=== PATIENT | female | born 1945 | race African-American/Black ===

== ENCOUNTER → 2016-09-14 | Outpatient (CLI) | payer OTHER ==
[2016-02-20 22:30] VITALS: BP 139/72
[~2016-09-14] MED LIST: ALBU1.25 NEB; AMLO1TAB95 PO; ASPI-482 PO; ATOR20TA58 PO; BUDE10.2 IH; CARV12.5 PO
--- NOTE | 2016-09-17 17:26 | CARD ---
APPROVED REPORT EXAM: Two-dimensional and M-mode echocardiogram with Doppler and color Doppler. Other Information Quality : Average Rhythm : NSR INDICATION Cardiomyopathy Mitral valve replacement, tricuspid valve replacement 2D DIMENSIONS RVDd2.7 (2.9-3.5cm)Left Atrium(2D)3.6 (1.6-4.0cm) IVSd0.8 (0.7-1.1cm)Aortic Root(2D)2.3 (2.0-3.7cm) LVDd4.2 (3.9-5.9cm)LVOT Diameter2.0 (1.8-2.4cm) PWd0.8 (0.7-1.1cm)LVDs2.3 (2.5-4.0cm) SV61.5 mlLVEF(%)50.2 (>50%) Aortic Valve AoV Peak Audi.109.6cm/sAoV VTI24.0cm AO Peak GR.4.8mmHgLVOT Peak Audi.83.7cm/s LVOT VTI 18.19cmAO Mean GR.3mmHg RICARDO (VMAX)2.97jj5TMI (VTI)2.33cm2 Mitral Valve MV E Ghaqugxn242.2cm/sMV DECEL MEEG306cl MV A Axrphstg045.8cm/sMV E Mean Gr.3mmHg MV MEG65prR/A Ratio0.8 MV A Sulpwpwn043arPMK (PHT)3.10cm2 TDI E/Lateral E'11.1E/Medial E'12.0 Pulmonary Valve PV Peak Rtnsrosr56.0cm/sPV Peak Grad.2mmHg RVOT VTI12.4cm Tricuspid Valve TR P. Glgucxgj010sc/sRAP MFWEFVHO4npCu TR Peak Gr.04djHvFOGA06gaAf Pulmonary Vein S1 Dwqkvsyg59.6cm/sD2 Enbuaqpu36.4cm/s LEFT VENTRICLE The left ventricle is normal size. There is normal left ventricular wall thickness. Left ventricle sy stolic function is low normal. The Ejection Fraction is 50%. Apical motion consistent with pacemaker activation. Tissue Doppler imaging reveals mild left ventricular diastolic dysfunction. Transmitral D oppler flow pattern is Grade I-abnormal relaxation pattern. There is no ventricular septal defect vis ualized. RIGHT VENTRICLE The right ventricle is normal size. The right ventricular systolic function is normal. There is a pac emaker lead seen in the RV/RA. ATRIA The left atrium size is normal. The right atrium size is normal. The interatrial septum is intact wit h no evidence for an atrial septal defect or patent foramen ovale as noted on 2-D or Doppler imaging. AORTIC VALVE The aortic valve is mildly sclerotic. The aortic valve is trileaflet. Doppler and Color Flow revealed trace aortic regurgitation. There is no significant aortic valvular stenosis. MITRAL VALVE s/p mitral valve ring annuloplasty Calculated mitral valve area is 3.1 cm2 with a mean pressure gradi ent of 3 mmHg across the valve. Doppler and Color Flow revealed trace mitral regurgitation. TRICUSPID VALVE s/p tricuspid valve ring annuloplasty Doppler and Color Flow revealed trace tricuspid regurgitation. The PA pressure was estimated at 23 mmHg. Mean gradient of 3.1 mmHg with a peak of 5.9 mmHg across th e valve. PHT 56 msec. PULMONIC VALVE The pulmonic valve is not well visualized. Doppler and Color Flow revealed no pulmonic valvular regur gitation. There is no pulmonic valvular stenosis. GREAT VESSELS The aortic root is normal in size. Normal pulmonary venous flow (Doppler). The IVC is normal in size and collapses >50% with inspiration. PERICARDIAL EFFUSION There is no evidence of significant pericardial effusion. Critical Notification Critical Value: No <Conclusion> Left ventricle systolic function is low normal. The Ejection Fraction is 50%. Transmitral Doppler flow pattern is Grade I-abnormal relaxation pattern. Trace aortic regurgitation. s/p mitral valve ring annuloplasty without any stenosis. Trace mitral regurgitation. Probable tricuspid valve ring annuloplasty without any stenosis. Trace tricuspid regurgitation. The PA pressure was estimated at 23 mmHg. There is no evidence of significant pericardial effusion.
== END | disposition home or self-care (01) ==
LOC: ECHO 08:44
PROVIDERS: ATTEND Internal Medicine Cardiovascular Disease
DX: I08.3 Combined rheumatic disorders of mitral, aortic and tricuspid valves (principal)
CPT/HCPCS: 93306

== ENCOUNTER 2017-02-25 21:24 | Emergency (ER) | payer OTHER ==
[2017-02-25] MEDS ORDERED: IPRATRPIUM/ALBUTEROL 0.5/2.5MG 3 ML NEBU. (21:40)
[2017-02-25] MEDS: IPRATRPIUM/ALBUTEROL 0.5/2.5MG 3 ML NEBU. NEB (21:43)
[2017-02-25 21:52] LABS: HEMATOCRIT 41.7 % (36.0-47.0); HEMOGLOBIN 13.6 g/dL (12.0-15.5); MEAN CORPUSCULAR HEMOGLOBIN 30 pg (25-35); MEAN CORPUSCULAR HGB CONC 33 g/dL (31-37); MEAN CORPUSCULAR VOLUME 91 fL (79-100); PLATELET COUNT 199 x10^3/uL (140-400); RED BLOOD COUNT 4.59 x10^6/uL (3.50-5.40); RED CELL DISTRIBUTION WIDTH 14.7 % (11.5-14.5); WHITE BLOOD COUNT 5.2 x10^3/uL (4.0-11.0)
[2017-02-25] MEDS ORDERED: IPRATRPIUM/ALBUTEROL 0.5/2.5MG 3 ML NEBU. NEB (22:15)
[2017-02-25] MEDS: methylPREDNISolone SOD SUCC PF 125 MG/2 ML VIAL. IV (22:52)
[2017-02-25 23:06] LABS: TROPONINI < 0.017 ng/mL (0.000-0.055)
[2017-02-25 23:49] LABS: ANION GAP 13 (6-14); BLOOD UREA NITROGEN 28 mg/dL (7-20); BUN/CREATININE RATIO 23 (6-20); CARBON DIOXIDE 25 mmol/L (21-32); CHLORIDE 105 mmol/L (98-107); CREATININE 1.2 mg/dL (0.6-1.0); GFR 53.4; GLUCOSE 180 mg/dL (70-99); POTASSIUM 4.3 mmol/L (3.5-5.1); SODIUM 143 mmol/L (136-145)
[2017-02-25 23:54] LABS: ALBUMIN 3.9 g/dL (3.4-5.0); ALK PHOS 90 U/L (46-116); ALT (SGPT) 25 U/L (14-59); AST (SGOT) 23 U/L (15-37); TOTAL BILIRUBIN 0.3 mg/dL (0.2-1.0); TOTAL PROTEIN 7.8 g/dL (6.4-8.2)
== END 2017-02-26 00:25 | disposition left against medical advice (07) ==
LOC: ER 02-26 00:25
DX: J45.901 Unspecified asthma with (acute) exacerbation (principal); J20.9 Acute bronchitis, unspecified; I11.9 Hypertensive heart disease without heart failure; E11.9 Type 2 diabetes mellitus without complications; E78.00 Pure hypercholesterolemia, unspecified; Z95.1 Presence of aortocoronary bypass graft; Z95.0 Presence of cardiac pacemaker; Z95.2 Presence of prosthetic heart valve; Z79.899 Other long term (current) drug therapy
CPT/HCPCS: 36415; 71010; 80053; 84484; 85027; 93005; 94640; 96374; 99285-25; J2930; J7620

== ENCOUNTER → 2017-10-10 | Outpatient (CLI) | payer MEDICARE, OTHER | END | disposition home or self-care (01) | LOC: ECHO 11:05 | DX: I25.5 Ischemic cardiomyopathy (principal); I13.0 Hypertensive heart and chronic kidney disease with heart failure and stage 1 through stage 4 chronic kidney disease, or unspecified chronic kidney disease; E11.22 Type 2 diabetes mellitus with diabetic chronic kidney disease; N18.3 Chronic kidney disease, stage 3 (moderate); I50.9 Heart failure, unspecified; E78.5 Hyperlipidemia, unspecified; J44.9 Chronic obstructive pulmonary disease, unspecified | CPT/HCPCS: 93306 ==

== ENCOUNTER → 2018-10-09 | Outpatient (CLI) | payer OTHER, MEDICARE ==
[2017-03-09 15:02] VITALS: BP 123/60
[~2018-10-09] MED LIST changes: +AMOX1TAB58 PO; +AZIT250T6 PO; +GUAI118L20 PO; +METF500T16 PO; +PRED20TA PO
--- NOTE | 2018-10-09 15:28 | CARD ---
MR#: [id number] Date of Study: 10/09/2018 Ordering Physician: KELLY HENNING, Referring Physician: KELLY HENNING Tech: Adrienne Jacobs RDCS APPROVED REPORT EXAM: Two-dimensional and M-mode echocardiogram with Doppler and color Doppler. Other Information Quality : Fair INDICATION Cardiac Disease: CAD Mitral and Tricuspid Repairs Surgery/Intervention Pacemaker: Date: 2008 CABG: Date: 2008 2D DIMENSIONS RVDd2.2 (2.9-3.5cm)Left Atrium(2D)3.2 (1.6-4.0cm) IVSd0.8 (0.7-1.1cm)Aortic Root(2D)2.5 (2.0-3.7cm) LVDd4.3 (3.9-5.9cm)LVOT Diameter1.9 (1.8-2.4cm) PWd0.9 (0.7-1.1cm)LVDs3.1 (2.5-4.0cm) FS (%) 28.6 %SV45.5 ml LVEF(%)55.4 (>50%) Aortic Valve AoV Peak Audi.111.0cm/sAoV VTI22.9cm AO Peak GR.4.9mmHgLVOT Peak Audi.89.0cm/s AO Mean GR.3mmHgAVA (VMAX)2.29cm2 RICARDO (VTI)2.40cm2 Mitral Valve MV E Xiykxkjc917.6cm/sMV E Peak Gr.10mmHg MV DECEL OEXE152lqLK A Cdpbqouq164.7cm/s MV E Mean Gr.5mmHgE/A Ratio1.0 Tricuspid Valve TR P. Nfiwrair001dt/sRAP IBKAWNYB3hcDs TR Peak Gr.81qmFxAFJE89seUg Pulmonary Vein S1 Mqleskxf08.7cm/sD2 Povcfrau22.1cm/s LEFT VENTRICLE The left ventricle is normal size. There is normal left ventricular wall thickness. Left ventricle sy stolic function is mildly impaired. The Ejection Fraction is 45-50%. There is mild global hypokinesis of the left ventricle. Septal motion suggestive of conduction defect. Transmitral Doppler flow patte rn is Grade I-abnormal relaxation pattern. RIGHT VENTRICLE The right ventricle is mildly dilated. RV Systolic function is mildly reduced. There is a pacemaker l ead in the right ventricle. ATRIA The left atrium size is normal. The right atrium is mildly dilated. A pacemaker is seen in the right atrium consistent with history. The interatrial septum is intact with no evidence for an atrial septa l defect or patent foramen ovale as noted on 2-D or Doppler imaging. AORTIC VALVE The aortic valve is calcified but opens well. Doppler and Color Flow revealed trace aortic regurgitat ion. There is no significant aortic valvular stenosis. MITRAL VALVE There is a mitral valve repair. There is no evidence of mitral valve prolapse. Calculated mitral valv e area is 1.6 cm2 with maximum pressure gradient of 10 mmHg and mean pressure gradient of 5 mmHg. Dop pler and Color-flow revealed trace to mild mitral regurgitation. TRICUSPID VALVE There is a tricuspid valve repair. Doppler and Color Flow revealed trace tricuspid regurgitation. The re is mild pulmonary hypertension. The PA pressure was estimated at 32 mmHg. There is no tricuspid va lve stenosis. PULMONIC VALVE The pulmonic valve is not well visualized. Doppler and Color Flow revealed no pulmonic valvular regur gitation. There is no pulmonic valvular stenosis. GREAT VESSELS The aortic root is normal in size. The ascending aorta is not well seen. The IVC is normal in size an d collapses >50% with inspiration. PERICARDIAL EFFUSION There is no evidence of significant pericardial effusion. Critical Notification Critical Value: No <Conclusion> Left ventricle systolic function is mildly impaired. The Ejection Fraction is 45-50%. There is mild global hypokinesis of the left ventricle. Septal motion suggestive of conduction defect . There is a pacemaker lead in the right ventricle. RV Systolic function is mildly reduced. Calculated mitral valve area is 1.6 cm2 with maximum pressure gradient of 10 mmHg and mean pressure g radient of 5 mmHg. Signed by : Rodolfo Kaur, Electronically Approved : 10/09/2018 15:28:07
== END | disposition home or self-care (01) ==
LOC: ECHO 12:47
PROVIDERS: ATTEND Internal Medicine Cardiovascular Disease
DX: I08.0 Rheumatic disorders of both mitral and aortic valves (principal); I25.10 Atherosclerotic heart disease of native coronary artery without angina pectoris; I27.20 Pulmonary hypertension, unspecified; Z95.0 Presence of cardiac pacemaker
CPT/HCPCS: 93306

== ENCOUNTER → 2018-10-29 | Outpatient (CLI) | payer OTHER ==
[2017-03-09 15:02] VITALS: BP 123/60
--- NOTE | 2018-10-29 08:43 | RAD ---
MR#: [id number] Date of Study: 10/29/2018 Ordering Physician: KELLY HENNING, Referring Physician: KELLY HENNING, Tech: Theo Velasquez MBA, RDMS, RVT, RDCS, RTR APPROVED REPORT Patient Location: OUT-PATIENT Indications Uncontrolled HTN Renal Artery Doppler Right Renal Artery Left Renal Arter y Proximal 122.0/26.0 cm/secProximal 81.0/16.0 cm/sec Mid 121.0/20.0 cm/secMid 80.0/19.0 cm/sec Distal 70.0/23.0 cm/secDistal 73.0/22.0 cm/sec Renal/Aorta Ratio 0.93Renal/Aorta Ratio 0.61 Prox. Resistive Index 0.79Prox. Resistive Index 0.80 Mid Resistive Index 0.83Mid Resistive Index 0.77 Distal Resistive Index 0.68Distal Resistive Index 0.70 Rt. Segmental A. 27.0/11.0 cm/secLt. Segmental A. 24.0/7.0 cm/sec Renal Measurements RightLeft Kidney Skkwhp12 cm cmKidney Length9.5 cm cm Right Additional FindingsLeft Additional Findings Aortic Duplex A/PTransverseLongitudinal Proximal Aorta 1.8cm Mid Aorta 1.5cm Distal Aorta 1.4cm Aortic Doppler VelocityWaveform Proximal Aorta 131.0 cm/sec Findings Arteaga scale images are grossly wnl. Left renal cyst noted in the inferior pole measuring around 2.7 cm. Peak systolic velocities are grossly wnl. No significant renal artery stenosis. Normal RAR and RI Critical Notification Critical Value: No <Conclusion> No significant renal artery stenosis. Signed by : Rodolfo Kaur, Electronically Approved : 10/29/2018 08:42:26
== END | disposition home or self-care (01) ==
LOC: US 07:16
PROVIDERS: ATTEND Internal Medicine Cardiovascular Disease
DX: I10 Essential (primary) hypertension (principal); N28.1 Cyst of kidney, acquired
CPT/HCPCS: 93975

== ENCOUNTER 2019-02-09 17:01 | Emergency (ER) | payer OTHER ==
[~2019-02-09] VITALS: Ht 160 cm; Wt 63.5 kg
[2019-02-09 17:45] VITALS: BP 140/67
--- NOTE | 2019-02-09 17:54 | PHYS DOC ---
Past Medical History Past Medical History: Asthma, Diabetes-Type II, High Cholesterol, Heart Disease, Hypertension, Renal Disease (JUAN RODRIGUEZ MD) Past Surgical History: Coronary Bypass Surgery, Pacemaker, Other Additional Past Surgical Histo: VALVE REPLACEMENT (JUAN RODRIGUEZ MD) Alcohol Use: None Drug Use: None (JUAN RODRIGUEZ MD) Adult General Chief Complaint Chief Complaint: SHORTNESS OF BREATH HPI HPI Patient is a 73 year old female with history of hypertension, dyslipidemia, coronary artery disease and status post CABG, diabetes mellitus and asthma who presents with complaint of shortness of breath. Patient states she had shingles in left side of lower chest and flank for 5 weeks that still is painful without new change today. Patient complaining of shortness of breath since 1400 today as a constant shortness of breath with dry cough without chest pain, fever and chills, sore throat, earache, sick contact. Patient states she took 2 home nebulizers without improvement of her condition. (JUAN RODRIGUEZ MD) Review of Systems Review of Systems Constitutional: Denies fever or chills [] Eyes: Denies change in visual acuity, redness, or eye pain [] HENT: Denies nasal congestion or sore throat [] Respiratory: Reports cough and shortness of breath Cardiovascular: No additional information not addressed in HPI [] GI: Denies abdominal pain, nausea, vomiting, bloody stools or diarrhea [] : Denies dysuria or hematuria [] Musculoskeletal: Denies back pain or joint pain [] Integument: Denies skin lesions [] Neurologic: Denies headache, focal weakness or sensory changes [] Endocrine: Denies polyuria or polydipsia [] All other systems were reviewed and found to be within normal limits, except as documented in this note. (JUAN RODRIGUEZ MD) Current Medications Current Medications Current Medications Medications (Trade) Dose Ordered Sig/Jeremy Start Time Stop Time Status Last Admin Dose Admin Albuterol/ Ipratropium (Duoneb) 3 ml 1X ONCE 02/09/19 17:45 02/09/19 17:47 DC 02/09/19 18:03 3 ML Methylprednisolone Sodium Succinate (SOLU-Medrol 125MG VIAL) 125 mg 1X ONCE 02/09/19 17:45 02/09/19 17:47 DC 02/09/19 18:12 125 MG (AMILCAR HANDY DO) Allergies Allergies Allergies Coded Allergies Type Severity Reaction Last Updated Verified No Known Drug Allergies 10/15/14 No (AMILCAR HANDY DO) Physical Exam Physical Exam Constitutional: Well developed, well nourished, mild distress, non-toxic appearance. [] HENT: Normocephalic, atraumatic, bilateral external ears normal, oropharynx moist, no oral exudates, nose normal. [] Eyes: PERRLA, EOMI, conjunctiva normal, no discharge. [] Neck: Normal range of motion, no tenderness, supple, no stridor. [] Cardiovascular:Heart rate regular rhythm, no murmur [] Lungs & Thorax: Mild respiratory distress with wheezing and intercostal retraction Abdomen: Bowel sounds normal, soft, no tenderness, no masses, no pulsatile masses. [] Skin: Warm, dry, no erythema, left lower chest and flank area with scar of shingles Back: No tenderness, no CVA tenderness. [] Extremities: No tenderness, no cyanosis, no clubbing, ROM intact, no edema. [] Neurologic: Alert and oriented X 3, normal motor function, normal sensory function, no focal deficits noted. [] Psychologic: Affect normal, judgement normal, mood normal. [] (JUAN RODRIGUEZ MD) Current Patient Data Vital Signs Vital Signs Date Time Temp Pulse Resp B/P (MAP) Pulse Ox O2 Delivery O2 Flow Rate FiO2 02/09/19 17:55 98 Room Air 02/09/19 17:45 98.1 82 18 140/67 (91) 98.1 (AMILCAR HANDY DO) Lab Values Laboratory Tests Test 02/09/19 18:00 02/09/19 18:50 White Blood Count 7.4 x10^3/uL (4.0-11.0) Red Blood Count 4.19 x10^6/uL (3.50-5.40) Hemoglobin 12.5 g/dL (12.0-15.5) Hematocrit 37.8 % (36.0-47.0) Mean Corpuscular Volume 90 fL (79-100) Mean Corpuscular Hemoglobin 30 pg (25-35) Mean Corpuscular Hemoglobin Concent 33 g/dL (31-37) Red Cell Distribution Width 16.0 % (11.5-14.5) H Platelet Count 159 x10^3/uL (140-400) Neutrophils (%) (Auto) 57 % (31-73) Lymphocytes (%) (Auto) 11 % (24-48) L Monocytes (%) (Auto) 12 % (0-9) H Eosinophils (%) (Auto) 19 % (0-3) H Basophils (%) (Auto) 1 % (0-3) Neutrophils # (Auto) 4.2 x10^3/uL (1.8-7.7) Lymphocytes # (Auto) 0.8 x10^3/uL (1.0-4.8) L Monocytes # (Auto) 0.9 x10^3/uL (0.0-1.1) Eosinophils # (Auto) 1.4 x10^3/uL (0.0-0.7) H Basophils # (Auto) 0.1 x10^3/uL (0.0-0.2) Segmented Neutrophils % 64 % (35-66) Lymphocytes % 6 % (24-48) L Atypical Lymphocytes % (Manual) 1 % (0-0) H Monocytes % 6 % (0-10) Eosinophils % 23 % (0-5) H Platelet Estimate Adequate (ADEQUATE) Sodium Level 139 mmol/L (136-145) Potassium Level 4.2 mmol/L (3.5-5.1) Chloride Level 102 mmol/L (98-107) Carbon Dioxide Level 30 mmol/L (21-32) Anion Gap 7 (6-14) Blood Urea Nitrogen 22 mg/dL (7-20) H Creatinine 1.1 mg/dL (0.6-1.0) H Estimated GFR (Cockcroft-Gault) 58.7 BUN/Creatinine Ratio 20 (6-20) Glucose Level 163 mg/dL (70-99) H Calcium Level 9.7 mg/dL (8.5-10.1) Total Bilirubin 0.4 mg/dL (0.2-1.0) Aspartate Amino Transferase (AST) 20 U/L (15-37) Alanine Aminotransferase (ALT) 19 U/L (14-59) Alkaline Phosphatase 84 U/L (46-116) Creatine Kinase 66 U/L (26-192) Troponin I Quantitative < 0.017 ng/mL (0.000-0.055) DV-Ttw-U-Type Natriuretic Peptide 477 pg/mL (0-124) H Total Protein 7.8 g/dL (6.4-8.2) Albumin 3.8 g/dL (3.4-5.0) Albumin/Globulin Ratio 1.0 (1.0-1.7) Laboratory Tests 02/09/19 18:00 Laboratory Tests 02/09/19 18:50 (AMILCAR HANDY DO) EKG EKG [] (JUAN RODRIGUEZ MD) Radiology/Procedures Radiology/Procedures [] (JUAN RODRIGUEZ MD) Course & Med Decision Making Course & Med Decision Making Pertinent Labs and Imaging studies are pending. Evaluation of patient in ER showed 73-year-old female patient multiple medical problems presented to ER with complaining of shortness of breath since this afternoon. Labs and chest x-ray and EKG is pending. Sign out given to at 1800 for further evaluation and final disposition. Discussed current findings and plan with patient and family, who acknowledge understanding and agreement. (JUAN RODRIGUEZ MD) Course & Med Decision Making Shortness of breath/symptoms improved with breathing treatment and steroids. EKG, chest x-ray and lab work unrevealing. Symptoms most consistent with asthma exacerbation. We'll treat supportively with pulmonology follow-up. Return precautions reviewed. Patient verbalizes understanding and agreement discharge instructions prior to departure. (AMILCAR HANDY DO) Dragon Disclaimer Dragon Disclaimer This electronic medical record was generated, in whole or in part, using a voice recognition dictation system. (JUAN RODRIGUEZ MD) Departure Departure Impression: Primary Impression: Asthma exacerbation Additional Impression: Shortness of breath Disposition: 01 HOME, SELF-CARE Condition: GOOD Referrals: SHAHAB GARCIA MD (PCP) Patient Instructions: Asthma, Adult, Ayis-zv-Jxgy, Shortness of Breath, Uvia-pu-Uljn Additional Instructions: Please take steroids and antibiotics as directed and continue home nebulized breathing treatments every 4 hours as needed. Follow up with your chief catalyst operator as scheduled. Return to the ED if new or worsening symptoms. Scripts Azithromycin (ZITHROMAX) 250 Mg Tablet 1 PKG PO UD, #6 TAB Prov: AMILCAR HANDY DO 02/09/19 Prednisone (PREDNISONE) 50 Mg Tablet 1 TAB PO DAILY, #5 TAB Prov: AMILCAR HANDY DO 02/09/19 Problem Qualifiers JUAN RODRIGUEZ MD Feb 09, 2019 17:54 AMILCAR HANDY DO Feb 09, 2019 19:39
[2019-02-09] MEDS: IPRATRPIUM/ALBUTEROL 0.5/2.5MG 3 ML NEBU. NEB ONE (18:03)
[2019-02-09 18:11] LABS: BASO # 0.1 x10^3/uL (0.0-0.2); BASO % 1 % (0-3); EOS # 1.4 x10^3/uL (0.0-0.7); EOS % 19 % (0-3); HEMATOCRIT 37.8 % (36.0-47.0); HEMOGLOBIN 12.5 g/dL (12.0-15.5); LYMPH # 0.8 x10^3/uL (1.0-4.8); LYMPH % 11 % (24-48); MEAN CORPUSCULAR HEMOGLOBIN 30 pg (25-35); MEAN CORPUSCULAR HGB CONC 33 g/dL (31-37); MEAN CORPUSCULAR VOLUME 90 fL (79-100); MONO # 0.9 x10^3/uL (0.0-1.1); MONO % 12 % (0-9); NEUT # 4.2 x10^3/uL (1.8-7.7); NEUT % 57 % (31-73); PLATELET COUNT 159 x10^3/uL (140-400); RED BLOOD COUNT 4.19 x10^6/uL (3.50-5.40); WHITE BLOOD COUNT 7.4 x10^3/uL (4.0-11.0)
[2019-02-09] MEDS: methylPREDNISolone SOD SUCC PF 125 MG/2 ML VIAL. IV ONE (18:12)
[2019-02-09 19:06] LABS: % ATYL 1 % (0-0); % EOS 23 % (0-5); % LYMPHS 6 % (24-48); % MONOS 6 % (0-10); % SEGS 64 % (35-66)
--- NOTE | 2019-02-09 19:06 | RAD ---
AP portable chest 02/09/2019. Reason for exam: Shortness of breath. Comparison is made with a study of 03/08/2017. A pacemaker device remains in place along with a prosthetic valve. The left lower lobe is reinflated. No new infiltrate or effusion is seen. The heart may be mildly enlarged, but appears unchanged. IMPRESSION: Clearing of the left base since the prior radiograph. No acute findings. Electronically signed by: Oscar Acosta Jr., MD (02/09/2019 7:03 PM) [facility]
[2019-02-09 19:07] LABS: PLT ESTIMATE ADEQUATE (ADEQUATE)
[2019-02-09 19:10] LABS: CALCIUM 9.7 mg/dL (8.5-10.1); CREATININE 1.1 mg/dL (0.6-1.0); GFR 58.7; POTASSIUM 4.2 mmol/L (3.5-5.1)
[2019-02-09 19:17] LABS: ALBUMIN 3.8 g/dL (3.4-5.0); TOTAL BILIRUBIN 0.4 mg/dL (0.2-1.0); TOTAL PROTEIN 7.8 g/dL (6.4-8.2)
[2019-02-09] MEDS ORDERED: PRED50TA PO (19:39)
[2019-02-09] MEDS ORDERED: AZIT250T PO (19:39)
--- NOTE | 2019-02-10 06:54 | EKG ---
[facility] [address] [place] [address] Test Date: 2019-02-09 Test Time: 18:08:58 Pat Name: MAJO CONNOLLY Department: Room: Gender: F Gas Fitter: : 1945 Requested By: JUAN RODRIGUEZ Order Number: [id number] Reading MD: Rodolfo Kaur MD Measurements Intervals [place] Rate: 82 P: 90 [place]: 162 QRS: -58 QRSD: 118 T: 56 QT: 394 QTc: 463 Interpretive Statements PROBABLE SINUS RHYTHM RBBB NON-SPECIFIC ST/T CHANGES LAFB Electronically Signed On 02-12-2019 11:08:56 APPEALS AND GENERALIST CLERK by Rodolfo Kaur MD
== END 2019-02-09 20:05 | disposition home or self-care (01) ==
LOC: ER 17:01
DX: J45.901 Unspecified asthma with (acute) exacerbation (principal); I10 Essential (primary) hypertension; I25.810 Atherosclerosis of coronary artery bypass graft(s) without angina pectoris; J45.909 Unspecified asthma, uncomplicated; E11.9 Type 2 diabetes mellitus without complications; E78.00 Pure hypercholesterolemia, unspecified; I11.9 Hypertensive heart disease without heart failure; Z95.0 Presence of cardiac pacemaker
CPT/HCPCS: 36415; 71045; 80053; 82550; 83880; 84484; 85007; 85025; 93005; 94640; 96374; 99285; J2930; J7620

== ENCOUNTER → 2019-04-21 | Outpatient (CLI) | payer OTHER ==
[~2019-04-21] MED LIST changes: +AZIT250T PO; +PRED50TA PO; +REGADENOSON 0.4 MG/5 ML DISP.SYRIN. IV ONE
--- NOTE | 2019-04-21 14:09 | RAD ---
MR#: [id number] Date of Study: 04/21/2019 Ordering Physician: KELLY HENNING, Referring Physician: PATITO RAMIREZ Tech: RT Cydney (R) (N) APPROVED REPORT Test Type: Pharmacological Stress Nurse/Tech: Courtney HOPE Test Indications: CAD Cardiac History: 2009=2 valves & CABG x3, HTN, AICD, See EMR. Medications: See EMR. Medical History: Asthma, DM, See EMR. Resting ECG: Paced Resting Heart Rate: 81 bpm Resting Blood Pressure: 128/69mmHg Pretest Chest Pain: None Nurse/Tech Notes Lungs CTA, Heart tones regular. Consent: The procedure was explained to the patient in lay terms. Informed consent was witnessed. Eusebio eout was entered into [employer]. History and Stress Test performed by RT Ashley (R) (N) Pharm. Details Pharmacologic stress testing was performed using 0.4mg per 5ml of regadenoson given intravenously ove r 7-10 seconds. Stress Symptoms Dyspnea POST EXERCISE Reason for Termination: Infusion complete Max HR: 115 bpm Max Blood Pressure: 105/47mmHg Blood Pressure response to exercise: Normal blood pressure response during stress. Heart Rate response to exercise: WNL Chest Pain: No. Arrhythmia: Yes. Frequent PVCs. ST Change: No. INTERPRETATION Stress EKG Conclusion: The resting EKG shows an atrial paced rhythm. The stress EKG shows no significant changes from baseline. No EKG evidence of stressed induced ischemia. Imaging Protocol IMAGE PROTOCOL: Rest Tc-99m/stress Tc-99m 1 day Rest: Stress: Viability: Radiopharm.Tc99m VuiurvfbiCw80i Sestamibi Nsed17aLs 30mCi Duration 15min. 15min. Img Date 04/21/2019 04/21/2019 Inj-Img Lodh96kbv. 60min. Rest Admin Site:IV - Left AntecubitalAdministrator:RT Cydney (R)(N) Stress Admin Site: IV - Left AntecubitalAdministrator: RT Abeba Ramirez)(N) STRESS DATA End Diast. Vol.57.0mlAv. Heart Rate81.0bpm End Syst. Vol.16.0mlCO Index BSA0.0L/min Myocardial Mass97.0gEject. Weuhwgbf82.0% Stress Rates Pk. Fill Rate2.86EDV/secLVtime Pk. Fill 161.48msec Pk. Empty Rate4.81ESV/secLVtime Pk. Gtwcz400.72msec 1/3 Pk. Fill1.35EDV/sec Stress Scores Regional WT0.00Summed WT5.00 Regional WM0.00Summed WM10.00 LV Perfusion The stress images show no significant defects. The rest images show no significant defects. Nuclear imaging shows no reversible ischemia or infarct. Wall Motion Left ventricular systolic function is normal with an ejection fraction of greater than 70%. LV Perf. Quant 17 Seg. SSS0.00 17 Seg. SRS0.00 17 Seg. SDS0.00 Stress Defect Extent (% LAD)0.00Rest Defect Extent (% LAD)0.00Rev. Defect Extent (% LAD)0.00 Stress Defect Extent (% LCX) 0.00Rest Defect Extent (% LCX)0.00Rev. Defect Extent (% LCX)0.00 Stress Defect Extent (% RCA)0.00Rest Defect Extent (% RCA)0.00Rev. Defect Extent (% RCA)0.00 Stress Defect Extent (% TITUS)0.00Rest Defect Extent (% TITSU)0.00Rev. Defect Extent (% TITUS)0.00 Conclusion 1. Paced rhythm. 2. Nuclear imaging shows no reversible ischemia or infarct. 3. Normal left ventricular systolic function with an ejection fraction of greater than 70%. 4. Low risk Lexiscan nuclear stress test. Signed by : Oscar Rivas MD Electronically Approved : 04/21/2019 14:09:31
== END | disposition home or self-care (01) ==
LOC: NM 08:43
PROVIDERS: ATTEND Internal Medicine Cardiovascular Disease
DX: I25.810 Atherosclerosis of coronary artery bypass graft(s) without angina pectoris (principal); I10 Essential (primary) hypertension; J45.909 Unspecified asthma, uncomplicated; E11.9 Type 2 diabetes mellitus without complications; Z95.1 Presence of aortocoronary bypass graft; Z95.810 Presence of automatic (implantable) cardiac defibrillator
CPT/HCPCS: 78452; 93017; A9500; J2785

== ENCOUNTER → 2019-06-25 | Outpatient (CLI) | payer OTHER ==
[~2019-06-25] MED LIST changes: -REGADENOSON 0.4 MG/5 ML DISP.SYRIN. IV ONE
--- NOTE | 2019-06-25 11:35 | RAD ---
Examination: Ultrasound pelvis HISTORY: History of pelvic pain, discomfort COMPARISON: None available FINDINGS: The uterus measures 5.1 x 3.6 x 2.3 cm. The endometrium could not be identified. The right and left ovaries could not be identified due to overlying bowel gas. IMPRESSION: Limited exam. Electronically signed by: Yehuda Carrasquillo MD (06/25/2019 11:32 AM) [id number]
--- NOTE | 2019-06-25 11:43 | RAD ---
Examination: Ultrasound abdomen complete HISTORY: History of abdominal pain, discomfort COMPARISON: None available FINDINGS: The liver length measures 16.7 cm. The common bile duct measures 1.7 mm in diameter. There is a small echogenicity identified in the gallbladder measuring 4 mm could be a polyp or sludge. The visualized pancreas grossly appears unremarkable. The right kidney measures 8.9 x 4.6 x 2.6 cm. The left kidney measures 9.1 x 3.6 x 4.0 cm. There is a cystic structure identified in the left kidney measuring 2.1 cm likely a cyst. The spleen measures 9.4 cm. The visualized aorta, IVC are within normal limits of dimension. IMPRESSION: 1. Small echogenicity identified in the gallbladder measuring 4 mm could be a polyp or sludge. 2. A 2.1 cm cyst identified in the left kidney. Electronically signed by: Yehuda Carrasquillo MD (06/25/2019 11:40 AM) [id number]
== END | disposition home or self-care (01) ==
LOC: US 09:43
PROVIDERS: ATTEND Nurse Practitioner
DX: N28.1 Cyst of kidney, acquired (principal); K82.8 Other specified diseases of gallbladder
CPT/HCPCS: 76700; 76856

== ENCOUNTER → 2019-07-24 | Outpatient (CLI) | payer MEDICARE, OTHER ==
[~2019-07-24] VITALS: Ht 157.5 cm; Wt 62.1 kg
[~2019-07-24] MED LIST changes: +SINCALIDE 1.24 MCG in IV NORMAL SALINE 50ML 30 ML IV ONE
--- NOTE | 2019-07-24 10:12 | RAD ---
Examination: Hepatobiliary Scan: History: gallbladder polyp. Technique: 5.5 mCi technetium 99m Choletec was administered intravenously and spot views were obtained on the gamma camera for a Nuclear Medicine hepatobiliary scan. 1.2 mcg of CCK drip was administered over 30 minutes and the region of interest was drawn around the gallbladder and gallbladder ejection fraction was calculated. Findings: There is rapid uptake of activity from the blood pool and concentration in the liver. Activity seen in the gallbladder and small bowel. There is a rapid response of the gallbladder to CCK and the gallbladder ejection fraction is 99% which is normal. Impression: Normal hepatobiliary scan. Normal gallbladder function. Electronically signed by: Yehuda Carrasquillo MD (07/24/2019 10:09 AM) [id number]
== END | disposition home or self-care (01) ==
LOC: NM 11:34
PROVIDERS: ATTEND Surgery
DX: K82.4 Cholesterolosis of gallbladder (principal)
CPT/HCPCS: 78227; A9537; J2805

== ENCOUNTER → 2019-10-28 | Outpatient (CLI) | payer OTHER ==
[~2019-10-28] MED LIST changes: -SINCALIDE 1.24 MCG in IV NORMAL SALINE 50ML 30 ML IV ONE
--- NOTE | 2019-10-28 16:29 | CARD ---
MR#: [id number] Date of Study: 10/28/2019 Ordering Physician: KELLY HENNING, Referring Physician: KELLY HENNING Tech: Adrienne Jacobs RDCS APPROVED REPORT EXAM: Two-dimensional and M-mode echocardiogram with Doppler and color Doppler. Other Information Quality : Good INDICATION Cardiac Disease: CAD Surgery/Intervention ICD/Pacemaker: Date: 2008 CABG: Date: 2008 2D DIMENSIONS RVDd2.8 (2.9-3.5cm)Left Atrium(2D)2.6 (1.6-4.0cm) IVSd0.8 (0.7-1.1cm)Aortic Root(2D)2.5 (2.0-3.7cm) LVDd4.0 (3.9-5.9cm)LVOT Diameter2.0 (1.8-2.4cm) PWd0.9 (0.7-1.1cm)LVDs2.6 (2.5-4.0cm) FS (%) 34.5 %SV43.8 ml LVEF(%)64.2 (>50%) Aortic Valve AoV Peak Audi.135.7cm/sAoV VTI26.9cm AO Peak GR.7.4mmHgLVOT Peak Audi.74.6cm/s LVOT VTI 16.19cmAO Mean GR.4mmHg RICARDO (VMAX)1.83qm1EXO (VTI)1.86cm2 Mitral Valve MV E Vjbcxmbp481.7cm/sMV DECEL [id number] MV A Chdhnidq889.1cm/sMV QNM36dq E/A Ratio1.1MVA (PHT)3.71cm2 TDI E/Lateral E'21.0E/Medial E'30.9 Tricuspid Valve TR P. Wukpfzke849sr/sRAP UKRJYRBR6rxQp TR Peak Gr.39cwLcWHMS75elHh Pulmonary Vein S1 Uxgyzibb79.7cm/sD2 Zsoomnud19.2cm/s LEFT VENTRICLE The left ventricle is normal size. There is normal left ventricular wall thickness. The left ventricu lar systolic function is normal. The Ejection Fraction is 55%. Septal motion consistent with conducti on abnormality. Transmitral Doppler flow pattern is Grade I-abnormal relaxation pattern. RIGHT VENTRICLE The right ventricle is normal size. The right ventricular systolic function is normal. There is a pac emaker lead in the right ventricle. ATRIA The left atrium size is normal. The right atrium size is normal. A pacemaker is seen in the right atr ium consistent with history. The interatrial septum is intact with no evidence for an atrial septal d efect or patent foramen ovale as noted on 2-D or Doppler imaging. AORTIC VALVE The aortic valve is calcified but opens well. Doppler and Color Flow revealed no significant aortic r egurgitation. There is no significant aortic valvular stenosis. MITRAL VALVE The mitral valve has been repaired. There is no evidence of mitral valve prolapse. Calculated mitral valve area is 3.4 cm2 with a mean pressure gradient of 6 mmHg. Doppler and Color-flow revealed trace mitral regurgitation. TRICUSPID VALVE There is a tricuspid valve repair. Doppler and Color Flow revealed trace tricuspid regurgitation. The PA pressure was estimated at 31 mmHg. There is no tricuspid valve stenosis. PULMONIC VALVE The pulmonic valve is not well visualized. Doppler and Color Flow revealed no pulmonic valvular regur gitation. There is no pulmonic valvular stenosis. GREAT VESSELS The aortic root is normal in size. The ascending aorta is normal in size. The IVC is normal in size a nd collapses >50% with inspiration. PERICARDIAL EFFUSION There is no evidence of significant pericardial effusion. Critical Notification Critical Value: No <Conclusion> The left ventricular systolic function is normal. The Ejection Fraction is 55%. There is a pacer/ICD lead in the right atrium and ventricle. s/p tricuspid and mitral annuloplasty. Trace mitral regurgitation. Trace tricuspid regurgitation. The PA pressure was estimated at 31 mmHg. There is no evidence of significant pericardial effusion. Signed by : Kelly Henning, Electronically Approved : 10/28/2019 16:28:29
== END | disposition home or self-care (01) ==
LOC: ECHO 12:54
PROVIDERS: ATTEND Internal Medicine Cardiovascular Disease
DX: I35.8 Other nonrheumatic aortic valve disorders (principal); I25.10 Atherosclerotic heart disease of native coronary artery without angina pectoris
CPT/HCPCS: 93306

== ENCOUNTER 2019-11-07 19:19 | Emergency (ER) | payer OTHER ==
[~2019-11-07] VITALS: Ht 157.5 cm; Wt 60.0 kg
--- NOTE | 2019-11-07 19:53 | PHYS DOC ---
Past Medical History Past Medical History: Asthma, Diabetes-Type II, GERD, High Cholesterol, Heart Disease, Hypertension, Renal Disease Past Surgical History: Coronary Bypass Surgery, Pacemaker, Other Additional Past Surgical Histo: VALVE REPAIR x's 2, AICD Smoking Status: Former Smoker Alcohol Use: None Drug Use: None General Adult EDM: Chief Complaint: SHORTNESS OF BREATH HPI: HPI: Patient is a 74 year [id number]-nbb female past medical history of hypertension hyperlipidemia diabetes and kidney disease not on dialysis presents with a chief complaint of shortness of breath and bilateral lower extremity weakness. Patient states symptoms been ongoing for the last 2 days comes and goes and last for seconds. Patient states shortness of breath is worse with exertion. Patient denies any associated runny nose stuffy nose cough fever or chills. Patient denies any chest pain. She denies any abdominal pain. Patients lungs are clear on examination. Patient has no focal deficit. Patient arrived by private vehicle. She ambulated into the ER. Patient states he has been treated by her PCP since for UTI. Rx antibiotics on 10/17. Patient states she had a strong smelling urine. Patient states she had a follow up appointment with PCP today-- PCP prescribed a new medications which is at the pharmacy. Patient states pcp also ordered a Kidney US. State she has a history of elevated creatine. Review of Systems: Review of Systems: Constitutional: Denies fever or chills. [] Eyes: Denies change in visual acuity. [] HENT: Denies nasal congestion or sore throat. [] Respiratory: Denies cough [positive shortness of breath] Cardiovascular: Denies chest pain or edema. [] GI: Denies abdominal pain, nausea, vomiting, bloody stools or diarrhea. [] : Denies dysuria. [] Musculoskeletal: Denies back pain or joint pain. [] Integument: Denies rash. [] Neurologic: Denies headache, focal weakness or sensory changes. [lower extremities weakness] Endocrine: Denies polyuria or polydipsia. [] Lymphatic: Denies swollen glands. [] Psychiatric: Denies depression or anxiety. [] Heart Score: Risk Factors: Risk Factors: DM, Current or recent (<one month) smoker, HTN, HLP, family history of CAD, obesity. Risk Scores: Score 0 - 3: 2.5% MACE over next 6 weeks - Discharge Home Score 4 - 6: 20.3% MACE over next 6 weeks - Admit for Clinical Observation Score 7 - 10: 72.7% MACE over next 6 weeks - Early Invasive Strategies Allergies: Allergies: Allergies Coded Allergies Type Severity Reaction Last Updated Verified No Known Drug Allergies 10/15/14 No Physical Exam: PE: Constitutional: Well developed, well nourished, no acute distress, non-toxic appearance. [] HENT: Normocephalic, atraumatic, bilateral external ears normal, oropharynx moist, no oral exudates, nose normal. [] Eyes: PERRLA, EOMI, conjunctiva normal, no discharge. [] Neck: Normal range of motion, no tenderness, supple, no stridor. [] Cardiovascular:Heart rate regular rhythm, no murmur [] Lungs & Thorax: Bilateral breath sounds clear to auscultation [] Abdomen: Bowel sounds normal, soft, no tenderness, no masses, no pulsatile m asses. [] Skin: Warm, dry, no erythema, no rash. [] Back: No tenderness, no CVA tenderness. [] Extremities: No tenderness, no cyanosis, no clubbing, ROM intact, no edema. [] Neurologic: Alert and oriented X 3, normal motor function, normal sensory function, no focal deficits noted. [] Psychologic: Affect normal, judgement normal, mood normal. [] EKG: EKG: EKG at 1941 heart rate 81 sinus rhythm left axis deviation no STEMI EKG compared to previous which was April 19, 2009 no acute changes. [] Radiology/Procedures: Radiology/Procedures: [] Course & Med Decision Making: Course & Med Decision Making Pertinent Labs and Imaging studies reviewed. (See chart for details) [] Patient was evaluated for chief complaint. Work-up consisted of laboratory analysis radiologic imaging and EKG. Results reviewed and discussed with patient. Patient found to have a sodium of 128 and a creatinine of 1.5. Patient BNP slightly elevated at 847. Chest x-ray no focal infiltrates cardiomegaly or effusion. Patient currently denies any shortness of breath. She tells me that she was seen by her primary care physician today. Patient was treated with 1 L of IV fluids. Patient states she has prescription for urinary tract infection waiting at the pharmacy. At this time I think patient is stable for discharge. Patient advised to follow-up with her primary care physician. Patient advised to return to the ER if symptoms persist get worse or any new concerning symptoms arise. Dragon Disclaimer: Dragon Disclaimer: This electronic medical record was generated, in whole or in part, using a voice recognition dictation system. Departure Departure Impression: Primary Impression: Dyspnea Additional Impressions: UTI (urinary tract infection) Hyponatremia Elevated serum creatinine Disposition: HOME, SELF-CARE Condition: STABLE Referrals: SHAHAB GARCIA MD (PCP) Patient Instructions: Hyponatremia, Shortness of Breath, Urinary Tract Infection Justicifation of Admission Dx: Justifications for Admission: Justification of Admission Dx: N/A KASI DIAZ I DO Nov 07, 2019 19:53
[2019-11-07 20:11] LABS: BASO % 0 % (0-3); EOS # 0.3 x10^3/uL (0.0-0.7); EOS % 3 % (0-3); HEMATOCRIT 28.4 % (36.0-47.0); HEMOGLOBIN 9.4 g/dL (12.0-15.5); LYMPH % 8 % (24-48); MEAN CORPUSCULAR HEMOGLOBIN 29 pg (25-35); MEAN CORPUSCULAR HGB CONC 33 g/dL (31-37); MEAN CORPUSCULAR VOLUME 87 fL (79-100); MONO # 1.6 x10^3/uL (0.0-1.1); MONO % 12 % (0-9); NEUT # 10.5 x10^3/uL (1.8-7.7); NEUT % 78 % (31-73); PLATELET COUNT 326 x10^3/uL (140-400); RED BLOOD COUNT 3.24 x10^6/uL (3.50-5.40); WHITE BLOOD COUNT 13.5 x10^3/uL (4.0-11.0)
[2019-11-07 20:13] LABS: BILIRUBIN,URINE NEGATIVE (NEG); CLARITY,URINE CLEAR; COLOR,URINE YELLOW; NITRITE,URINE NEGATIVE (NEG); PH,URINE 5.5 (<5.0-8.0); PROTEIN,URINE NEGATIVE (NEG-TRACE); UROBILINOGEN,URINE 0.2 mg/dL (0.2 mg/dL)
[2019-11-07 20:18] LABS: SQUAMOUS EPITHELIAL CELL,UR MANY /LPF
[2019-11-07 20:20] LABS: BACTERIA,URINE MODERATE /HPF (0-FEW); RBC,URINE 0 /HPF (0-2)
[2019-11-07 20:22] LABS: CALCIUM 8.8 mg/dL (8.5-10.1); CREATININE 1.5 mg/dL (0.6-1.0)
[2019-11-07 20:31] LABS: ALBUMIN 2.5 g/dL (3.4-5.0); ALBUMIN/GLOBULIN RATIO 0.4 (1.0-1.7); TOTAL BILIRUBIN 0.4 mg/dL (0.2-1.0); TOTAL PROTEIN 8.1 g/dL (6.4-8.2)
--- NOTE | 2019-11-07 20:47 | RAD ---
Chest AP portable at 2000: Reason for examination: Short of breath. Comparison is made to previous study dated 02/09/2019. Pacemaker remains present over the left hemithorax with leads to the right atrium and right ventricle. Postop changes are seen in the sternum and mediastinum. The heart and mediastinum are otherwise unchanged. Lung heller show no acute congestion, infiltrates or pleural effusions and no pneumothorax is seen. No acute bony abnormalities are seen. IMPRESSION: No acute cardiopulmonary disease evident. Electronically signed by: Mimi Kee MD (11/07/2019 8:44 PM) TERRA
[2019-11-07] MEDS ORDERED: IV NORMAL SALINE 1000ML BAG 1,000 ML IV ONE (21:15)
[2019-11-07 21:43] VITALS: BP 126/75
--- NOTE | 2019-11-08 12:22 | EKG ---
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
--- NOTE | 2019-11-25 14:46 | EKG ---
[facility] [address] [place] [address] Test Date: 2019-11-07 Test Time: 19:41:56 Pat Name: MAJO CONNOLLY Department: Room: Gender: F [employer]: : 1945 Requested By: KASI DIAZ Order Number: [id number] Reading MD: Measurements Intervals [place] Rate: 81 P: -90 [place]: 132 QRS: -44 QRSD: 120 T: 17 QT: 372 QTc: 433 Interpretive Statements SINUS RHYTHM ABNORMAL LEFT AXIS DEVIATION R-S TRANSITION ZONE IN V LEADS DISPLACED TO THE RIGHT S1,S2,S3 PATTERN LEFT ANTERIOR FASCICULAR BLOCK INCOMPLETE RIGHT BUNDLE BRANCH BLOCK CONSIDER RIGHT VENTRICULAR HYPERTROPHY T ABNORMALITY IN ANTERIOR LEADS ABNORMAL ECG RI6.02 No previous ECG available for comparison MTDD
== END 2019-11-07 22:02 | disposition home or self-care (01) ==
LOC: ER 19:19
DX: N39.0 Urinary tract infection, site not specified (principal); E87.1 Hypo-osmolality and hyponatremia; R06.09 Other forms of dyspnea; R79.89 Other specified abnormal findings of blood chemistry; J45.909 Unspecified asthma, uncomplicated; E11.9 Type 2 diabetes mellitus without complications; K21.9 Gastro-esophageal reflux disease without esophagitis; E78.00 Pure hypercholesterolemia, unspecified; I11.9 Hypertensive heart disease without heart failure; Z87.891 Personal history of nicotine dependence; Z95.0 Presence of cardiac pacemaker
CPT/HCPCS: 36415; 71045; 80053; 81001; 83880; 84484; 85025; 87086; 93005; 96360; 99285; J7030

== ENCOUNTER → 2019-11-18 | Outpatient (CLI) | payer OTHER ==
[2019-11-07 21:43] VITALS: BP 126/75
--- NOTE | 2019-11-18 14:20 | RAD ---
Transabdominal pelvic ultrasound. INDICATION: Postmenopausal bleeding. COMPARISON: Pelvic ultrasound 06/25/2019. TECHNIQUE: Grayscale and color and spectral Doppler imaging of the pelvis was performed transabdominally using the distended urinary bladder as an acoustic window. FINDINGS: The uterus measures 14.3 x 11.2 x 7.4 cm. The endometrial stripe measures 1.5 cm. Neither the right nor the left ovary were identified by ultrasound. The uterus shows that the right uterine body a 2.8 x 2.8 x 2.3 cm oval mass compatible with a fibroid. The uterus also shows a 3.6 x 3.0 x 2.8 cm mass in the left fundal subserosal uterus compatible with a leiomyoma. Finally, submucosal 2.1 x 1.8 x 1.2 cm mass is seen, compatible with a submucosal fibroid IMPRESSION: Myomatous uterus as described. Thickening of the endometrial stripe up to 1.2 cm also noted. Consider correlation with tissue sampling if clinically appropriate. Electronically signed by: Christal Richey MD (11/18/2019 2:16 PM) [id number]
== END | disposition home or self-care (01) ==
LOC: US 11:56
PROVIDERS: ATTEND Obstetrics & Gynecology
DX: N80.0 Endometriosis of uterus (principal); N95.0 Postmenopausal bleeding; D25.9 Leiomyoma of uterus, unspecified; R93.89 Abnormal findings on diagnostic imaging of other specified body structures
CPT/HCPCS: 76856

== ENCOUNTER → 2019-12-26 | Outpatient (CLI) | payer OTHER ==
[~2019-12-26] MED LIST changes: +CARV25TA PO; +FLUT1BLS3 IH; +OLME40TA12 PO; +OMEP40CA45 PO; +SITA100T PO; +vitamin d PO
== END ==
LOC: SURGPAT 12:57
PROVIDERS: ATTEND Obstetrics & Gynecology
DX: Z01.812 Encounter for preprocedural laboratory examination (principal); Z20.828 Contact with and (suspected) exposure to other viral communicable diseases; N93.8 Other specified abnormal uterine and vaginal bleeding
CPT/HCPCS: U0003-CS

== ENCOUNTER 2019-12-31 06:04 | Day surgery (SDC) | payer OTHER ==
[2019-12-31] MEDS ORDERED: INSULIN LISPRO 100 UNIT/ML 3ML VIAL for OP,RR ONLY. SQ PRN (06:15)
[2019-12-31] MEDS ORDERED: LIDOCAINE 2% PF 5 ML VIAL. ONE (06:58)
[2019-12-31] MEDS ORDERED: PROPOFOL 10 MG/ML (20ML) VIAL. IV ONE (06:58)
[2019-12-31] MEDS ORDERED: fentaNYL PF VIAL 100 MCG/2 ML VIAL ONE (06:59)
[2019-12-31] MEDS ORDERED: INSULIN LISPRO 100 UNIT/ML 3ML VIAL for OP,RR ONLY. SQ ONE (07:00)
[2019-12-31] MEDS ORDERED: HYDROmorphone 2 MG/ML VIAL IV PRN (07:00)
[2019-12-31] MEDS ORDERED: PROCHLORPERAZINE 10 MG/2 ML VIAL. IV PRN (07:00)
[2019-12-31] MEDS ORDERED: MORPHINE SULFATE 2 MG/ML VIAL. IV PRN (07:00)
[2019-12-31] MEDS ORDERED: fentaNYL PF VIAL 100 MCG/2 ML VIAL IV PRN ×2 (07:00)
[2019-12-31] MEDS ORDERED: ONDANSETRON PF 4 MG/2 ML VIAL. IV PRN (07:00)
[2019-12-31] MEDS ORDERED: IV RINGERS,LACTATED 1000ML 1,000 ML IV SCH (07:00)
[2019-12-31] MEDS ORDERED: DEXAMETHASONE SOD PHOS 4 MG/ML VIAL ONE (08:02)
[2019-12-31] MEDS ORDERED: ONDANSETRON PF 4 MG/2 ML VIAL. ONE (08:02)
--- NOTE | 2019-12-31 09:16 | PDOC ---
BRIEF OPERATIVE NOTE Date: Dec 31, 2019 Pre-Op Diagnosis PMB and thickened endometrium on sonogram Post-Op Diagnosis same with submucosal uterine fibroids Procedure Performed hysteroscopic D&C with truclear and submucosal myomectomy Surgeon Dr. Annette Rivas Anesthesiologist Dr. Mace Anesthesia Type: General Blood Loss 20cc IV Fluid see anesthesia Urine Output straight cath prior Specimens Obtained uterine fibroids (endometrial currettage) Findings enlarged uterus sounded to 9-10cm normal left tubal ostia, right ostia blocked by fibroid, another right lower uterine fibroid and a fundal anterior fibroid lower right one was calcified, got some but could not get it all; got anterior fibroid and most of the right upper one blocking right tubal ostia (able to visualize it after removal) def 300 dense shaver blade used Complications none Operative Note [id number] had [place] dilators but did not have to dilate the 5/6 easily passed without manual dilation to admit the scope sounded to 9-10cm ANNETTE RIVAS MD Dec 31, 2019 09:16
[2019-12-31] MEDS ORDERED: MAG HYDROX/ALUMINUM HYD/SIMETH 30 ML ORAL.SUSP PO PRN (09:30)
[2019-12-31] MEDS ORDERED: CALCIUM CARBONATE 500 MG TAB.CHEW PO PRN (09:30)
[2019-12-31] MEDS ORDERED: 0.9 % SODIUM CHLORIDE 10 ML DISP.SYRIN. IV PRN (09:30)
[2019-12-31] MEDS ORDERED: SIMETHICONE 80 MG TAB.CHEW PO PRN (09:30)
[2019-12-31] MEDS ORDERED: HYDROcodone/APAP 5/325MG 1 TAB TABLET PO PRN (09:30)
[2019-12-31] MEDS ORDERED: NALOXONE 0.4 MG/ML VIAL. IV PRN (09:30)
[2019-12-31] MEDS ORDERED: diphenhydrAMINE HCL 25 MG CAPSULE PO PRN (09:30)
[2019-12-31] MEDS ORDERED: diphenhydrAMINE 50 MG/ML VIAL IV PRN (09:30)
[2019-12-31] MEDS ORDERED: IPRATRPIUM/ALBUTEROL 0.5/2.5MG 3 ML NEBU. ONE (09:46)
--- NOTE | 2019-12-31 09:56 | OP ---
DATE OF SURGERY: 12/31/2019 PREOPERATIVE DIAGNOSES: Postmenopausal bleeding with a thickened endometrial stripe seen on sonogram. POSTOPERATIVE DIAGNOSES: Postmenopausal bleeding with a thickened endometrial stripe seen on sonogram with submucosal uterine fibroids, at least 3 discrete fibroids seen and worked on. PROCEDURE: Hysteroscopic dilation and curretage with TruClear and submucosal myomectomy. SURGEON: Annette Rivas MD WAFER LINE WORKER: OR personnel. ANESTHESIA: General. ANESTHESIOLOGIST: Dr. Mace. ESTIMATED BLOOD LOSS: 20 mL. URINE OUTPUT: With a straight cath prior to procedure. SPECIMENS: Endometrial curettings, but more specifically submucosal fibroid. FINDINGS: Enlarged uterus, sounding to 9-10 cm. Initially, a normal left tubal ostia was seen. Initially, the right tubal ostia was blocked. There was a large uterine fibroid in front of the right tubal ostia. There was a lower right uterine fibroid and there was a smaller anterior fundal fibroid as well. So, the dense tissue blade was obtained once it was assured these were fibroids and unfortunately, it took a while, they had to change out the scopes, the dense tissue blade did not fit down the first scope they gave me. So then they went to the smaller soft tissue when it did neither. They had to go get another scope, re-prime it and put it in to get the blade to fit down the operating channel. Once we got that, the right one blocking the right tubal ostia was easily taken down under direct visualization as was the anterior fundal fibroid as well. At this point, the right and left tubal ostia were seen. The fundus of the uterus was clear and it was just as lower right-sided one. I worked on it for several minutes and I did get some samples of it, but it was solid almost calcified like a rock. So after working on it several minutes and going through 2-3 bags of fluid, I decided to go ahead and quit, but I did get some tissue from it and I did get rid of the other 2 fibroids, the upper right one blocking the ostia and the fundal anterior one. So, there is part of the right lower one left that was calcified and hardened. Once it was removed, the tenaculum was removed and made sure there was no active bleeding. The patient was then awakened from anesthesia and is being brought to recovery room in stable condition. Tenaculum was removed again with no active bleeding. Weighted speculum was removed and all counts were correct by OR personnel before awakening her. She is now awake from anesthesia and is rolling into the recovery room in stable condition. ANNETTE RIVAS MD DR: ELANA/latanya JOB#: [id number] / [id number]
[2019-12-31] MEDS ORDERED: IPRATRPIUM/ALBUTEROL 0.5/2.5MG 3 ML NEBU. NEB ONE (10:00)
[2019-12-31 10:30] VITALS: BP 150/71
--- NOTE | 2020-01-02 19:07 | PATHOLOGY ---
[facility] Accession Number: [id number] . 01 Material submitted: . uterus - UTERINE FIBROIDS . 01 Clinical history: . FIBROIDS, DUB . 02 Diagnosis: Segments of endometrial and myometrial tissue, uterine curettings: - Acute and chronic endometritis. - Segments of submucosal leiomyomas showing focal hyalinization and dystrophic calcification. (JPM:pit 01/02/2020) [facility] 01/02/2020 1225 Local . 02 Comment: There is no evidence of malignancy. (JPM:[facility] 01/02/2020) . 02 Electronically signed: . Prateek Kamara MD, Pathologist NPI- [id number] . 01 Gross description: . Received in formalin labeled "Mallika Barreto, uterine fibroids" is a 4 g, 2.9 x 2.5 x 1.3 cm aggregate of monroe white rubbery soft tissue fragments and red-brown clotted blood material. Research Recruiter tissue is submitted in cassettes A1-A2. ([facility] [place]; 01/01/2020) [facility] 01/01/2020 1146 Local . 02 Pathologist provided ICD-10: N71.1, D25.0 . 02 CPT . 555840 Specimen Comment: A courtesy copy of this report has been sent to [phone], [phone] Specimen Comment: [id number] Specimen Comment: Report sent to / DR GARCIA Performed at: 01 [facility] [address], [place] [id number] MD Simeon Fox MD Phone: [phone] Performed at: 02 [facility] [address] [place], [place] [id number] MD Prateek Kamara MD Phone: [phone]
== END 2019-12-31 11:00 | disposition home or self-care (01) ==
LOC: SURG 06:04
PROVIDERS: ATTEND Obstetrics & Gynecology
DX: N95.0 Postmenopausal bleeding (principal); D25.0 Submucous leiomyoma of uterus; N71.1 Chronic inflammatory disease of uterus; I11.0 Hypertensive heart disease with heart failure; I50.9 Heart failure, unspecified; E78.00 Pure hypercholesterolemia, unspecified; Z79.899 Other long term (current) drug therapy; Z87.891 Personal history of nicotine dependence; Z79.82 Long term (current) use of aspirin
CPT/HCPCS: 58558; 82962; 94640; A7015; J1100; J1815; J2405; J2704; J3010

== ENCOUNTER 2020-02-14 19:56 | Emergency (ER) | payer OTHER, MEDICARE ==
[~2020-02-14] VITALS: Ht 160 cm; Wt 61.0 kg
[2020-02-14 22:03] LABS: BASO % 1 % (0-3); EOS # 0.1 x10^3/uL (0.0-0.7); EOS % 2 % (0-3); HEMATOCRIT 38.4 % (36.0-47.0); HEMOGLOBIN 12.4 g/dL (12.0-15.5); LYMPH # 1.2 x10^3/uL (1.0-4.8); LYMPH % 22 % (24-48); MEAN CORPUSCULAR HEMOGLOBIN 28 pg (25-35); MEAN CORPUSCULAR HGB CONC 32 g/dL (31-37); MEAN CORPUSCULAR VOLUME 88 fL (79-100); MONO # 0.6 x10^3/uL (0.0-1.1); MONO % 11 % (0-9); NEUT # 3.7 x10^3/uL (1.8-7.7); NEUT % 65 % (31-73); PLATELET COUNT 182 x10^3/uL (140-400); RED BLOOD COUNT 4.38 x10^6/uL (3.50-5.40); RED CELL DISTRIBUTION WIDTH 20.2 % (11.5-14.5); WHITE BLOOD COUNT 5.7 x10^3/uL (4.0-11.0)
--- NOTE | 2020-02-14 22:09 | RAD ---
Exam: Chest one view INDICATION: Chest pain TECHNIQUE: Frontal view of the chest Comparisons: 11/07/2019 FINDINGS: Sternotomy wires are noted. There is a pacer with leads terminating the right atrium and ventricle. Heart is enlarged. Pulmonary vessels are within normal limits. The lung and pleural spaces are clear. IMPRESSION: No acute pulmonary process. Electronically signed by: Vipul Coleman MD (02/14/2020 10:07 PM) ISMAEL
[2020-02-14 22:35] LABS: CALCIUM 8.6 mg/dL (8.5-10.1); CREATININE 1.4 mg/dL (0.6-1.0); GFR 44.4; POTASSIUM 4.7 mmol/L (3.5-5.1)
[2020-02-14 23:03] LABS: DIRECT BILIRUBIN 0.1 mg/dL (0.0-0.2); TOTAL BILIRUBIN 0.4 mg/dL (0.2-1.0); TOTAL PROTEIN 6.6 g/dL (6.4-8.2)
[2020-02-14] MEDS ORDERED: [UNRECOGNIZED DRUG - CODE] MC (23:05)
--- NOTE | 2020-02-14 23:05 | ED.ADGEN ---
Past Medical History Past Medical History: Asthma, CHF, Diabetes-Type II, GERD, High Cholesterol, Heart Disease, Hypertension, Renal Disease Past Surgical History: Coronary Bypass Surgery, Pacemaker, Other Additional Past Surgical Histo: VALVE REPAIR x's 2, AICD Smoking Status: Never Smoker Alcohol Use: None Drug Use: None General Adult EDM: Chief Complaint: SHORTNESS OF BREATH HPI: HPI: Patient is 74-year-old female with past medical history of congestive heart failure who presents to the emergency room complaining of bilateral lower extremity swelling and some mild shortness of breath when she walks upstairs. She does not have any shortness of breath at rest. She is had the symptoms previously. She recently saw her proteomics scientist who placed her on Lasix. She has been taking her Lasix as prescribed and had an increase in her Lasix dosages this week but has not had improvement in her symptoms. She denies any respiratory distress. She does not have any URI symptoms. She has not had any kind of fever, abdominal pain, respiratory distress. Review of Systems: Review of Systems: Complete ROS is negative unless otherwise documented in HPI Current Medications: Current Medications Medications (Trade) Dose Ordered Sig/Jeremy Start Time Stop Time Status Last Admin Dose Admin Bumetanide (Bumex) 1 mg 1X ONCE 02/14/20 23:15 02/14/20 23:16 DC 02/14/20 23:12 1 MG Allergies: Allergies: Allergies Coded Allergies Type Severity Reaction Last Updated Verified No Known Drug Allergies 12/31/19 No Physical Exam: PE: General: Awake, alert, NAD. Well Nourished, well hydrated. Cooperative HEENT: Atraumatic, EOMI, PERRL, airway patent, moist oral mucosa Neck: Supple, trachea midline Respiratory: CTA bilaterally, normal effort, no wheezing/crackles CV: RRR, no murmur, cap refill <2, 3+ pitting edema bilateral ankles GI: Soft, nondistended, nontender, no masses MSK: No obvious deformities Skin: Warm, dry, intact Neuro: A&O x3, speech NL, sensory and motor grossly intact, no focal deficits Psych: Normal affect, normal mood, not suicidal or homicidal Current Patient Data: Labs: Laboratory Tests Test 02/14/20 21:54 02/14/20 22:16 White Blood Count 5.7 x10^3/uL (4.0-11.0) Red Blood Count 4.38 x10^6/uL (3.50-5.40) Hemoglobin 12.4 g/dL (12.0-15.5) Hematocrit 38.4 % (36.0-47.0) Mean Corpuscular Volume 88 fL (79-100) Mean Corpuscular Hemoglobin 28 pg (25-35) Mean Corpuscular Hemoglobin Concent 32 g/dL (31-37) Red Cell Distribution Width 20.2 % (11.5-14.5) H Platelet Count 182 x10^3/uL (140-400) Neutrophils (%) (Auto) 65 % (31-73) Lymphocytes (%) (Auto) 22 % (24-48) L Monocytes (%) (Auto) 11 % (0-9) H Eosinophils (%) (Auto) 2 % (0-3) Basophils (%) (Auto) 1 % (0-3) Neutrophils # (Auto) 3.7 x10^3/uL (1.8-7.7) Lymphocytes # (Auto) 1.2 x10^3/uL (1.0-4.8) Monocytes # (Auto) 0.6 x10^3/uL (0.0-1.1) Eosinophils # (Auto) 0.1 x10^3/uL (0.0-0.7) Basophils # (Auto) 0.0 x10^3/uL (0.0-0.2) Platelet Estimate Adequate (ADEQUATE) Poikilocytosis Slight Anisocytosis Slight Sodium Level 139 mmol/L (136-145) Potassium Level 4.7 mmol/L (3.5-5.1) Chloride Level 104 mmol/L (98-107) Carbon Dioxide Level 28 mmol/L (21-32) Anion Gap 7 (6-14) Blood Urea Nitrogen 27 mg/dL (7-20) H Creatinine 1.4 mg/dL (0.6-1.0) H Estimated GFR (Cockcroft-Gault) 44.4 Glucose Level 113 mg/dL (70-99) H Calcium Level 8.6 mg/dL (8.5-10.1) Total Bilirubin 0.4 mg/dL (0.2-1.0) Direct Bilirubin 0.1 mg/dL (0.0-0.2) Aspartate Amino Transferase (AST) 31 U/L (15-37) Alanine Aminotransferase (ALT) 25 U/L (14-59) Alkaline Phosphatase 75 U/L (46-116) Troponin I Quantitative < 0.017 ng/mL (0.000-0.055) IC-Cjf-H-Type Natriuretic Peptide 10157 pg/mL (0-449) H Total Protein 6.6 g/dL (6.4-8.2) Albumin 3.0 g/dL (3.4-5.0) L Laboratory Tests 02/14/20 21:54 Laboratory Tests 02/14/20 22:16 Vital Signs: Vital Signs Date Time Temp Pulse Resp B/P (MAP) Pulse Ox O2 Delivery O2 Flow Rate FiO2 02/14/20 20:30 98.3 83 16 141/86 (104) 99 Room Air 98.3 EKG: EKG: [] Heart Score: Risk Factors: Risk Factors: DM, Current or recent (<one month) smoker, HTN, HLP, family history of CAD, obesity. Risk Scores: Score 0 - 3: 2.5% MACE over next 6 weeks - Discharge Home Score 4 - 6: 20.3% MACE over next 6 weeks - Admit for Clinical Observation Score 7 - 10: 72.7% MACE over next 6 weeks - Early Invasive Strategies Radiology/Procedures: Radiology/Procedures: [] Course & Med Decision Making: Course & Med Decision Making Pertinent Labs and Imaging studies reviewed. (See chart for details) Patient 74-year-old female presents the emergency room with dyspnea on exertion and bilateral lower extremity. This is likely secondary to current chest of heart failure. Chest x-ray appears normal. She is not respiratory distress. She is oxygenating well. I did offer her admission but she would like to try treatment at home. Give her a single dose of Bumex here in the emergency room. She will call her proteomics scientist on Sunday for further recommendations. I gave her a prescription for compression stockings. She will return if she develops severe shortness of breath. Patient's test results and vitals while in the ED were fully reviewed and discussed with the patient. Patient is stable and at this time does not need admission to the hospital. We have discussed strict return precautions and the importance of following up with their Primary Care Physician. Patient stated understanding and was given an opportunity to ask any questions. Patient is in agreement with plan. Dragon Disclaimer: Dragon Disclaimer: This electronic medical record was generated, in whole or in part, using a voice recognition dictation system. Departure Departure Impression: Primary Impression: Congestive heart failure Disposition: 01 DC HOME SELF CARE/HOMELESS Condition: STABLE Referrals: SHAHAB GARCIA MD (PCP) Patient Instructions: Heart Failure, Peripheral Edema Scripts Compression Socks, Large (Lifestylecomfort Socks) 1 Each Each EACH , #1 Prov: CORKY IVERSON MD 02/14/20 CORKY IVERSON MD Feb 14, 2020 23:05
[2020-02-14] MEDS ORDERED: BUMETANIDE 1 MG/4 ML VIAL. IV ONE (23:15)
[2020-02-14 23:32] VITALS: BP 146/73
[2020-02-14 23:33] LABS: ANISOCYTOSIS SLIGHT; PLT ESTIMATE ADEQUATE (ADEQUATE); POIKILOCYTOSIS SLIGHT
--- NOTE | 2020-02-17 10:08 | EKG ---
[facility] [address] [place] [address] Test Date: 2020-02-14 Test Time: 21:36:00 Pat Name: MAJO CONNOLLY Department: Room: Gender: F Remarketing Manager: : 1945 Requested By: CORKY IVERSON Order Number: [id number] Reading MD: Measurements Intervals [place] Rate: 80 P: MA: QRS: -65 QRSD: 120 T: 161 QT: 442 QTc: 514 Interpretive Statements IRREGULAR RHYTHM, NO P-WAVE FOUND ABNORMAL LEFT AXIS DEVIATION R-S TRANSITION ZONE IN V LEADS DISPLACED TO THE RIGHT LEFT ANTERIOR FASCICULAR BLOCK INCOMPLETE RIGHT BUNDLE BRANCH BLOCK LVH WITH REPOLARIZATION ABNORMALITY ABNORMAL ECG RI6.02 No previous ECG available for comparison
== END 2020-02-14 23:32 | disposition home or self-care (01) ==
LOC: ER 19:56
DX: I11.0 Hypertensive heart disease with heart failure (principal); I50.9 Heart failure, unspecified; R06.02 Shortness of breath; R60.0 Localized edema; J45.909 Unspecified asthma, uncomplicated; E11.9 Type 2 diabetes mellitus without complications; K21.9 Gastro-esophageal reflux disease without esophagitis; E78.00 Pure hypercholesterolemia, unspecified; Z95.0 Presence of cardiac pacemaker; Z98.890 Other specified postprocedural states
CPT/HCPCS: 36415; 71045; 80048; 80076; 83880; 84484; 85025; 93005; 96374; 99285; J3490

== ENCOUNTER → 2020-06-04 | Outpatient (CLI) | payer OTHER, MEDICARE ==
[2020-04-20 11:00] VITALS: BP 128/61
[~2020-06-04] MED LIST changes: +APIX5TAB PO; +BUDE10.7 IH; +BUME1TAB3 PO; +CARV25TA2 PO; +POTA10TA12 PO; +[UNRECOGNIZED DRUG - CODE] MC
--- NOTE | 2020-06-04 13:32 | RAD ---
XR CHEST 2V History: Reason: PE / Spl. Instructions: / History: Shortness breath Comparison: April 15, 2020 Findings: Hyperinflation with epididymis changes. No pleural effusion. Enlarged heart size, unchanged. Left-foreign ed pacemaker/ICD. Prior mid sternotomy and valve replacement. Impression: 1. No acute cardiopulmonary process. Electronically signed by: Thierno Barriga DO (06/04/2020 1:30 PM) [id number]
--- NOTE | 2020-06-04 13:38 | RAD ---
NM LUNG PERFUSION SCAN History:Reason: / Spl. Instructions: / History: Shortness of breath. Comparison: Chest x-ray and June 04, 2020. VQ scan April 15, 2020 Findings: Ventilation perfusion examination was performed. Ventilation images were acquired after the patient inhaled 15 mCi of xenon-133. Perfusion images were acquired after the patient was injected w ith 5.5 mCi of technetium 99m MAA. Normal ventilation images. Photopenic region within the left lung on perfusion imaging is related to pacer device. Large perfusion defect within the left posterior lower lobe on LPO view, unchanged comp ared to prior. No additional perfusion defect identified. Enlarged cardiac size. Impression: 1. Intermediate probability for pulmonary embolic disease. 2. Large perfusion defect within the left posterior lower lobe, unchanged compared to prior. Electronically signed by: Thierno Barriga DO (06/04/2020 1:35 PM) [id number]
== END | disposition home or self-care (01) ==
LOC: NM 09:56
PROVIDERS: ATTEND Internal Medicine Pulmonary Disease
DX: I26.99 Other pulmonary embolism without acute cor pulmonale (principal)
CPT/HCPCS: 71046; 78582; A9540; A9558; 96374

== ENCOUNTER → 2020-07-28 | Outpatient (CLI) | payer OTHER, MEDICARE ==
[2020-04-20 11:00] VITALS: BP 128/61
--- NOTE | 2020-07-28 12:54 | RAD ---
EXAM: Renal sonogram. HISTORY: Chronic renal disease. TECHNIQUE: Sonographic imaging the kidneys and bladder was performed. COMPARISON: 06/25/2019. FINDINGS: The right kidney measures 8.3 cm mxtn-ra-gula and the left kidney measures 9.5 cm pole-to-p ole. There are simple appearing renal cysts, the largest of which is seen on the left measuring 2.5 c m. The bladder is not fully distended. No bladder lesion is seen. There is no hydronephrosis. IMPRESSION: 1. Small simple appearing bilateral renal cysts. Follow-up is not routinely performed for simple cyst s. 2. Mild right renal atrophy. Electronically signed by: Marguerite Perez MD (07/28/2020 12:52 PM) [id number]
== END ==
LOC: US 10:39
PROVIDERS: ATTEND Internal Medicine Nephrology
DX: N18.30 Chronic kidney disease, stage 3 unspecified (principal); N28.1 Cyst of kidney, acquired; N26.1 Atrophy of kidney (terminal)
CPT/HCPCS: 76770

== ENCOUNTER → 2020-11-24 | Outpatient (CLI) | payer OTHER ==
[2020-04-20 11:00] VITALS: BP 128/61
[~2020-11-24] MED LIST changes: -OMEP40CA45 PO; +OMEP40CA7 PO
--- NOTE | 2020-11-24 10:55 | RAD ---
XR CHEST 2V History: Reason: Shortness breath/ Spl. Instructions: / History: Comparison: June 04, 2020 Findings: Enlarged cardiac size, unchanged. Stable left-sided pacemaker/ICD. No pneumothorax. No pleural effusi on. No consolidation. Impression: 1. No acute cardiopulmonary process. Electronically signed by: Thierno Barriga DO (11/24/2020 10:53 AM) [id number]
--- NOTE | 2020-11-24 16:15 | RAD ---
NM LUNG PERFUSION SCAN History:Reason: history of PE 04/2020 / Spl. Instructions: / History: Comparison: June 04, 2020 and April 15, 2020 Findings: Ventilation perfusion examination was performed. Ventilation images were acquired after the patient inhaled 18.8 mCi of ojsir110. Perfusion images were acquired after the patient was injected with 5.5 mCi of technetium 99m MAA. Photopenic area overlying the left lung on ventilation and perfusion imaging related to pacemaker. Ot herwise, normal ventilation images. Heterogeneous perfusion. Cardiomegaly. No mismatched perfusion de fect identified. Impression: 1. Low probability for pulmonary embolic disease. Electronically signed by: Thierno Barriga DO (11/24/2020 4:12 PM) [id number]
== END ==
LOC: NM 10:27
PROVIDERS: ATTEND Internal Medicine Pulmonary Disease
DX: I26.99 Other pulmonary embolism without acute cor pulmonale (principal); I51.7 Cardiomegaly
CPT/HCPCS: 71046; 78582; A9540; A9558; 96374

== ENCOUNTER → 2020-12-10 | Outpatient (CLI) | payer OTHER ==
[2020-04-20 11:00] VITALS: BP 128/61
[~2020-12-10] MED LIST changes: +REGADENOSON 0.4 MG/5 ML DISP.SYRIN. IV ONE
--- NOTE | 2020-12-10 14:16 | CARD ---
MR#: [id number] Date of Study: 12/10/2020 Ordering Physician: KELLY HENNING, Referring Physician: Roberto RAMIREZ: Ayaan Pate [facility] APPROVED REPORT EXAM: Two-dimensional and M-mode echocardiogram with Doppler and color Doppler. Other Information Quality : AverageHR: 83bpm Rhythm : NSR INDICATION Cardiac Disease: CAD Surgery/Intervention ICD/Pacemaker: CABG: RISK FACTORS Hypertension Hyperlipidemia Diabetes 2D DIMENSIONS Left Atrium(2D)3.6 (1.6-4.0cm)IVSd0.9 (0.7-1.1cm) Aortic Root(2D)2.7 (2.0-3.7cm)LVDd5.1 (3.9-5.9cm) LVOT Diameter1.9 (1.8-2.4cm)PWd0.9 (0.7-1.1cm) LVDs4.6 (2.5-4.0cm)FS (%) 10.2 % SV28.1 mlLVEF(%)22.3 (>50%) Aortic Valve AoV Peak Audi.106.3cm/sAoV VTI21.5cm AO Peak GR.4.5mmHgLVOT Peak Audi.59.6cm/s LVOT VTI 12.45cmAO Mean GR.3mmHg RICARDO (VMAX)1.05bc1MAK (VTI)1.61cm2 Mitral Valve MV E Ssmuthnn275.7cm/sMV DECEL [id number] MV A Tfaevzml215.6cm/sMV KSZ19fv E/A Ratio1.2MVA (PHT)3.94cm2 TDI E/Lateral E'25.1E/Medial E'30.6 Pulmonary Valve PV Peak Bicytnzu04.4cm/sPV Peak Grad.2mmHg Tricuspid Valve TR P. Kcaeuupw174rv/sTR Peak Gr.35mmHg Pulmonary Vein S1 Xizwavzz20.0cm/sD2 Vnwarkmd58.2cm/s LEFT VENTRICLE The left ventricle is normal size. There is normal left ventricular wall thickness. The systolic func tion is severely impaired. EF 25% There is global hypokinesis of the left ventricle. Tissue Doppler i maging reveals moderate left ventricular diastolic dysfunction. No left ventricle thrombus noted on t his study. There is no ventricular septal defect visualized. There is no left ventricular aneurysm. T here is no mass noted in the left ventricle. RIGHT VENTRICLE The right ventricle is normal size. There is normal right ventricular wall thickness. RV Systolic fun ction is borderline reduced. There is a pacing/ICD lead noted in the RA/RV. ATRIA The left atrium is moderately dilated. The right atrium size is normal. The interatrial septum is int act with no evidence for an atrial septal defect or patent foramen ovale as noted on 2-D or Doppler i maging. AORTIC VALVE The aortic valve is normal in structure and function. Doppler and Color Flow revealed trace aortic re gurgitation. There is no significant aortic valvular stenosis. There is no aortic valvular vegetation . MITRAL VALVE Probable prior mitral annuloplasty with moderate calcification noted. There is no evidence of mitral valve prolapse. There is no mitral valve stenosis. Doppler and Color-flow revealed mild mitral regurg itation. TRICUSPID VALVE The tricuspid valve leaflets are thickened , but open well. Doppler and Color Flow revealed mild tric uspid regurgitation. The PA pressure was estimated at 48 mmHg. There is no tricuspid valve prolapse o r vegetation. There is no tricuspid valve stenosis. PULMONIC VALVE Doppler and Color Flow revealed no pulmonic valvular regurgitation. There is no pulmonic valvular dede nosis. GREAT VESSELS The aortic root is normal in size. The ascending aorta is normal in size. The IVC is normal in size a nd collapses >50% with inspiration. PERICARDIAL EFFUSION There is no pleural effusion. There is no evidence of significant pericardial effusion. Critical Notification Critical Value: No <Conclusion> The systolic function is severely impaired. EF 25% There is global hypokinesis of the left ventricle. Probable prior mitral annuloplasty with moderate calcification noted. Doppler and Color Flow revealed mild tricuspid regurgitation. The PA pressure was estimated at 48 mmH g. There is a pacing/ICD lead noted in the RA/RV. Signed by : Rodolfo Kaur, Electronically Approved : 12/10/2020 14:16:09
--- NOTE | 2020-12-10 17:08 | RAD ---
MR#: [id number] Date of Study: 12/10/2020 Ordering Physician: KELLY HENNING, Referring Physician: PATITO RAMIREZ Tech: MARIA T Love, ARRT (R) (N) APPROVED REPORT Test Type: Pharmacological Stress Nurse/Tech: Obdulia Johns R.N. Test Indications: cad Cardiac History: asthma, CABG x 3 2008, htn, pacemaker, dm Medications: See Electronic Medical Record Medical History: See Electronic Medical Record Resting ECG: paced Resting Heart Rate: 82 bpm Resting Blood Pressure: 137/69mmHg Pretest Chest Pain: No chest pain Nurse/Tech Notes lungs cta, heart tones regular Consent: The procedure was explained to the patient in lay terms. Informed consent was witnessed. Eusebio eout was entered into [employer] [employer]. History and Stress Test performed by RT Ashley (Rosanna) (N) Pharm. Details Pharmacologic stress testing was performed using 0.4mg per 5ml of regadenoson given intravenously ove r 7-10 seconds. Stress Symptoms No chest pain or symptoms. POST EXERCISE Reason for Termination: Infusion complete Target HR: No Max HR: 112 bpm Max Blood Pressure: 137/75mmHg Chest Pain: No. Arrhythmia: No. occasional non paced beat ST Change: No. INTERPRETATION Stress EKG Conclusion: Nondiagnostic EKG due to pacing artifact. Imaging Protocol IMAGE PROTOCOL: Rest Tc-99m/stress Tc-99m 1 day Rest: Stress: Viability: Radiopharm.Tc99m VivnuabruVo83w Sestamibi Dose10.4mCi 31.9mCi Img Date 12/10/2020 12/10/2020 Inj-Img [id number]. 60min. Rest Admin Site:IV - Left AntecubitalAdministrator:RT Ashley (Rosanna)(N) Stress Admin Site: IV - Left AntecubitalAdministrator: RT Abeba Ramirez)(N) STRESS DATA End Diast. Vol.111.0mlAv. Heart Rate82.0bpm End Syst. Vol.64.0mlCO Index BSA0.0L/min Myocardial Bgel250.0gEject. Tgngzogy03.0% Stress Rates Pk. Fill Rate2.59EDV/secLVtime Pk. Fill 236.22msec Pk. Empty Rate2.98ESV/secLVtime Pk. Kirux238.55msec 1/3 Pk. Fill0.46EDV/sec Stress Scores Regional WT2.00Summed WT41.00 Regional WM0.00Summed WM15.00 The rest and stress images show normal perfusion, normal contraction and thickening. LV Perf. Quant 17 Seg. SSS7.00 17 Seg. SRS1.00 17 Seg. SDS6.00 Stress Defect Extent (% LAD)5.60Rest Defect Extent (% LAD)0.00Rev. Defect Extent (% LAD)0.00 Stress Defect Extent (% LCX) 28.80Rest Defect Extent (% LCX)0.00Rev. Defect Extent (% LCX)2.50 Stress Defect Extent (% RCA)0.00Rest Defect Extent (% RCA)0.00Rev. Defect Extent (% RCA)0.00 Stress Defect Extent (% TITUS)10.90Rest Defect Extent (% TITUS)0.00Rev. Defect Extent (% TITUS)0.40 Other Information Quality:Fair Risk Assessment: Moderate risk study Conclusion 1. Baseline EKG abnormalities with nonspecific diffuse T wave changes likely related to chronic pacin g artifact. Nondiagnostic EKG at stress 2. Normal perfusion at stress and rest. 3. Moderate LV dysfunction with ejection fraction of 42% 4. Moderate risk study Signed by : Rodolfo Kaur, Electronically Approved : 12/10/2020 17:07:35
== END ==
LOC: NM 08:57
PROVIDERS: ATTEND Internal Medicine Cardiovascular Disease
DX: I08.1 Rheumatic disorders of both mitral and tricuspid valves (principal); R94.31 Abnormal electrocardiogram [ECG] [EKG]; I25.10 Atherosclerotic heart disease of native coronary artery without angina pectoris
CPT/HCPCS: 78452; 93017; 93306; A9500; J2785

== ENCOUNTER 2021-01-18 08:58 | Outpatient (CLI) | payer OTHER ==
[2021-01-18] VITALS (12 sets, daily range): BP systolic 96–128; BP diastolic 56–71
[~2021-01-18] VITALS: Ht 157.5 cm; Wt 60.0 kg
[~2021-01-18 08:58] MED LIST changes: +IODIXANOL 320 MG/ML 100 ML VIAL. ONE; +LIDOCAINE 1% Multi-Dose 20 ML VIAL. ONE; -REGADENOSON 0.4 MG/5 ML DISP.SYRIN. IV ONE
[2021-01-18] MEDS ORDERED: CHOL500050 PO (09:16)
[2021-01-18] MEDS ORDERED: OMEP20TA8 PO (09:16)
[2021-01-18] MEDS ORDERED: CARV25TA PO (09:20)
[2021-01-18 09:54] LABS: HEMATOCRIT 36.9 % (36.0-47.0); RED BLOOD COUNT 4.13 x10^6/uL (3.50-5.40); RED CELL DISTRIBUTION WIDTH 15.5 % (11.5-14.5); WHITE BLOOD COUNT 5.9 x10^3/uL (4.0-11.0)
[2021-01-18 10:22] LABS: CREATININE 1.6 mg/dL (0.6-1.0); GFR 37.9; POTASSIUM 4.3 mmol/L (3.5-5.1)
[2021-01-18] MEDS ORDERED: fentaNYL PF VIAL 100 MCG/2 ML VIAL ONE (10:41)
[2021-01-18] MEDS ORDERED: MIDAZOLAM HCL/PF 2 MG/2 ML VIAL. ONE (10:41)
[2021-01-18] MEDS ORDERED: MIDAZOLAM HCL/PF 2 MG/2 ML VIAL. IV ONE (11:30)
[2021-01-18] MEDS ORDERED: fentaNYL PF VIAL 100 MCG/2 ML VIAL IV ONE (11:30)
[2021-01-18] MEDS ORDERED: IODIXANOL 320 MG/ML 100 ML VIAL. IART ONE (11:30)
[2021-01-18] MEDS ORDERED: LIDOCAINE 1% Multi-Dose 20 ML VIAL. INJ ONE (11:30)
[2021-01-18] MEDS ORDERED: IODIXANOL 320 MG/ML 100 ML VIAL. ONE (11:32)
--- NOTE | 2021-01-18 12:43 | CARD ---
MR#: [id number] Date of Study: 01/18/2021 Ordering Physician: KELLY GARZA, Referring Physician: KELLY GARZA Tech: RT Ne(R) APPROVED REPORT Technologist: RT Ne(R) Nurse: Fani oTrres RN Procedure(s) performed: Left heart catheterization, selective coronary angiography and selective jolanta ography of the bypass grafts FLUORO TIME: 6.8 MIN DOSE: 24.8 Gycm2 Contrast: 83ml Mod Sedation: 37 minutes INDICATION The indication(s) include : 75-year-old female with known history of coronary artery disease s/p jayden nary artery bypass surgery presented with cardiomyopathy and diminished LV systolic function compared to prior evaluations. She presented today for cardiac catheterization to rule out ischemic etiology for her cardiomyopathy.. [facility] Clinical Frailty Scale [facility] Clinical Frailty Scale: Moderately Frail Heart Failure Heart Failure: Yes If Yes, Newly Diagnosed: No If Yes, HF Type: Systolic If Yes, NYHA Class: Class II CASE TECHNIQUE IV conscious sedation was used throughout procedure with appropriate monitoring and was performed in the presence of a registered nurse who was an independent trained observer other than the physician p erforming the procedure. During this case, Fluoroscopy and low osmolar contrast were used for imaging . Specimen(s) Removed: No Estimated Blood loss: 15 cc's. PROCEDURE NARRATIVE Patient was brought to the cardiac Senior Ui Ux Developer and her right groin was prepped and draped in the usual f ashion. 14 cc of 2% lidocaine was infiltrated into the skin and subcutaneous tissues for local anest hesia. Vascular ultrasound guidance was used to obtain arterial access and a 6 Mosotho sheath was ins erted in her right common femoral artery. 6 Mosotho JL4 6 Mosotho JR4 catheters were used to perform s elective angiography of the left and right coronary arteries. The 6 [place] JR4 catheter was used to perform selective angiography of the left internal mammary artery. 6 [place]otho LCB catheter was used to perform selective angiography of the saphenous vein graft to the left anterior descending artery and also the saphenous vein graft to the diagonal branch. LVEDP and transaortic gradients were measured . Patient tolerated the procedure well. Hemostasis was achieved using Angio-Seal. There were no im mediate complications. FINDINGS 1. Hemodynamics: Left ventricular end-diastolic pressure 8 mmHg. No pullback gradient across aortic valve. 2. Coronary and bypass graft angiography: a. The left main coronary artery arose from the left sinus of Valsalva, gave rise to the left anteri or descending and left circumflex arteries and showed 20% stenosis in the distal segment. b. The left anterior descending artery showed 70% stenosis in the proximal segment and 100% chronic total occlusion in the midsegment after the takeoff of a diagonal branch that showed 70% stenosis in the proximal segment. c. The left circumflex artery was a large and dominant vessel that did not show any significant sten osis. d. The right coronary artery was a nondominant vessel arising from the right sinus of Valsalva that did not show any significant stenosis. e. The saphenous vein graft to the left anterior descending artery was widely patent. Distal to the anastomosis, the [place] left anterior descending artery did not show any significant stenosis. f. The saphenous vein graft to the diagonal branch of left anterior descending artery was widely pat ent. g. The left internal mammary artery was not grafted. Conclusion Coronary artery disease s/p coronary artery bypass surgery with patent SVG to LAD and patent SVG to d iagonal branch. The dominant left circumflex artery and nondominant RCA were not grafted and did not show any significant stenosis. Recommendations Optimization of medical therapy for ischemic cardiomyopathy. Cardiovascular risk factor modification. Signed by : Kelly Garza, Electronically Approved : 01/18/2021 12:42:46
--- NOTE | 2021-01-18 14:51 | NUR ---
PIV removed. VS stable. No bleeding at groin site, no sign of hematoma. Instructions on site care, sedation provided-- patient and verbalized understanding. All belongings taken w/ patient at time of d/c. Patient's driving home.
== END 2021-01-18 15:05 | disposition home or self-care (01) ==
LOC: CCL 08:58
PROVIDERS: ATTEND Internal Medicine Cardiovascular Disease
DX: I25.10 Atherosclerotic heart disease of native coronary artery without angina pectoris (principal); I25.5 Ischemic cardiomyopathy; I11.0 Hypertensive heart disease with heart failure; I50.9 Heart failure, unspecified; J44.9 Chronic obstructive pulmonary disease, unspecified; K21.9 Gastro-esophageal reflux disease without esophagitis; E11.9 Type 2 diabetes mellitus without complications; M10.9 Gout, unspecified; Z87.440 Personal history of urinary (tract) infections; Z98.51 Tubal ligation status; Z98.890 Other specified postprocedural states; Z87.891 Personal history of nicotine dependence; Z79.82 Long term (current) use of aspirin; Z79.899 Other long term (current) drug therapy
CPT/HCPCS: 36415; 76937; 80048; 85027; 93459; 99152; 99153; C1760; C1769; C1894; J1644; J2250; J3010; J3490; Q9967; G0269

== ENCOUNTER 2021-04-13 15:18 | Inpatient (IN) | payer MEDICARE, OTHER ==
[~2021-04-13] VITALS: Ht 157.5 cm; Wt 63.0 kg
[~2021-04-13 15:18] MED LIST changes: +CHOL500050 PO; -IODIXANOL 320 MG/ML 100 ML VIAL. ONE; -LIDOCAINE 1% Multi-Dose 20 ML VIAL. ONE; +OMEP20TA8 PO
[2021-04-13] MEDS ORDERED: IPRATRPIUM/ALBUTEROL 0.5/2.5MG 3 ML NEBU. NEB ONE (15:45)
[2021-04-13 15:46] LABS: BASO # 0.1 x10^3/uL (0.0-0.2); BASO % 1 % (0-3); EOS # 1.3 x10^3/uL (0.0-0.7); EOS % 18 % (0-3); HEMATOCRIT 38.1 % (36.0-47.0); HEMOGLOBIN 12.3 g/dL (12.0-15.5); LYMPH % 13 % (24-48); MEAN CORPUSCULAR HEMOGLOBIN 28 pg (25-35); MEAN CORPUSCULAR HGB CONC 32 g/dL (31-37); MEAN CORPUSCULAR VOLUME 88 fL (79-100); MONO # 0.7 x10^3/uL (0.0-1.1); MONO % 9 % (0-9); NEUT # 4.5 x10^3/uL (1.8-7.7); NEUT % 59 % (31-73); PLATELET COUNT 177 x10^3/uL (140-400); RED BLOOD COUNT 4.36 x10^6/uL (3.50-5.40); RED CELL DISTRIBUTION WIDTH 17.4 % (11.5-14.5); WHITE BLOOD COUNT 7.6 x10^3/uL (4.0-11.0)
--- NOTE | 2021-04-13 15:46 | RAD ---
EXAM: Chest, single view. HISTORY: Shortness of air. COMPARISON: 11/24/2020 FINDINGS: A frontal view of the chest obtained. There is no infiltrate, pleural effusion or pneumotho rax. There is a stable prominent cardiac silhouette and evidence of prior median sternotomy and valve surgery. There is a cardiac pacemaker defibrillator in expected position. IMPRESSION: Stable enlarged chronic silhouette and postoperative changes. Electronically signed by: Marguerite Perez MD (04/13/2021 3:43 PM) [id number]
[2021-04-13 16:07] LABS: CALCIUM 8.5 mg/dL (8.5-10.1); CREATININE 2.2 mg/dL (0.6-1.0); GFR 26.2; POTASSIUM 5.5 mmol/L (3.5-5.1)
[2021-04-13 16:13] LABS: ALBUMIN 3.1 g/dL (3.4-5.0); ALBUMIN/GLOBULIN RATIO 0.8 (1.0-1.7); MAGNESIUM 2.3 mg/dL (1.8-2.4); TOTAL BILIRUBIN 0.4 mg/dL (0.2-1.0)
--- NOTE | 2021-04-13 16:50 | PHYS DOC ---
Past Medical History Past Medical History: Asthma, CHF, Diabetes-Type II, GERD, High Cholesterol, Heart Disease, Hypertension, Renal Disease Past Surgical History: Coronary Bypass Surgery, Hysterectomy, Pacemaker, Other Additional Past Surgical Histo: VALVE REPAIR x's 2, AICD Smoking Status: Former Smoker Alcohol Use: None Drug Use: None General Adult EDM: Chief Complaint: SHORTNESS OF BREATH HPI: HPI: Patient is a 76 year old female who present to ER for evaluation of trouble breathing. Symptoms have been going on since last Sunday. Patient says she has history of asthma, CHF. Patient is on water pill. Patient says she has been gaining weight. Patient denies any cough or fever. Patient says she also has history of asthma, patient says she has been wheezing. Review of Systems: Review of Systems: Constitutional: Denies fever or chills. [] Eyes: Denies change in visual acuity. [] HENT: Denies nasal congestion or sore throat. [] Respiratory: Denies any cough, positive for shortness of air. Cardiovascular: Denies chest pain , positive for pedal edema GI: Denies abdominal pain, nausea, vomiting, bloody stools or diarrhea. [] : Denies dysuria. [] Musculoskeletal: Denies back pain or joint pain. [] Integument: Denies rash. [] Neurologic: Denies headache, focal weakness or sensory changes. [] Endocrine: Denies polyuria or polydipsia. [] Lymphatic: Denies swollen glands. [] Psychiatric: Denies depression or anxiety. [] Heart Score: C/O Chest Pain: N/A Risk Factors: Risk Factors: DM, Current or recent (<one month) smoker, HTN, HLP, family history of CAD, obesity. Risk Scores: Score 0 - 3: 2.5% MACE over next 6 weeks - Discharge Home Score 4 - 6: 20.3% MACE over next 6 weeks - Admit for Clinical Observation Score 7 - 10: 72.7% MACE over next 6 weeks - Early Invasive Strategies Current Medications: Current Medications Medications (Trade) Dose Ordered Sig/Jeremy Start Time Stop Time Status Last Admin Dose Admin Albuterol/ Ipratropium (Duoneb) 3 ml 1X ONCE 04/13/21 15:45 04/13/21 15:46 DC 04/13/21 15:54 3 ML Allergies: Allergies: Allergies Coded Allergies Type Severity Reaction Last Updated Verified No Known Drug Allergies 12/31/19 No Physical Exam: PE: Constitutional: Well developed, well nourished, no acute distress, non-toxic appearance. [] HENT: Normocephalic, atraumatic, bilateral external ears normal, oropharynx moist, no oral exudates, nose normal. [] Eyes: PERRLA, EOMI, conjunctiva normal, no discharge. [] Neck: Normal range of motion, no tenderness, supple, no stridor. [] Cardiovascular:Heart rate regular rhythm, no murmur [] Lungs & Thorax: Bilateral breath sounds with expiratory wheezing to auscultate, tachypneic. Abdomen: Bowel sounds normal, soft, no tenderness, no masses, no pulsatile masses. [] Skin: Warm, dry, no erythema, no rash. [] Back: No tenderness, no CVA tenderness. [] Extremities: No tenderness, no cyanosis, no clubbing, ROM intact, pitting pedal edema 2+ Neurologic: Alert and oriented X 3, normal motor function, normal sensory function, no focal deficits noted. [] Psychologic: Affect normal, judgement normal, mood normal. [] Current Patient Data: Labs: Laboratory Tests Test 04/13/21 15:35 04/13/21 15:46 White Blood Count 7.6 x10^3/uL (4.0-11.0) Red Blood Count 4.36 x10^6/uL (3.50-5.40) Hemoglobin 12.3 g/dL (12.0-15.5) Hematocrit 38.1 % (36.0-47.0) Mean Corpuscular Volume 88 fL (79-100) Mean Corpuscular Hemoglobin 28 pg (25-35) Mean Corpuscular Hemoglobin Concent 32 g/dL (31-37) Red Cell Distribution Width 17.4 % (11.5-14.5) H Platelet Count 177 x10^3/uL (140-400) Neutrophils (%) (Auto) 59 % (31-73) Lymphocytes (%) (Auto) 13 % (24-48) L Monocytes (%) (Auto) 9 % (0-9) Eosinophils (%) (Auto) 18 % (0-3) H Basophils (%) (Auto) 1 % (0-3) Neutrophils # (Auto) 4.5 x10^3/uL (1.8-7.7) Lymphocytes # (Auto) 1.0 x10^3/uL (1.0-4.8) Monocytes # (Auto) 0.7 x10^3/uL (0.0-1.1) Eosinophils # (Auto) 1.3 x10^3/uL (0.0-0.7) H Basophils # (Auto) 0.1 x10^3/uL (0.0-0.2) Platelet Estimate Pending Sodium Level 139 mmol/L (136-145) Potassium Level 5.5 mmol/L (3.5-5.1) H Chloride Level 109 mmol/L (98-107) H Carbon Dioxide Level 21 mmol/L (21-32) Anion Gap 9 (6-14) Blood Urea Nitrogen 65 mg/dL (7-20) H Creatinine 2.2 mg/dL (0.6-1.0) H Estimated GFR (Cockcroft-Gault) 26.2 BUN/Creatinine Ratio 30 (6-20) H Glucose Level 174 mg/dL (70-99) H Calcium Level 8.5 mg/dL (8.5-10.1) Magnesium Level 2.3 mg/dL (1.8-2.4) Total Bilirubin 0.4 mg/dL (0.2-1.0) Aspartate Amino Transferase (AST) 18 U/L (15-37) Alanine Aminotransferase (ALT) 28 U/L (14-59) Alkaline Phosphatase 84 U/L (46-116) Troponin I High Sensitivity 18 ng/L (4-50) OF-Fvw-V-Type Natriuretic Peptide 95672 pg/mL (0-449) H Total Protein 7.0 g/dL (6.4-8.2) Albumin 3.1 g/dL (3.4-5.0) L Albumin/Globulin Ratio 0.8 (1.0-1.7) L SARS-CoV-2 Antigen (Rapid) Negative (NEGATIVE) Laboratory Tests 04/13/21 15:35 Laboratory Tests 04/13/21 15:35 Vital Signs: Vital Signs Date Time Temp Pulse Resp B/P (MAP) Pulse Ox O2 Delivery O2 Flow Rate FiO2 04/13/21 15:54 94 Room Air 04/13/21 15:18 97.6 83 40 123/62 (82) 97.6 EKG: EKG: EKG was done at 15.7, heart rate 83 bpm, sinus rhythm, no ST segment elevation, atrial premature complexes, left axis deviation, right bundle branch block Radiology/Procedures: Radiology/Procedures: [][facility] [address] [place] [address] IMAGING REPORT Signed PATIENT: MAJO CONNOLLYCOUNT: [id number] : 1945 LOCATION: ER AGE: 76 SEX: F EXAM STATUS: REG ER ORD. PHYSICIAN: JESUS VILLALPANDO DO REASON: SOA PROCEDURE: PORTABLE CHEST 1V EXAM: Chest, single view. HISTORY: Shortness of air. COMPARISON: 11/24/2020 FINDINGS: A frontal view of the chest obtained. There is no infiltrate, pleural effusion or pneumothorax. There is a stable prominent cardiac silhouette and evidence of prior median sternotomy and valve surgery. There is a cardiac pacemaker defibrillator in expected position. IMPRESSION: Stable enlarged chronic silhouette and postoperative changes. Electronically signed by: Marguerite Mendenhall MD (04/13/2021 3:43 PM) [id number] DICTATED and SIGNED BY: MARGUERITE MENDENHALL MD DATE: 04/13/21 [id number] 0 Course & Med Decision Making: Course & Med Decision Making Pertinent Labs and Imaging studies reviewed. (See chart for details) Patient is a 76-year-old female who present to ER for evaluation of trouble breathing for 3 to 4 days. Work-up in the ER showing that patient had acute CHF exacerbation with acute on chronic renal insufficiency. Patient will need to be admitted to hospital for further evaluation and treatment, discussed with hospitalist on-call Dr. Salcido who agreed to admit the patient. Patient was found to be wheezing on examination. Patient was given DuoNeb treatment in the ED. Patient says she feel much better Dragon Disclaimer: Alfredo Disclaimer: This electronic medical record was generated, in whole or in part, using a voice recognition dictation system. Departure Departure Impression: Primary Impression: CHF exacerbation Additional Impressions: Acute asthma flare Acute on chronic renal insufficiency Disposition: ADMITTED INPATIENT Admitting Physician: DAVID (DR. SALCIDO) Condition: STABLE Referrals: SHAHAB GARCIA MD (PCP) JESUS VILLALPANDO DO Apr 13, 2021 16:50
[2021-04-13 17:45] LABS: % BASOS 2 % (0-3); % EOS 16 % (0-5); % LYMPHS 15 % (24-48); % MONOS 4 % (0-10); % SEGS 63 % (35-66)
--- NOTE | 2021-04-13 17:45 | HP ---
DATE OF SERVICE: 04/13/2021 ADMIT DATE: 04/13/2021 CHIEF COMPLAINT: Shortness of breath. HISTORY OF PRESENT ILLNESS: The patient is a pleasant elderly female who presented to the ER with shortness of breath which has been occurring for several days. We did some imaging of her chest that is showing some vascular congestion and an enlarged cardiac silhouette. Her BNP is also high at 18,945. She was also bumped her creatinine up to 2.2 and her BUN 65. I discussed the case with the ER physician. We are going to admit the patient and consult Nephrology and Cardiology. PAST MEDICAL HISTORY: Chronic renal insufficiency, asthma, CHF, diabetes, hypertension, hyperlipidemia, coronary artery disease, coronary artery bypass surgery, hysterectomy, pacemaker, valve repair x 2, AICD, previous tobacco abuse. ALLERGIES: None. FAMILY HISTORY: Diabetes. SOCIAL HISTORY: She used to smoke. No drink or drugs. Lives at home. MEDICATIONS: Reviewed. Please refer to the MRAD. REVIEW OF SYSTEMS: GENERAL: No history of weight change, weakness or fevers. SKIN: No bruising, hair changes or rashes. EYES: No blurred, double or loss of vision. NOSE AND THROAT: No history of nosebleeds, hoarseness or sore throat. HEART: No history of palpitations, chest pain or shortness of breath on exertion. LUNGS: She complains of shortness of breath. GASTROINTESTINAL: Denies changes in appetite, nausea, vomiting, diarrhea or constipation. GENITOURINARY: No history of frequency, urgency, hesitancy or nocturia. NEUROLOGIC: Denies history of numbness, tingling, tremor or weakness. PSYCHIATRIC: No history of panic, anxiety or depression. ENDOCRINE: No history of heat or cold intolerance, polyuria or polydipsia. EXTREMITIES: Denies muscle weakness, joint pain, pain on walking or stiffness. PHYSICAL EXAMINATION: VITALS: Within normal limits and are stable. GENERAL: No apparent distress. Alert and oriented. HEENT: Normal cephalic atraumatic, external auditory canals are patent. Eyes: Extraocular muscles are intact, pupils are equally round and reactive to light and accommodation. MUSCULOSKELETAL: Well developed, well nourished, good range of motion. ENDOCRINE: No thyromegaly was palpated. LYMPHATICS: No cervical chain or axillary nodes were noted. HEMATOPOIETIC: No bruising. NECK: Supple, no JVD, no thyromegaly was noted. LUNGS: She has bibasilar crackles. HEART: RRR, S1, S2 present. Peripheral pulses intact, no obvious murmurs were noted. ABDOMEN: Soft, nontender. Positive bowel sounds, no organomegaly, normal bowel sounds. EXTREMITIES: Without any cyanosis, clubbing, or edema. Pedal pulses intact, Homans sign is negative. NEUROLOGIC: Normal speech, normal tone. A and O x 3, moves all extremities, no obvious focal deficits. PSYCHIATRIC: Normal affect, normal mood. Stable. SKIN: No ulcerations or rashes, good skin turgor, no jaundice. VASCULAR: Good capillary refill, neurovascular bundle appears to be intact. LABORATORY DATA: Chest x-ray shows some slight vascular congestion with a borderline cardiac silhouette and a pacemaker and the above-mentioned coronary bypass sternal wires. BNP 18,945. Potassium 5.5, BUN 65, creatinine 2.2, glucose 174. ASSESSMENT AND PLAN: Acute on chronic systolic and diastolic heart failure, acute on chronic renal failure, hyperkalemia, debility. The patient has been admitted. We will consult Cardiology and Nephrology. We would like to try a dose of Lasix, but her creatinine has bumped up, we will await Cardiology and Nephrology input. Home meds. Deep venous thrombosis prophylaxis. Full code. Trend labs. PT, OT. Suspect she will need to go to snf. DOROTEO/SHA DR: Kena TID: [id number]
[2021-04-13 17:46] LABS: ANISOCYTOSIS SLIGHT; PLT ESTIMATE ADEQUATE (ADEQUATE)
[2021-04-13 19:00] VITALS: BP 121/85
[2021-04-13] MEDS ORDERED: ALBUTEROL SULFATE 2.5 MG/3 ML NEBU. NEB PRN (19:45)
[2021-04-13] MEDS: ALBUTEROL SULFATE 8GM INHALER. INH PRN (20:16)
[2021-04-13 23:00] VITALS: BP 124/74
[2021-04-14] MEDS: ALBUTEROL SULFATE 8GM INHALER. INH PRN (00:55)
[2021-04-14 03:00] VITALS: BP 130/64
[2021-04-14 07:00] VITALS: BP 122/76
[2021-04-14 07:16] LABS: CALCIUM 8.9 mg/dL (8.5-10.1); GFR 29.2; POTASSIUM 5.7 mmol/L (3.5-5.1)
[2021-04-14 07:19] LABS: BASO # 0.1 x10^3/uL (0.0-0.2); BASO % 1 % (0-3); EOS # 1.2 x10^3/uL (0.0-0.7); EOS % 14 % (0-3); HEMATOCRIT 37.9 % (36.0-47.0); HEMOGLOBIN 12.4 g/dL (12.0-15.5); LYMPH % 12 % (24-48); MEAN CORPUSCULAR HEMOGLOBIN 29 pg (25-35); MEAN CORPUSCULAR HGB CONC 33 g/dL (31-37); MEAN CORPUSCULAR VOLUME 88 fL (79-100); MONO # 0.9 x10^3/uL (0.0-1.1); MONO % 11 % (0-9); NEUT % 61 % (31-73); PLATELET COUNT 168 x10^3/uL (140-400); RED BLOOD COUNT 4.31 x10^6/uL (3.50-5.40); RED CELL DISTRIBUTION WIDTH 17.8 % (11.5-14.5); WHITE BLOOD COUNT 8.2 x10^3/uL (4.0-11.0)
--- NOTE | 2021-04-14 07:36 | EKG ---
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
--- NOTE | 2021-04-14 07:37 | EKG ---
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
[2021-04-14] MEDS: IPRATRPIUM/ALBUTEROL 0.5/2.5MG 3 ML NEBU. NEB SCH ×4 (08:45→21:18)
[2021-04-14] MEDS ORDERED: SODIUM POLYSTYRENE SULFON/SORB 15 GM/60 ML ORAL.SUSP. PO ONE (10:00)
[2021-04-14] MEDS ORDERED: IV NORMAL SALINE 1000ML BAG 1,000 ML IV ONE (10:00)
[2021-04-14 11:00] VITALS: BP 132/61
--- NOTE | 2021-04-14 11:00 | PDOC2 ---
CONSULT Date of Consult Date of Consult DATE: 04/14/21 TIME: 10:55 Reason for Consult Reason for Consult: HIGH K AND KAMALJIT Referring Physician Referring Physician: ZELDA Identification/Chief Complaint Chief Complaint SOB Source Source: Chart review, Patient History of Present Illness Reason for Visit: THIS IS A 76 YR OLD WITH SOB. IMAGING OF CHEST NEG. COVID 19 NEG. SHE IS ON SUPPLEMENTAL OXYGEN NOW. RENAL CONSULT DUE TO CR OF 2.0 AND K OF 5.7. SHE HAS STAGE 3B CKD WITH CR OF ABOUT 1.5 AT BASELINE. SHE HAS BEEN SEEING DR GIVENS FOR HER CKD. SHE HAS A HX OF CHF. SHE STATES THAT SHE HAS NOT BEEN TAKING HER LASIX FOR ABOUT 4 DAYS. HEMODYNAMICALLY STABLE AND NO NEPHROTOXINS NOTED. CKD DUE TO HTN. NO OTHER HX REPORTED. Past Medical History Cardiovascular: CAD, CHF, HTN, Hyperlipidemia, Pulmonary hypertension, Other Pulmonary: Asthma CENTRAL NERVOUS SYSTEM: Other GI: No pertinent hx Heme/Onc: No pertinent hx Hepatobiliary: No pertinent hx Psych: No pertinent hx Musculoskeletal: Osteoarthritis Rheumatologic: No pertinent hx Infectious disease: No pertinent hx Renal/: Chronic renal insuff Endocrine: Diabetes Past Surgical History Past Surgical History: Pacemaker, CABG, Other Family History Family History: Coronary Artery Disease Social History ALCOHOL: none Drugs: None Lives: with Family Current Problem List Problem List Problems Medical Problems: (1) Acute asthma flare Status: Acute (2) Acute on chronic renal insufficiency Status: Acute (3) CHF exacerbation Status: Acute Current Medications Current Medications Current Medications Albuterol/ Ipratropium (Duoneb) 3 ml 1X ONCE NEB Last administered on 04/13/21at 15:54; Start 04/13/21 at 15:45; Stop 04/13/21 at 15:46; Status DC Albuterol Sulfate (Ventolin Neb Soln) 2.5 mg PRN Q4HRS PRN NEB SHORTNESS OF BREATH; Start 04/13/21 at 19:45; Status Cancel Albuterol Sulfate (Ventolin Hfa) 1 puff PRN Q4HRS PRN INH SHORTNESS OF BREATH Last administered on 04/14/21at 00:55; Start 04/13/21 at 20:15 Albuterol/ Ipratropium (Duoneb) 3 ml RTQID NEB Last administered on 04/14/21at 10:51; Start 04/14/21 at 08:45 Sodium Chloride 1,000 ml @ 75 mls/hr 1X ONCE IV Last administered on 04/14/21at 10:39; Start 04/14/21 at 10:00; Stop 04/14/21 at 23:19 Sodium Polystyrene Sulfonate (Kayexalate) 30 gm 1X ONCE PO Last administered on 04/14/21at 10:38; Start 04/14/21 at 10:00; Stop 04/14/21 at 10:01; Status DC Active Scripts Active Reported Coreg (Carvedilol) 25 Mg Tablet 25 Mg PO DAILY Omeprazole 20 Mg Tablet.dr 20 Mg PO DAILY Vitamin D3 (Cholecalciferol (Vitamin D3)) 1,250 Mcg Capsule 1,250 Mcg PO DAILY Klor-Con 10 (Potassium Chloride) 10 Meq Tablet.er 10 Meq PO DAILY Bumetanide 1 Mg Tablet 1 Mg PO DAILY Breztri Aerosphere Inhaler (Budesonide/Glycopyr/Formoterol) 10.7 Gm Hfa.aer.ad 10.7 Gm IH DAILY Prednisone 20 Mg Tablet 20 Mg PO PRN BID PRN 3 Days Carvedilol 25 Mg Tablet 12.5 Mg PO HS Januvia (Sitagliptin Phosphate) 100 Mg Tablet 100 Tab PO DAILY Benicar (Olmesartan Medoxomil) 40 Mg Tablet 1 Tab PO DAILY 30 Days Aspir 81 (Aspirin) 81 Mg Tablet.dr 1 Tab PO DAILY Albuterol Sulfate Neb Soln (Albuterol Sulfate) 1.25 Mg/3 Ml Vial.neb 1 Vial NEB TID Atorvastatin Calcium 20 Mg Tablet 1 Tab PO HS Allergies Allergies: Coded Allergies: No Known Drug Allergies (Unverified , 12/31/19) ROS General: YES: Fatigue, Malaise, Appetite PSYCHOLOGICAL ROS: YES: Anxiety Eyes: Yes Decreased vision HEENT: YES: [place] ALLERGY AND IMMUNOLOGY: YES: Seasonal Allergies Respiratory: YES: Cough, Orthopnea, Shortness of breath Gastrointestinal: Yes Constipation Genitourinary: YES Other (NOCTURIA) Musculoskeletal: Yes Muscular Weakness Neurological: Yes Weakness Skin: Yes Dry Skin Physical Exam General: Alert, Oriented X3, Cooperative, No acute distress HEENT: Atraumatic, PERRLA Lungs: Clear to auscultation Heart: Regular rate Abdomen: Normal bowel sounds, Soft, No tenderness Extremities: No clubbing, No cyanosis Skin: No breakdown Neuro: Normal speech, Sensation intact Psych/Mental Status: Mental status NL, Mood NL MUSCULOSKELETAL: No joint tenderness, No deformity, No swelling Vitals VITALS Vital Signs Date Time Temp Pulse Resp B/P (MAP) Pulse Ox O2 Delivery O2 Flow Rate FiO2 04/14/21 10:52 99 Nasal Cannula 2.0 04/14/21 07:00 97.6 83 20 122/76 (91) 97.6 Labs Labs Laboratory Tests Test 04/13/21 15:35 04/13/21 15:46 04/13/21 19:00 04/13/21 21:09 White Blood Count 7.6 x10^3/uL (4.0-11.0) Red Blood Count 4.36 x10^6/uL (3.50-5.40) Hemoglobin 12.3 g/dL (12.0-15.5) Hematocrit 38.1 % (36.0-47.0) Mean Corpuscular Volume 88 fL (79-100) Mean Corpuscular Hemoglobin 28 pg (25-35) Mean Corpuscular Hemoglobin Concent 32 g/dL (31-37) Red Cell Distribution Width 17.4 % (11.5-14.5) Platelet Count 177 x10^3/uL (140-400) Neutrophils (%) (Auto) 59 % (31-73) Lymphocytes (%) (Auto) 13 % (24-48) Monocytes (%) (Auto) 9 % (0-9) Eosinophils (%) (Auto) 18 % (0-3) Basophils (%) (Auto) 1 % (0-3) Neutrophils # (Auto) 4.5 x10^3/uL (1.8-7.7) Lymphocytes # (Auto) 1.0 x10^3/uL (1.0-4.8) Monocytes # (Auto) 0.7 x10^3/uL (0.0-1.1) Eosinophils # (Auto) 1.3 x10^3/uL (0.0-0.7) Basophils # (Auto) 0.1 x10^3/uL (0.0-0.2) Segmented Neutrophils % 63 % (35-66) Band Neutrophils % % (0-9) Lymphocytes % 15 % (24-48) Monocytes % 4 % (0-10) Eosinophils % 16 % (0-5) Basophils % 2 % (0-3) Platelet Estimate Adequate (ADEQUATE) Anisocytosis Slight Sodium Level 139 mmol/L (136-145) Potassium Level 5.5 mmol/L (3.5-5.1) Chloride Level 109 mmol/L (98-107) Carbon Dioxide Level 21 mmol/L (21-32) Anion Gap 9 (6-14) Blood Urea Nitrogen 65 mg/dL (7-20) Creatinine 2.2 mg/dL (0.6-1.0) Estimated GFR (Cockcroft-Gault) 26.2 BUN/Creatinine Ratio 30 (6-20) Glucose Level 174 mg/dL (70-99) Calcium Level 8.5 mg/dL (8.5-10.1) Magnesium Level 2.3 mg/dL (1.8-2.4) Total Bilirubin 0.4 mg/dL (0.2-1.0) Aspartate Amino Transf (AST/SGOT) 18 U/L (15-37) Alanine Aminotransferase (ALT/SGPT) 28 U/L (14-59) Alkaline Phosphatase 84 U/L (46-116) Troponin I High Sensitivity 18 ng/L (4-50) 18 ng/L (4-50) ZJ-Vex-G-Type Natriuretic Peptide 36899 pg/mL (0-449) Total Protein 7.0 g/dL (6.4-8.2) Albumin 3.1 g/dL (3.4-5.0) Albumin/Globulin Ratio 0.8 (1.0-1.7) Coronavirus (COVID-19)(PCR) Not detected (NOT DETECTD) SARS-CoV-2 Antigen (Rapid) Negative (NEGATIVE) Glucose (Fingerstick) 146 mg/dL (70-99) Test 04/13/21 21:35 04/14/21 06:00 04/14/21 09:29 Troponin I High Sensitivity 19 ng/L (4-50) White Blood Count 8.2 x10^3/uL (4.0-11.0) Red Blood Count 4.31 x10^6/uL (3.50-5.40) Hemoglobin 12.4 g/dL (12.0-15.5) Hematocrit 37.9 % (36.0-47.0) Mean Corpuscular Volume 88 fL (79-100) Mean Corpuscular Hemoglobin 29 pg (25-35) Mean Corpuscular Hemoglobin Concent 33 g/dL (31-37) Red Cell Distribution Width 17.8 % (11.5-14.5) Platelet Count 168 x10^3/uL (140-400) Neutrophils (%) (Auto) 61 % (31-73) Lymphocytes (%) (Auto) 12 % (24-48) Monocytes (%) (Auto) 11 % (0-9) Eosinophils (%) (Auto) 14 % (0-3) Basophils (%) (Auto) 1 % (0-3) Neutrophils # (Auto) 5.0 x10^3/uL (1.8-7.7) Lymphocytes # (Auto) 1.0 x10^3/uL (1.0-4.8) Monocytes # (Auto) 0.9 x10^3/uL (0.0-1.1) Eosinophils # (Auto) 1.2 x10^3/uL (0.0-0.7) Basophils # (Auto) 0.1 x10^3/uL (0.0-0.2) Sodium Level 140 mmol/L (136-145) Potassium Level 5.7 mmol/L (3.5-5.1) Chloride Level 108 mmol/L (98-107) Carbon Dioxide Level 20 mmol/L (21-32) Anion Gap 12 (6-14) Blood Urea Nitrogen 63 mg/dL (7-20) Creatinine 2.0 mg/dL (0.6-1.0) Estimated GFR (Cockcroft-Gault) 29.2 Glucose Level 133 mg/dL (70-99) Calcium Level 8.9 mg/dL (8.5-10.1) Glucose (Fingerstick) 131 mg/dL (70-99) Laboratory Tests Test 04/13/21 15:35 04/13/21 15:46 04/13/21 19:00 04/13/21 21:09 White Blood Count 7.6 x10^3/uL (4.0-11.0) Red Blood Count 4.36 x10^6/uL (3.50-5.40) Hemoglobin 12.3 g/dL (12.0-15.5) Hematocrit 38.1 % (36.0-47.0) Mean Corpuscular Volume 88 fL (79-100) Mean Corpuscular Hemoglobin 28 pg (25-35) Mean Corpuscular Hemoglobin Concent 32 g/dL (31-37) Red Cell Distribution Width 17.4 % (11.5-14.5) Platelet Count 177 x10^3/uL (140-400) Neutrophils (%) (Auto) 59 % (31-73) Lymphocytes (%) (Auto) 13 % (24-48) Monocytes (%) (Auto) 9 % (0-9) Eosinophils (%) (Auto) 18 % (0-3) Basophils (%) (Auto) 1 % (0-3) Neutrophils # (Auto) 4.5 x10^3/uL (1.8-7.7) Lymphocytes # (Auto) 1.0 x10^3/uL (1.0-4.8) Monocytes # (Auto) 0.7 x10^3/uL (0.0-1.1) Eosinophils # (Auto) 1.3 x10^3/uL (0.0-0.7) Basophils # (Auto) 0.1 x10^3/uL (0.0-0.2) Segmented Neutrophils % 63 % (35-66) Band Neutrophils % % (0-9) Lymphocytes % 15 % (24-48) Monocytes % 4 % (0-10) Eosinophils % 16 % (0-5) Basophils % 2 % (0-3) Platelet Estimate Adequate (ADEQUATE) Anisocytosis Slight Sodium Level 139 mmol/L (136-145) Potassium Level 5.5 mmol/L (3.5-5.1) Chloride Level 109 mmol/L (98-107) Carbon Dioxide Level 21 mmol/L (21-32) Anion Gap 9 (6-14) Blood Urea Nitrogen 65 mg/dL (7-20) Creatinine 2.2 mg/dL (0.6-1.0) Estimated GFR (Cockcroft-Gault) 26.2 BUN/Creatinine Ratio 30 (6-20) Glucose Level 174 mg/dL (70-99) Calcium Level 8.5 mg/dL (8.5-10.1) Magnesium Level 2.3 mg/dL (1.8-2.4) Total Bilirubin 0.4 mg/dL (0.2-1.0) Aspartate Amino Transf (AST/SGOT) 18 U/L (15-37) Alanine Aminotransferase (ALT/SGPT) 28 U/L (14-59) Alkaline Phosphatase 84 U/L (46-116) Troponin I High Sensitivity 18 ng/L (4-50) 18 ng/L (4-50) TW-Elm-M-Type Natriuretic Peptide 96922 pg/mL (0-449) Total Protein 7.0 g/dL (6.4-8.2) Albumin 3.1 g/dL (3.4-5.0) Albumin/Globulin Ratio 0.8 (1.0-1.7) Coronavirus (COVID-19)(PCR) Not detected (NOT DETECTD) SARS-CoV-2 Antigen (Rapid) Negative (NEGATIVE) Glucose (Fingerstick) 146 mg/dL (70-99) Test 04/13/21 21:35 04/14/21 06:00 04/14/21 09:29 Troponin I High Sensitivity 19 ng/L (4-50) White Blood Count 8.2 x10^3/uL (4.0-11.0) Red Blood Count 4.31 x10^6/uL (3.50-5.40) Hemoglobin 12.4 g/dL (12.0-15.5) Hematocrit 37.9 % (36.0-47.0) Mean Corpuscular Volume 88 fL (79-100) Mean Corpuscular Hemoglobin 29 pg (25-35) Mean Corpuscular Hemoglobin Concent 33 g/dL (31-37) Red Cell Distribution Width 17.8 % (11.5-14.5) Platelet Count 168 x10^3/uL (140-400) Neutrophils (%) (Auto) 61 % (31-73) Lymphocytes (%) (Auto) 12 % (24-48) Monocytes (%) (Auto) 11 % (0-9) Eosinophils (%) (Auto) 14 % (0-3) Basophils (%) (Auto) 1 % (0-3) Neutrophils # (Auto) 5.0 x10^3/uL (1.8-7.7) Lymphocytes # (Auto) 1.0 x10^3/uL (1.0-4.8) Monocytes # (Auto) 0.9 x10^3/uL (0.0-1.1) Eosinophils # (Auto) 1.2 x10^3/uL (0.0-0.7) Basophils # (Auto) 0.1 x10^3/uL (0.0-0.2) Sodium Level 140 mmol/L (136-145) Potassium Level 5.7 mmol/L (3.5-5.1) Chloride Level 108 mmol/L (98-107) Carbon Dioxide Level 20 mmol/L (21-32) Anion Gap 12 (6-14) Blood Urea Nitrogen 63 mg/dL (7-20) Creatinine 2.0 mg/dL (0.6-1.0) Estimated GFR (Cockcroft-Gault) 29.2 Glucose Level 133 mg/dL (70-99) Calcium Level 8.9 mg/dL (8.5-10.1) Glucose (Fingerstick) 131 mg/dL (70-99) Images Images PATIENT: MAJO CONNOLLY JACCOUNT: [id number] : 1945 LOCATION: ER AGE: 76 SEX: F EXAM STATUS: REG ER ORD. PHYSICIAN: JESUS VILLALPANDO DO REASON: SOA PROCEDURE: PORTABLE CHEST 1V EXAM: Chest, single view. HISTORY: Shortness of air. COMPARISON: 11/24/2020 FINDINGS: A frontal view of the chest obtained. There is no infiltrate, pleural effusion or pneumothorax. There is a stable prominent cardiac silhouette and evidence of prior median sternotomy and valve surgery. There is a cardiac pacemaker defibrillator in expected position. IMPRESSION: Stable enlarged chronic silhouette and postoperative changes. Electronically signed by: Marguerite Perez MD (04/13/2021 3:43 PM) [id number] Assessment/Plan Assessment/Plan IMP HYPERKALEMIA KAMALJIT WITH CR OF 2.0 CKD STAGE 3B WITH BASELINE CR OF 1.5 ACUTE ON CHRONIC DIASTOLIC AND SYSTOLIC CHF HX OF HTN HX OF CAD PLAN STOP HYDRATION IV LASIX TODAY RESUME HER HOME LASIX SUPPLEMENTAL OXYGEN NEEDED CONSIDER CARDIOLOGY EVALUATION LABS IN AM WILL FOLLOW EMILY NAYLOR MD Apr 14, 2021 11:00
--- NOTE | 2021-04-14 11:17 | NUR ---
SW following. Discussed with RN, pt from home with , room air, ada diet, COVID-19 negative. Cardiology and Nephrology following. PT/OT ordered. RN advised no SW needs at this time. SW will continue to follow.
[2021-04-14] MEDS ORDERED: FUROSEMIDE 20 MG/2 ML VIAL. IVP ONE (11:30)
--- NOTE | 2021-04-14 11:35 | PDOC ---
[employer] PROGRESS NOTE Date of Service DOS: DATE: 04/14/21 TIME: 11:26 Chief Complaint Chief Complaint Shortness of breath Chronic renal insufficiency Asthma CHF Diabetes mellitus Hypertension Hyperlipidemia Coronary artery disease Coronary artery bypass surgery Hysterectomy Pacemaker Valve repair x 2 AICD Previous tobacco abuse. History of Present Illness History of Present Illness 04/14/2021 Patient was seen and examined laying in bed Discussed treatment for acute CHF exacerbation and renal failure Waiting on nephrology and cardiology consult regarding starting lasix Case discussed with RN Chart reviewed Vitals/I&O Vitals/I&O: Vital Signs Date Time Temp Pulse Resp B/P (MAP) Pulse Ox O2 Delivery O2 Flow Rate FiO2 04/14/21 10:52 99 Nasal Cannula 2.0 04/14/21 07:00 97.6 83 20 122/76 (91) 97.6 I & O 04/13/21 04/13/21 04/14/21 15:00 23:00 07:00 Output Total 100 ml Balance -100 ml Physical Exam General: Alert, Oriented X3, Cooperative, moderate distress (Coughing frequently and in moderate distress) Heart: Regular rate Lungs: Crackles Abdomen: Normal bowel sounds, Soft, No tenderness Extremities: No clubbing, No cyanosis Skin: No breakdown Labs Labs: Laboratory Tests Test 04/13/21 15:35 04/13/21 15:46 04/13/21 19:00 04/13/21 21:09 White Blood Count 7.6 x10^3/uL (4.0-11.0) Red Blood Count 4.36 x10^6/uL (3.50-5.40) Hemoglobin 12.3 g/dL (12.0-15.5) Hematocrit 38.1 % (36.0-47.0) Mean Corpuscular Volume 88 fL (79-100) Mean Corpuscular Hemoglobin 28 pg (25-35) Mean Corpuscular Hemoglobin Concent 32 g/dL (31-37) Red Cell Distribution Width 17.4 % (11.5-14.5) Platelet Count 177 x10^3/uL (140-400) Neutrophils (%) (Auto) 59 % (31-73) Lymphocytes (%) (Auto) 13 % (24-48) Monocytes (%) (Auto) 9 % (0-9) Eosinophils (%) (Auto) 18 % (0-3) Basophils (%) (Auto) 1 % (0-3) Neutrophils # (Auto) 4.5 x10^3/uL (1.8-7.7) Lymphocytes # (Auto) 1.0 x10^3/uL (1.0-4.8) Monocytes # (Auto) 0.7 x10^3/uL (0.0-1.1) Eosinophils # (Auto) 1.3 x10^3/uL (0.0-0.7) Basophils # (Auto) 0.1 x10^3/uL (0.0-0.2) Segmented Neutrophils % 63 % (35-66) Band Neutrophils % % (0-9) Lymphocytes % 15 % (24-48) Monocytes % 4 % (0-10) Eosinophils % 16 % (0-5) Basophils % 2 % (0-3) Platelet Estimate Adequate (ADEQUATE) Anisocytosis Slight Sodium Level 139 mmol/L (136-145) Potassium Level 5.5 mmol/L (3.5-5.1) Chloride Level 109 mmol/L (98-107) Carbon Dioxide Level 21 mmol/L (21-32) Anion Gap 9 (6-14) Blood Urea Nitrogen 65 mg/dL (7-20) Creatinine 2.2 mg/dL (0.6-1.0) Estimated GFR (Cockcroft-Gault) 26.2 BUN/Creatinine Ratio 30 (6-20) Glucose Level 174 mg/dL (70-99) Calcium Level 8.5 mg/dL (8.5-10.1) Magnesium Level 2.3 mg/dL (1.8-2.4) Total Bilirubin 0.4 mg/dL (0.2-1.0) Aspartate Amino Transf (AST/SGOT) 18 U/L (15-37) Alanine Aminotransferase (ALT/SGPT) 28 U/L (14-59) Alkaline Phosphatase 84 U/L (46-116) Troponin I High Sensitivity 18 ng/L (4-50) 18 ng/L (4-50) LL-Pld-F-Type Natriuretic Peptide 58885 pg/mL (0-449) Total Protein 7.0 g/dL (6.4-8.2) Albumin 3.1 g/dL (3.4-5.0) Albumin/Globulin Ratio 0.8 (1.0-1.7) Coronavirus (COVID-19)(PCR) Not detected (NOT DETECTD) SARS-CoV-2 Antigen (Rapid) Negative (NEGATIVE) Glucose (Fingerstick) 146 mg/dL (70-99) Test 04/13/21 21:35 04/14/21 06:00 04/14/21 09:29 Troponin I High Sensitivity 19 ng/L (4-50) White Blood Count 8.2 x10^3/uL (4.0-11.0) Red Blood Count 4.31 x10^6/uL (3.50-5.40) Hemoglobin 12.4 g/dL (12.0-15.5) Hematocrit 37.9 % (36.0-47.0) Mean Corpuscular Volume 88 fL (79-100) Mean Corpuscular Hemoglobin 29 pg (25-35) Mean Corpuscular Hemoglobin Concent 33 g/dL (31-37) Red Cell Distribution Width 17.8 % (11.5-14.5) Platelet Count 168 x10^3/uL (140-400) Neutrophils (%) (Auto) 61 % (31-73) Lymphocytes (%) (Auto) 12 % (24-48) Monocytes (%) (Auto) 11 % (0-9) Eosinophils (%) (Auto) 14 % (0-3) Basophils (%) (Auto) 1 % (0-3) Neutrophils # (Auto) 5.0 x10^3/uL (1.8-7.7) Lymphocytes # (Auto) 1.0 x10^3/uL (1.0-4.8) Monocytes # (Auto) 0.9 x10^3/uL (0.0-1.1) Eosinophils # (Auto) 1.2 x10^3/uL (0.0-0.7) Basophils # (Auto) 0.1 x10^3/uL (0.0-0.2) Sodium Level 140 mmol/L (136-145) Potassium Level 5.7 mmol/L (3.5-5.1) Chloride Level 108 mmol/L (98-107) Carbon Dioxide Level 20 mmol/L (21-32) Anion Gap 12 (6-14) Blood Urea Nitrogen 63 mg/dL (7-20) Creatinine 2.0 mg/dL (0.6-1.0) Estimated GFR (Cockcroft-Gault) 29.2 Glucose Level 133 mg/dL (70-99) Calcium Level 8.9 mg/dL (8.5-10.1) Glucose (Fingerstick) 131 mg/dL (70-99) Assessment and Plan Assessmemt and Plan Problems Medical Problems: (1) Acute asthma flare Status: Acute (2) Acute on chronic renal insufficiency Status: Acute (3) CHF exacerbation Status: Acute Assessment Acute on chronic systolic and diastolic heart failure Acute on chronic renal failure Hyperkalemia Debility Consult Cardiology and Nephrology Consider dose of Lasix, but her creatinine has bumped up; waiting for cardio and nephro input Continue Home meds Deep venous thrombosis prophylaxis Full code Trend labs PT, OT. Suspect she will need to go to [facility] Comment Review of Relevant I have reviewed the following items deirdre (where applicable) has been applied. Medications: Current Medications Medications (Trade) Dose Ordered Sig/Jeremy Route PRN Reason Start Time Stop Time Status Last Admin Dose Admin Albuterol/ Ipratropium (Duoneb) 3 ml 1X ONCE NEB 04/13/21 15:45 04/13/21 15:46 DC 04/13/21 15:54 Albuterol Sulfate (Ventolin Hfa) 1 puff PRN Q4HRS PRN INH SHORTNESS OF BREATH 04/13/21 20:15 04/14/21 00:55 Albuterol/ Ipratropium (Duoneb) 3 ml RTQID NEB 04/14/21 08:45 04/14/21 10:51 Sodium Chloride 1,000 ml @ 75 mls/hr 1X ONCE IV 04/14/21 10:00 04/14/21 11:02 DC 04/14/21 10:39 Sodium Polystyrene Sulfonate (Kayexalate) 30 gm 1X ONCE PO 04/14/21 10:00 04/14/21 10:01 DC 04/14/21 10:38 Justifications for Admission Other Justification BREEZY NDIAYE III DO Apr 14, 2021 11:35
[2021-04-14] MEDS ORDERED: methylPREDNISolone SOD SUCC PF 125 MG/2 ML VIAL. IV ONE (11:45)
[2021-04-14] MEDS ORDERED: CARV12.53 PO (11:45)
[2021-04-14] MEDS ORDERED: OMEP40CA7 PO (11:45)
[2021-04-14] MEDS ORDERED: IPRA3AMP29 NEB (11:45)
[2021-04-14] MEDS ORDERED: POTA10TA12 PO (11:45)
[2021-04-14] MEDS ORDERED: OLME40TA16 PO (11:45)
[2021-04-14] MEDS ORDERED: ALBUTEROL SULFATE 2.5 MG/3 ML NEBU. NEB PRN (12:00)
[2021-04-14] MEDS ORDERED: ALBUTEROL SULFATE 2.5 MG/3 ML NEBU. NEB ONE (12:00)
--- NOTE | 2021-04-14 12:01 | PDOC2 ---
KINGSTON COREA JETTING MACHINE OPERATOR 04/14/21 1201: CARDIAC CONSULT DATE OF CONSULT Date of Consult DATE: 04/14/21 TIME: 11:25 REASON FOR CONSULT Reason for Consult: CHF REFERRING PHYSICIAN Referring Physician: Omari SOURCE Source: Chart review, Patient HISTORY OF PRESENT ILLNESS HISTORY OF PRESENT ILLNESS This is a pleasant 76 yo female admitted for complains of shortness of breath. She is slightly wheezy with nonproductive cough. No fever or chills. She went to [place] last Sunday and came back Sunday to attend a . Sunday she started having watery stools and has been ongoing for about 2x daily. She has not take her diuretic since she went to [place] but at the same time she has not been eating nor drinking fluids as well. No significant peripheral edema and no nausea or vomiting. No abdominal pain. No blood in stool. No anosmia or ageusia. She has been taking all of her medications. No chest pain, palpitations. She is vaccinated for covid-19 and already had the booster. PAST MEDICAL HISTORY Past Medical History Cardiovascular: CAD, CHF, HTN, Hyperlipidemia, Pulmonary hypertension, Other (severe ICM) Pulmonary: Asthma, PE CENTRAL NERVOUS SYSTEM: Other (No pertinent history) GI: No pertinent hx Heme/Onc: No pertinent hx Hepatobiliary: No pertinent hx Psych: No pertinent hx Musculoskeletal: Osteoarthritis Rheumatologic: No pertinent hx Infectious disease: No pertinent hx Renal/: Chronic renal insuff Endocrine: Diabetes (2) Dermatology: No pertinent hx PAST SURGICAL HISTORY Past Surgical History Pacemaker (Medtronic AICD with Gen change 05/2015), CABG (2008 with TV/MV repair), Other (thyroid surgery) FAMILY HISTORY Family History: Coronary Artery Disease CURRENT MEDICATIONS CURRENT MEDICATIONS Current Medications Medications (Trade) Dose Ordered Sig/Jeremy Route PRN Reason Start Time Stop Time Status Last Admin Dose Admin Albuterol/ Ipratropium (Duoneb) 3 ml 1X ONCE NEB 04/13/21 15:45 04/13/21 15:46 DC 04/13/21 15:54 Albuterol Sulfate (Ventolin Hfa) 1 puff PRN Q4HRS PRN INH SHORTNESS OF BREATH 04/13/21 20:15 04/14/21 00:55 Albuterol/ Ipratropium (Duoneb) 3 ml RTQID NEB 04/14/21 08:45 04/14/21 10:51 Sodium Chloride 1,000 ml @ 75 mls/hr 1X ONCE IV 04/14/21 10:00 04/14/21 11:02 DC 04/14/21 10:39 Sodium Polystyrene Sulfonate (Kayexalate) 30 gm 1X ONCE PO 04/14/21 10:00 04/14/21 10:01 DC 04/14/21 10:38 ALLERGIES ALLERGIES: Coded Allergies: No Known Drug Allergies (Unverified , 12/31/19) ROS Review of System 14 point ROS evaluated with pertinent positives noted per HPI PHYSICAL EXAM General: Alert, Oriented X3, Cooperative, No acute distress HEENT: Atraumatic, Mucous membr. moist/pink Lungs: Other (diffuse expiratory wheeze) Heart: Regular rate (SR), Normal S1, Normal S2, Other (3/6 systolic murmur to LLS border) Abdomen: Soft, No tenderness Extremities: No cyanosis, No edema Skin: No breakdown, No significant lesion Neuro: Normal speech, Sensation intact Psych/Mental Status: Mental status NL, Mood NL MUSCULOSKELETAL: Osteoarthritic changes both hands VITALS/I&O VITALS/I&O: Vital Signs Date Time Temp Pulse Resp B/P (MAP) Pulse Ox O2 Delivery O2 Flow Rate FiO2 04/14/21 10:52 99 Nasal Cannula 2.0 04/14/21 07:00 97.6 83 20 122/76 (91) 97.6 I & O 04/13/21 04/13/21 04/14/21 15:00 23:00 07:00 Output Total 100 ml Balance -100 ml LABS Lab: Laboratory Tests Test 04/13/21 15:35 04/13/21 15:46 04/13/21 19:00 04/13/21 21:09 White Blood Count 7.6 x10^3/uL (4.0-11.0) Red Blood Count 4.36 x10^6/uL (3.50-5.40) Hemoglobin 12.3 g/dL (12.0-15.5) Hematocrit 38.1 % (36.0-47.0) Mean Corpuscular Volume 88 fL (79-100) Mean Corpuscular Hemoglobin 28 pg (25-35) Mean Corpuscular Hemoglobin Concent 32 g/dL (31-37) Red Cell Distribution Width 17.4 % (11.5-14.5) H Platelet Count 177 x10^3/uL (140-400) Neutrophils (%) (Auto) 59 % (31-73) Lymphocytes (%) (Auto) 13 % (24-48) L Monocytes (%) (Auto) 9 % (0-9) Eosinophils (%) (Auto) 18 % (0-3) H Basophils (%) (Auto) 1 % (0-3) Neutrophils # (Auto) 4.5 x10^3/uL (1.8-7.7) Lymphocytes # (Auto) 1.0 x10^3/uL (1.0-4.8) Monocytes # (Auto) 0.7 x10^3/uL (0.0-1.1) Eosinophils # (Auto) 1.3 x10^3/uL (0.0-0.7) H Basophils # (Auto) 0.1 x10^3/uL (0.0-0.2) Segmented Neutrophils % 63 % (35-66) Band Neutrophils % % (0-9) Lymphocytes % 15 % (24-48) L Monocytes % 4 % (0-10) Eosinophils % 16 % (0-5) H Basophils % 2 % (0-3) Platelet Estimate Adequate (ADEQUATE) Anisocytosis Slight Sodium Level 139 mmol/L (136-145) Potassium Level 5.5 mmol/L (3.5-5.1) H Chloride Level 109 mmol/L (98-107) H Carbon Dioxide Level 21 mmol/L (21-32) Anion Gap 9 (6-14) Blood Urea Nitrogen 65 mg/dL (7-20) H Creatinine 2.2 mg/dL (0.6-1.0) H Estimated GFR (Cockcroft-Gault) 26.2 BUN/Creatinine Ratio 30 (6-20) H Glucose Level 174 mg/dL (70-99) H Calcium Level 8.5 mg/dL (8.5-10.1) Magnesium Level 2.3 mg/dL (1.8-2.4) Total Bilirubin 0.4 mg/dL (0.2-1.0) Aspartate Amino Transferase (AST) 18 U/L (15-37) Alanine Aminotransferase (ALT) 28 U/L (14-59) Alkaline Phosphatase 84 U/L (46-116) Troponin I High Sensitivity 18 ng/L (4-50) 18 ng/L (4-50) CT-Peq-X-Type Natriuretic Peptide 12169 pg/mL (0-449) H Total Protein 7.0 g/dL (6.4-8.2) Albumin 3.1 g/dL (3.4-5.0) L Albumin/Globulin Ratio 0.8 (1.0-1.7) L SARS-CoV-2 (PCR) Not detected (NOT DETECTD) SARS-CoV-2 Antigen (Rapid) Negative (NEGATIVE) Glucose (Fingerstick) 146 mg/dL (70-99) H Test 04/13/21 21:35 04/14/21 06:00 04/14/21 09:29 Troponin I High Sensitivity 19 ng/L (4-50) White Blood Count 8.2 x10^3/uL (4.0-11.0) Red Blood Count 4.31 x10^6/uL (3.50-5.40) Hemoglobin 12.4 g/dL (12.0-15.5) Hematocrit 37.9 % (36.0-47.0) Mean Corpuscular Volume 88 fL (79-100) Mean Corpuscular Hemoglobin 29 pg (25-35) Mean Corpuscular Hemoglobin Concent 33 g/dL (31-37) Red Cell Distribution Width 17.8 % (11.5-14.5) H Platelet Count 168 x10^3/uL (140-400) Neutrophils (%) (Auto) 61 % (31-73) Lymphocytes (%) (Auto) 12 % (24-48) L Monocytes (%) (Auto) 11 % (0-9) H Eosinophils (%) (Auto) 14 % (0-3) H Basophils (%) (Auto) 1 % (0-3) Neutrophils # (Auto) 5.0 x10^3/uL (1.8-7.7) Lymphocytes # (Auto) 1.0 x10^3/uL (1.0-4.8) Monocytes # (Auto) 0.9 x10^3/uL (0.0-1.1) Eosinophils # (Auto) 1.2 x10^3/uL (0.0-0.7) H Basophils # (Auto) 0.1 x10^3/uL (0.0-0.2) Sodium Level 140 mmol/L (136-145) Potassium Level 5.7 mmol/L (3.5-5.1) H Chloride Level 108 mmol/L (98-107) H Carbon Dioxide Level 20 mmol/L (21-32) L Anion Gap 12 (6-14) Blood Urea Nitrogen 63 mg/dL (7-20) H Creatinine 2.0 mg/dL (0.6-1.0) H Estimated GFR (Cockcroft-Gault) 29.2 Glucose Level 133 mg/dL (70-99) H Calcium Level 8.9 mg/dL (8.5-10.1) Glucose (Fingerstick) 131 mg/dL (70-99) H Laboratory Tests 04/13/21 15:35 04/14/21 06:00 Laboratory Tests 04/13/21 15:35 04/14/21 06:00 ECHOCARDIOGRAM ECHOCARDIOGRAM <Conclusion> The systolic function is severely impaired. EF 25% There is global hypokinesis of the left ventricle. Probable prior mitral annuloplasty with moderate calcification noted. Doppler and Color Flow revealed mild tricuspid regurgitation. The PA pressure w as estimated at 48 mmHg. There is a pacing/ICD lead noted in the RA/RV. DATE: 12/10/20 [id number] 0 HEART CATH HEART CATH FINDINGS 1. Hemodynamics: Left ventricular end-diastolic pressure 8 mmHg. No pullback gradient across aortic valve. 2. Coronary and bypass graft angiography: a. The left main coronary artery arose from the left sinus of Valsalva, gave rise to the left anterior descending and left circumflex arteries and showed 20% stenosis in the distal segment. b. The left anterior descending artery showed 70% stenosis in the proximal seg ment and 100% chronic total occlusion in the midsegment after the takeoff of a diagonal branch that showed 70% stenosis in the proximal segment. c. The left circumflex artery was a large and dominant vessel that did not show any significant stenosis. d. The right coronary artery was a nondominant vessel arising from the right sinus of Valsalva that did not show any significant stenosis. e. The saphenous vein graft to the left anterior descending artery was widely patent. Distal to the anastomosis, the [place] left anterior descending artery did not show any significant stenosis. f. The saphenous vein graft to the diagonal branch of left anterior descending artery was widely patent. g. The left internal mammary artery was not grafted. Conclusion Coronary artery disease s/p coronary artery bypass surgery with patent SVG to LAD and patent SVG to diagonal branch. The dominant left circumflex artery and nondominant RCA were not grafted and did not show any significant stenosis. Recommendations Optimization of medical therapy for ischemic cardiomyopathy. Cardiovascular risk factor modification. DATE: 01/18/21 [id number] ASSESSMENT/PLAN ASSESSMENT/PLAN 1. Acute on chronic systolic CHF: does not appear to be significant overloaded. No peripheral edema nor pleural effusion and currently at her baseline wt at 61 KG 2. Asthma exacerbation: per PCP 3. Hx of ICM with AICD: medtronic, no optivol capability on this device. recent EF at 25% 4. KAMALJIT on CKD3 with hyperkalemia: prerenal with poor hydration and reported watery stools since Sunday 5. CAD/valvular disease: past CABG and TV/MV repair. clinically stable 7. HTN: controlled 9. DM2: per PCP 10. Pulmonary HTN 11. Hx of PE: unclear when she was taken off eliquis 12. Diarrhea: gastroenteritis? better. which started after going to a at [place]. per PCP 13. PAFIB: device interrogation revealed paroxysms of 2:1 atrial flutter with significant duration with RVR on 04/11/2021 Recommendation 1. Lasix therapy, IV hydrate if PO intake is poor. Kayexelate. BMP this afternoon 2. No ACEi/ARB for now. Avoid nephrotoxins. . 3. Continue with secondary prevention. Will convert to toprol from coreg if continues to be wheezy 4. x1 Solumedrol, albuterol 5. LImited TTE to check EF. Check UA 6. Start on amiodarone and low dose eliquis KELLY HENNING MD 04/14/212006: CARDIAC CONSULT ASSESSMENT/PLAN ASSESSMENT/PLAN Patient seen and examined. Agree with [employer]'s assessment and plan as stated above. 2D echo showed EF 20-25% Device interrogation showed atrial flutter with RVR Agree with amiodarone and eliquis Thank you for your consultation KINGSTON COREA APRN Apr 14, 2021 12:01 KELLY HENNING MD Apr 14, 2021 20:07
[2021-04-14 15:00] VITALS: BP 119/73
[2021-04-14 15:16] LABS: BILIRUBIN,URINE NEGATIVE (NEG); COLOR,URINE YELLOW; NITRITE,URINE NEGATIVE (NEG); PROTEIN,URINE 30 mg/dL (NEG-TRACE); UROBILINOGEN,URINE 0.2 mg/dL (0.2 mg/dL)
[2021-04-14 15:24] LABS: CLARITY,URINE HAZY
[2021-04-14 15:25] LABS: HYALINE CASTS, URINE MODERATE /HPF
[2021-04-14 15:27] LABS: BACTERIA,URINE FEW /HPF (0-FEW); WBC,URINE TNTC /HPF (0-4)
[2021-04-14 16:10] LABS: CALCIUM 8.7 mg/dL (8.5-10.1); GFR 29.2
[2021-04-14] MEDS: CARVEDILOL 12.5 MG TABLET. PO SCH (17:31)
[2021-04-14] MEDS ORDERED: IV DEXTROSE 5% 250 ML BAG. IV PRN (17:45)
[2021-04-14] MEDS ORDERED: DEXTROSE 50% 25 GM / 50ML DISP.SYRIN. IV PRN (17:45)
[2021-04-14] MEDS: INSULIN LISPRO 300 UNITS/3 ML VIAL. SQ SCH (17:54)
--- NOTE | 2021-04-14 18:50 | CARD ---
MR#: [id number] Date of Study: 04/14/2021 Ordering Physician: KINGSTON COREA, Referring Physician: KINGSTON COREA, Tech: Elo Lonnie, [facility] APPROVED REPORT EXAM: Two-dimensional and M-mode echocardiogram with Doppler and color Doppler. Other Information Quality : AverageHR: 83bpm INDICATION Dyspnea Cardiomyopathy LV Function:SystolicDiastolic Surgery/Intervention Pacemaker: Date: 2009 RISK FACTORS Hypertension Hyperlipidemia Diabetes 2D DIMENSIONS Left Atrium(2D)3.7 (1.6-4.0cm)IVSd0.9 (0.7-1.1cm) Aortic Root(2D)2.9 (2.0-3.7cm)LVDd5.4 (3.9-5.9cm) LVOT Diameter2.0 (1.8-2.4cm)PWd1.1 (0.7-1.1cm) LVDs4.7 (2.5-4.0cm)FS (%) 13.7 % SV41.2 ml Tricuspid Valve TR P. [id number] [id number] TR Peak [id number] LEFT VENTRICLE The left ventricle is normal size. There is borderline concentric left ventricular hypertrophy. The s ystolic function is severely impaired. The Ejection Fraction is 20-25%. There is severe global hypoki nesis of the left ventricle. RIGHT VENTRICLE The right ventricle is mildly dilated. There is normal right ventricular wall thickness. Systolic fun ction is mildly reduced. There is a device lead in the right ventricle. ATRIA The left atrium size is normal. The right atrium is mildly dilated. The interatrial septum is intact with no evidence for an atrial septal defect or patent foramen ovale as noted on 2-D or Doppler imagi ng. AORTIC VALVE The aortic valve is normal in structure and function. Doppler and color-flow analysis was not perform ed. There is no significant aortic valvular stenosis. MITRAL VALVE The mitral valve is mildly thickened. There is no evidence of mitral valve prolapse. There is no mitr al valve stenosis. Doppler and color-flow analysis was not performed. TRICUSPID VALVE The tricuspid valve is normal in structure and function. Doppler and Color Flow revealed mild tricusp id regurgitation with an estimated PAP of 45 mmHg. There is no tricuspid valve stenosis. PULMONIC VALVE The pulmonic valve is not visualized. Doppler and color-flow analysis was not performed. GREAT VESSELS The aortic root is normal in size. The IVC is normal in size and collapses >50% with inspiration. PERICARDIAL EFFUSION There is no evidence of significant pericardial effusion. Critical Notification Critical Value: No <Conclusion> The left ventricle is normal size. The systolic function is severely impaired. The Ejection Fraction is 20-25%. There is severe global hypokinesis of the left ventricle. There is borderline concentric left ventricular hypertrophy. There is a device lead in the right ventricle. Doppler and color-flow analysis of the aortic valve was not performed. There is no significant aortic valvular stenosis. Doppler and color-flow analysis of the mitral valve was not performed. Doppler and Color Flow revealed mild tricuspid regurgitation with an estimated PAP of 45 mmHg. Signed by : Oscar Rivas MD Electronically Approved : 04/14/2021 18:49:27
[2021-04-14 19:00] VITALS: BP 121/64
[2021-04-14] MEDS: methylPREDNISolone SOD SUCC PF 40 MG/ML VIAL. IV SCH (20:46)
[2021-04-14] MEDS: APIXABAN 2.5 MG TABLET. PO SCH (20:47)
[2021-04-14] MEDS: ATORVASTATIN CALCIUM 20 MG TABLET PO SCH (20:47)
[2021-04-14] MEDS: AMIODARONE HCL 200 MG TABLET. PO SCH (20:47)
[2021-04-14 23:00] VITALS: BP 126/63
[2021-04-15] VITALS (7 sets, daily range): BP systolic 93–124; BP diastolic 51–73
[2021-04-15 03:46] LABS: BASO % 0 % (0-3); EOS % 0 % (0-3); HEMATOCRIT 35.7 % (36.0-47.0); HEMOGLOBIN 11.5 g/dL (12.0-15.5); LYMPH # 0.4 x10^3/uL (1.0-4.8); LYMPH % 7 % (24-48); MEAN CORPUSCULAR HEMOGLOBIN 28 pg (25-35); MEAN CORPUSCULAR HGB CONC 32 g/dL (31-37); MEAN CORPUSCULAR VOLUME 88 fL (79-100); MONO # 0.1 x10^3/uL (0.0-1.1); MONO % 2 % (0-9); NEUT # 5.7 x10^3/uL (1.8-7.7); NEUT % 92 % (31-73); PLATELET COUNT 157 x10^3/uL (140-400); RED BLOOD COUNT 4.07 x10^6/uL (3.50-5.40); RED CELL DISTRIBUTION WIDTH 17.7 % (11.5-14.5); WHITE BLOOD COUNT 6.2 x10^3/uL (4.0-11.0)
[2021-04-15 04:34] LABS: CALCIUM 8.2 mg/dL (8.5-10.1); GFR 29.2; POTASSIUM 5.2 mmol/L (3.5-5.1)
[2021-04-15] MEDS: IPRATRPIUM/ALBUTEROL 0.5/2.5MG 3 ML NEBU. NEB SCH ×4 (07:36→20:59)
[2021-04-15] MEDS ORDERED: ASPIRIN ENTERIC COATED 81 MG TABLET.DR. PO SCH (08:00)
[2021-04-15] MEDS: APIXABAN 2.5 MG TABLET. PO SCH ×2 (08:14→20:59)
[2021-04-15] MEDS: CARVEDILOL 12.5 MG TABLET. PO SCH (08:14)
[2021-04-15] MEDS: PANTOPRAZOLE 40 MG TABLET.DR. PO SCH (08:14)
[2021-04-15] MEDS: BUMETANIDE 1 MG TABLET. PO SCH (08:14)
[2021-04-15] MEDS: AMIODARONE HCL 200 MG TABLET. PO SCH ×2 (08:14→20:56)
[2021-04-15] MEDS: methylPREDNISolone SOD SUCC PF 40 MG/ML VIAL. IV SCH ×2 (08:15→20:56)
[2021-04-15] MEDS: INSULIN LISPRO 300 UNITS/3 ML VIAL. SQ SCH ×3 (08:22→17:43)
[2021-04-15] MEDS ORDERED: FUROSEMIDE 40 MG TABLET. PO SCH (09:00)
--- NOTE | 2021-04-15 10:22 | PDOC ---
[employer] PROGRESS NOTE Date of Service DOS: DATE: 04/15/21 TIME: 10:20 Chief Complaint Chief Complaint Shortness of breath Chronic renal insufficiency Asthma CHF Diabetes mellitus Hypertension Hyperlipidemia Coronary artery disease Coronary artery bypass surgery Hysterectomy Pacemaker Valve repair x 2 AICD Previous tobacco abuse. History of Present Illness History of Present Illness 04/15/2021 Patient seen and examined bedside Appeared to be feeling better today Was able to walk several laps around the halls Chart reviewed Discussed w RN 04/14/2021 Patient was seen and examined laying in bed Discussed treatment for acute CHF exacerbation and renal failure Waiting on nephrology and cardiology consult regarding starting lasix Case discussed with RN Chart reviewed Vitals/I&O Vitals/I&O: Vital Signs Date Time Temp Pulse Resp B/P (MAP) Pulse Ox O2 Delivery O2 Flow Rate FiO2 04/15/21 08:14 81 118/62 04/15/21 08:00 Nasal Cannula 2.0 04/15/21 07:36 100 04/15/21 07:00 97.4 21 97.4 I & O 04/14/21 04/14/21 04/15/21 15:00 23:00 07:00 Intake Total 240 ml Balance 240 ml Physical Exam General: Alert, Oriented X3, Cooperative, No acute distress Heart: Regular rate (SR), Normal S1, Normal S2, Other (3/6 systolic murmur to LLS border) Lungs: Crackles Abdomen: Soft, No tenderness Extremities: No cyanosis, No edema Skin: No breakdown, No significant lesion Labs Labs: Laboratory Tests Test 04/14/21 11:53 04/14/21 14:50 04/14/21 15:33 04/14/21 16:40 Glucose (Fingerstick) 157 mg/dL (70-99) 272 mg/dL (70-99) Urine Collection Type Unknown Urine Color Yellow Urine Clarity Hazy Urine pH 5.0 (<5.0-8.0) Urine Specific [place] 1.020 (1.000-1.030) Urine Protein 30 mg/dL (NEG-TRACE) Urine Glucose (UA) Negative mg/dL (NEG) Urine Ketones (Stick) Trace mg/dL (NEG) Urine Blood Moderate (NEG) Urine Nitrite Negative (NEG) Urine Bilirubin Negative (NEG) Urine Urobilinogen Dipstick 0.2 mg/dL (0.2 mg/dL) Urine Leukocyte Esterase Large (NEG) Urine RBC 3-5 /HPF (0-2) Urine WBC Tntc /HPF (0-4) Urine Squamous Epithelial Cells Mod /LPF Urine Bacteria Few /HPF (0-FEW) Urine Hyaline Casts Moderate /HPF Urine Mucus Slight /LPF Sodium Level 144 mmol/L (136-145) Potassium Level 5.0 mmol/L (3.5-5.1) Chloride Level 110 mmol/L (98-107) Carbon Dioxide Level 21 mmol/L (21-32) Anion Gap 13 (6-14) Blood Urea Nitrogen 57 mg/dL (7-20) Creatinine 2.0 mg/dL (0.6-1.0) Estimated GFR (Cockcroft-Gault) 29.2 Glucose Level 219 mg/dL (70-99) Calcium Level 8.7 mg/dL (8.5-10.1) Test 04/14/21 19:28 04/15/21 02:45 04/15/21 07:59 Glucose (Fingerstick) 230 mg/dL (70-99) 198 mg/dL (70-99) White Blood Count 6.2 x10^3/uL (4.0-11.0) Red Blood Count 4.07 x10^6/uL (3.50-5.40) Hemoglobin 11.5 g/dL (12.0-15.5) Hematocrit 35.7 % (36.0-47.0) Mean Corpuscular Volume 88 fL (79-100) Mean Corpuscular Hemoglobin 28 pg (25-35) Mean Corpuscular Hemoglobin Concent 32 g/dL (31-37) Red Cell Distribution Width 17.7 % (11.5-14.5) Platelet Count 157 x10^3/uL (140-400) Neutrophils (%) (Auto) 92 % (31-73) Lymphocytes (%) (Auto) 7 % (24-48) Monocytes (%) (Auto) 2 % (0-9) Eosinophils (%) (Auto) 0 % (0-3) Basophils (%) (Auto) 0 % (0-3) Neutrophils # (Auto) 5.7 x10^3/uL (1.8-7.7) Lymphocytes # (Auto) 0.4 x10^3/uL (1.0-4.8) Monocytes # (Auto) 0.1 x10^3/uL (0.0-1.1) Eosinophils # (Auto) 0.0 x10^3/uL (0.0-0.7) Basophils # (Auto) 0.0 x10^3/uL (0.0-0.2) Sodium Level 142 mmol/L (136-145) Potassium Level 5.2 mmol/L (3.5-5.1) Chloride Level 110 mmol/L (98-107) Carbon Dioxide Level 22 mmol/L (21-32) Anion Gap 10 (6-14) Blood Urea Nitrogen 59 mg/dL (7-20) Creatinine 2.0 mg/dL (0.6-1.0) Estimated GFR (Cockcroft-Gault) 29.2 Glucose Level 236 mg/dL (70-99) Calcium Level 8.2 mg/dL (8.5-10.1) Assessment and Plan Assessmemt and Plan Problems Medical Problems: (1) Acute asthma flare Status: Acute (2) Acute on chronic renal insufficiency Status: Acute (3) CHF exacerbation Status: Acute Assessment Shortness of breath Chronic renal insufficiency Asthma CHF Diabetes mellitus Hypertension Hyperlipidemia Coronary artery disease Coronary artery bypass surgery Hysterectomy Pacemaker Valve repair x 2 AICD Previous tobacco abuse. Acute on chronic systolic and diastolic heart failure Acute on chronic renal failure Hyperkalemia Debility Plan Appreciate Cardiology and Nephrology input Continue Lasix Cont amiodarone and eliquis Avoid nephrotoxic medications Continue Home meds Hopeful d/c tomorrow Deep venous thrombosis prophylaxis Full code Trend labs PT, OT. Per nephrology recommendations please see the following and we certainly agree and appreciate their input; IMP HYPERKALEMIA-BETTER KAMALJIT WITH CR OF 2.0 CKD STAGE 3B WITH BASELINE CR OF 1.5 ACUTE ON CHRONIC DIASTOLIC AND SYSTOLIC CHF HX OF HTN HX OF CAD CM WITH EF OF 25% UTI PLAN CONT DIURETICS SUPPLEMENTAL OXYGEN NEEDED CARDIOLOGY EVALUATION ANTIBIOTICS LABS IN AM WILL FOLLOW Comment Review of Relevant I have reviewed the following items deirdre (where applicable) has been applied. Medications: Current Medications Medications (Trade) Dose Ordered Sig/Jeremy Route PRN Reason Start Time Stop Time Status Last Admin Dose Admin Furosemide (Lasix) 20 mg 1X ONCE IVP 04/14/21 11:30 04/14/21 11:31 DC 04/14/21 12:53 Methylprednisolone Sodium Succinate (SOLU-Medrol 125MG VIAL) 125 mg 1X ONCE IV 04/14/21 11:45 04/14/21 11:46 DC 04/14/21 12:52 Atorvastatin Calcium (Lipitor) 20 mg HS PO 04/14/21 21:00 04/14/21 20:47 Bumetanide (Bumex) 1 mg DAILY PO 04/15/21 09:00 04/15/21 08:14 Carvedilol (Coreg) 12.5 mg BIDWMEALS PO 04/14/21 17:00 04/15/21 08:14 Pantoprazole Sodium (Protonix) 40 mg DAILYAC PO 04/15/21 07:30 04/15/21 08:14 Amiodarone HCl (Cordarone) 200 mg BID PO 04/14/21 21:00 04/15/21 08:14 Apixaban (Eliquis) 2.5 mg BID PO 04/14/21 21:00 04/15/21 08:14 Insulin Human Lispro (HumaLOG) 0-7 UNITS TIDWMEALS SQ 04/14/21 17:45 04/15/21 08:22 Methylprednisolone Sodium Succinate (SOLU-Medrol 40MG VIAL) 40 mg BID IV 04/14/21 21:00 04/15/21 08:15 Justifications for Admission Other Justification BREEZY NDIAYE III DO Apr 15, 2021 10:22
--- NOTE | 2021-04-15 10:50 | PDOC ---
Renal-Progress Notes Subjective Notes Notes FEELING BETTER History of Present Illness Hx of present illness STABLE Vitals Vitals Vital Signs Date Time Temp Pulse Resp B/P (MAP) Pulse Ox O2 Delivery O2 Flow Rate FiO2 04/15/21 08:14 81 118/62 04/15/21 08:00 Nasal Cannula 2.0 04/15/21 07:36 100 04/15/21 07:00 97.4 21 97.4 Weight Weight [ ] I.O. Intake and Output Intake and Output 04/15/21 07:00 Intake Total 240 ml Balance 240 ml Intake Oral 240 ml # Voids 1 Labs Labs Laboratory Tests Test 04/14/21 11:53 04/14/21 14:50 04/14/21 15:33 04/14/21 16:40 Glucose (Fingerstick) 157 mg/dL (70-99) 272 mg/dL (70-99) Urine Collection Type Unknown Urine Color Yellow Urine Clarity Hazy Urine pH 5.0 (<5.0-8.0) Urine Specific [place] 1.020 (1.000-1.030) Urine Protein 30 mg/dL (NEG-TRACE) Urine Glucose (UA) Negative mg/dL (NEG) Urine Ketones (Stick) Trace mg/dL (NEG) Urine Blood Moderate (NEG) Urine Nitrite Negative (NEG) Urine Bilirubin Negative (NEG) Urine Urobilinogen Dipstick 0.2 mg/dL (0.2 mg/dL) Urine Leukocyte Esterase Large (NEG) Urine RBC 3-5 /HPF (0-2) Urine WBC Tntc /HPF (0-4) Urine Squamous Epithelial Cells Mod /LPF Urine Bacteria Few /HPF (0-FEW) Urine Hyaline Casts Moderate /HPF Urine Mucus Slight /LPF Sodium Level 144 mmol/L (136-145) Potassium Level 5.0 mmol/L (3.5-5.1) Chloride Level 110 mmol/L (98-107) Carbon Dioxide Level 21 mmol/L (21-32) Anion Gap 13 (6-14) Blood Urea Nitrogen 57 mg/dL (7-20) Creatinine 2.0 mg/dL (0.6-1.0) Estimated GFR (Cockcroft-Gault) 29.2 Glucose Level 219 mg/dL (70-99) Calcium Level 8.7 mg/dL (8.5-10.1) Test 04/14/21 19:28 04/15/21 02:45 04/15/21 07:59 Glucose (Fingerstick) 230 mg/dL (70-99) 198 mg/dL (70-99) White Blood Count 6.2 x10^3/uL (4.0-11.0) Red Blood Count 4.07 x10^6/uL (3.50-5.40) Hemoglobin 11.5 g/dL (12.0-15.5) Hematocrit 35.7 % (36.0-47.0) Mean Corpuscular Volume 88 fL (79-100) Mean Corpuscular Hemoglobin 28 pg (25-35) Mean Corpuscular Hemoglobin Concent 32 g/dL (31-37) Red Cell Distribution Width 17.7 % (11.5-14.5) Platelet Count 157 x10^3/uL (140-400) Neutrophils (%) (Auto) 92 % (31-73) Lymphocytes (%) (Auto) 7 % (24-48) Monocytes (%) (Auto) 2 % (0-9) Eosinophils (%) (Auto) 0 % (0-3) Basophils (%) (Auto) 0 % (0-3) Neutrophils # (Auto) 5.7 x10^3/uL (1.8-7.7) Lymphocytes # (Auto) 0.4 x10^3/uL (1.0-4.8) Monocytes # (Auto) 0.1 x10^3/uL (0.0-1.1) Eosinophils # (Auto) 0.0 x10^3/uL (0.0-0.7) Basophils # (Auto) 0.0 x10^3/uL (0.0-0.2) Sodium Level 142 mmol/L (136-145) Potassium Level 5.2 mmol/L (3.5-5.1) Chloride Level 110 mmol/L (98-107) Carbon Dioxide Level 22 mmol/L (21-32) Anion Gap 10 (6-14) Blood Urea Nitrogen 59 mg/dL (7-20) Creatinine 2.0 mg/dL (0.6-1.0) Estimated GFR (Cockcroft-Gault) 29.2 Glucose Level 236 mg/dL (70-99) Calcium Level 8.2 mg/dL (8.5-10.1) Review of Systems Constitutional: yes: alert Ears/Nose/Throat: Yes: no symptom reported Eyes: Yes: no symptom reported Pulmonary: Yes dyspnea Cardiovascular: Yes no symptom reported Gastrointestional: Yes: no symptom reported Genitourinary: Yes: no symptom reported Musculoskeletal: Yes: no symptom reported Skin: Yes no symptom reported Psychiatric/Neurological: Yes: no symptom reported Physical Exam General Appearance: no apparent distress Skin: warm Respiratory: bilateral CTA Heart: S1S2 Abdomen: soft, bowel sounds present Genitourinary: bladder flat Extremities: pulses present Neurology: alert, oriented Musculoskeletal: Osteoarthritis Assessment Assessment IMP HYPERKALEMIA-BETTER KAMALJIT WITH CR OF 2.0 CKD STAGE 3B WITH BASELINE CR OF 1.5 ACUTE ON CHRONIC DIASTOLIC AND SYSTOLIC CHF HX OF HTN HX OF CAD CM WITH EF OF 25% UTI PLAN CONT DIURETICS SUPPLEMENTAL OXYGEN NEEDED CARDIOLOGY EVALUATION ANTIBIOTICS LABS IN AM WILL FOLLOW EMILY NAYLOR MD Apr 15, 2021 10:50
--- NOTE | 2021-04-15 11:37 | NUR ---
SW following. Discussed with RN, pt from home with , 2L (does not use oxygen at home), ada diet, COVID-19 negative. Cardiology and Nephrology following. Per RN pt walked well with therapy, plan for home upon discharge. SW will continue to follow.
--- NOTE | 2021-04-15 11:51 | PDOC ---
KINGSTON COREA PLYWOOD STOCK GRADER 04/15/21 1151: CARDIO Progress Notes Date and Time Date of Service 04/15/2021 Time of Evaluation 1145 Subjective Subjective: No Chest Pain, No Palpitations, Other (SOA better) Vitals Vitals Vital Signs Date Time Temp Pulse Resp B/P (MAP) Pulse Ox O2 Delivery O2 Flow Rate FiO2 04/15/21 11:45 100 Nasal Cannula 1.5 04/15/21 11:00 97.5 77 20 93/51 (65) 97.5 Weight Weight [ ] Input and Output Intake and Output Intake and Output 04/15/21 07:00 Intake Total 240 ml Balance 240 ml Intake Oral 240 ml # Voids 1 Laboratory Labs Laboratory Tests Test 04/14/21 11:53 04/14/21 14:50 04/14/21 15:33 04/14/21 16:40 Glucose (Fingerstick) 157 mg/dL (70-99) 272 mg/dL (70-99) Urine Collection Type Unknown Urine Color Yellow Urine Clarity Hazy Urine pH 5.0 (<5.0-8.0) Urine Specific [place] 1.020 (1.000-1.030) Urine Protein 30 mg/dL (NEG-TRACE) Urine Glucose (UA) Negative mg/dL (NEG) Urine Ketones (Stick) Trace mg/dL (NEG) Urine Blood Moderate (NEG) Urine Nitrite Negative (NEG) Urine Bilirubin Negative (NEG) Urine Urobilinogen Dipstick 0.2 mg/dL (0.2 mg/dL) Urine Leukocyte Esterase Large (NEG) Urine RBC 3-5 /HPF (0-2) Urine WBC Tntc /HPF (0-4) Urine Squamous Epithelial Cells Mod /LPF Urine Bacteria Few /HPF (0-FEW) Urine Hyaline Casts Moderate /HPF Urine Mucus Slight /LPF Sodium Level 144 mmol/L (136-145) Potassium Level 5.0 mmol/L (3.5-5.1) Chloride Level 110 mmol/L (98-107) Carbon Dioxide Level 21 mmol/L (21-32) Anion Gap 13 (6-14) Blood Urea Nitrogen 57 mg/dL (7-20) Creatinine 2.0 mg/dL (0.6-1.0) Estimated GFR (Cockcroft-Gault) 29.2 Glucose Level 219 mg/dL (70-99) Calcium Level 8.7 mg/dL (8.5-10.1) Test 04/14/21 19:28 04/15/21 02:45 04/15/21 07:59 04/15/21 11:05 Glucose (Fingerstick) 230 mg/dL (70-99) 198 mg/dL (70-99) 203 mg/dL (70-99) White Blood Count 6.2 x10^3/uL (4.0-11.0) Red Blood Count 4.07 x10^6/uL (3.50-5.40) Hemoglobin 11.5 g/dL (12.0-15.5) Hematocrit 35.7 % (36.0-47.0) Mean Corpuscular Volume 88 fL (79-100) Mean Corpuscular Hemoglobin 28 pg (25-35) Mean Corpuscular Hemoglobin Concent 32 g/dL (31-37) Red Cell Distribution Width 17.7 % (11.5-14.5) Platelet Count 157 x10^3/uL (140-400) Neutrophils (%) (Auto) 92 % (31-73) Lymphocytes (%) (Auto) 7 % (24-48) Monocytes (%) (Auto) 2 % (0-9) Eosinophils (%) (Auto) 0 % (0-3) Basophils (%) (Auto) 0 % (0-3) Neutrophils # (Auto) 5.7 x10^3/uL (1.8-7.7) Lymphocytes # (Auto) 0.4 x10^3/uL (1.0-4.8) Monocytes # (Auto) 0.1 x10^3/uL (0.0-1.1) Eosinophils # (Auto) 0.0 x10^3/uL (0.0-0.7) Basophils # (Auto) 0.0 x10^3/uL (0.0-0.2) Sodium Level 142 mmol/L (136-145) Potassium Level 5.2 mmol/L (3.5-5.1) Chloride Level 110 mmol/L (98-107) Carbon Dioxide Level 22 mmol/L (21-32) Anion Gap 10 (6-14) Blood Urea Nitrogen 59 mg/dL (7-20) Creatinine 2.0 mg/dL (0.6-1.0) Estimated GFR (Cockcroft-Gault) 29.2 Glucose Level 236 mg/dL (70-99) Calcium Level 8.2 mg/dL (8.5-10.1) Review of Systems Constitutional: yes: alert Ears/Nose/Throat: Yes: no symptom reported Eyes: Yes: no symptom reported Pulmonary: Yes dyspnea Cardiovascular: Yes no symptom reported Gastrointestional: Yes: no symptom reported Genitourinary: Yes: no symptom reported Musculoskeletal: Yes: no symptom reported Skin: Yes no symptom reported Psychiatric/Neurological: Yes: no symptom reported Physical Exam HEENT: Neck Supple W Full Motion Chest: Symmetric LUNGS: Other (diffuse expiratory wheeze) Heart: RRR (SR) Abdomen: Soft N/T Extremities: Other (1+ bilateral LE pitting edema) Neurology: alert, oriented, follow commands Assessment Assessment 1. Acute on chronic systolic CHF: does not appear to be significant overloaded. No peripheral edema nor pleural effusion and currently at her baseline wt at 61 KG 2. Asthma exacerbation: per PCP 3. Hx of ICM with AICD: medtronic, no optivol capability on this device. EF at 25% 4. KAMALJIT on CKD3 with hyperkalemia: prerenal with poor hydration and reported watery stools since Sunday 5. CAD/valvular disease: past CABG and TV/MV repair. clinically stable 7. HTN: controlled 9. DM2: per PCP 10. Pulmonary HTN 11. Hx of PE: unclear when she was taken off eliquis 12. Diarrhea: gastroenteritis? better. which started after going to a in [place]. per PCP 13. PAFIB: device interrogation revealed paroxysms of 2:1 atrial flutter with significant duration with RVR on 04/11/2021. Maintaining SR. brief burst today 14. Possible UTI: per PCP Recommendation 1. Bumex therapy, extra dose dose today 2. No ACEi/ARB for now. Avoid nephrotoxins. . 3. Continue with secondary prevention. Change coreg to toprol 4. Continue HF optimization per GDMT 5. Start on amiodarone and low dose eliquis Justicifation of Admission Dx: Justifications for Admission: Justification of Admission Dx: N/A KELLY HENNING MD 04/15/21 1452: CARDIO Progress Notes Assessment Assessment Patient seen and examined. Agree with CERAMICS MACHINE OPERATOR's assessment and plan. Continue diuresis for acute on chronic systolic heart failure. CAD S/P CABG and TV/MVR clinically stable Continue amiodarone and Eliquis for paroxysmal atrial flutter noted on device interrogation. KINGSTON COREA APRN Apr 15, 2021 11:51 KELLY HENNING MD Apr 15, 2021 14:52
[2021-04-15] MEDS: cefTRIAXone IV Push 1 GM VIAL. IVP SCH (12:42)
[2021-04-15] MEDS ORDERED: BUMETANIDE 1 MG TABLET. PO ONE (13:00)
[2021-04-15] MEDS: METOPROLOL SUCC 24HR ER 50 MG TAB.ER.24H. PO SCH (16:40)
[2021-04-15] MEDS: BENZOCAINE/MENTHOL LOZENGE. PO PRN ×2 (18:41→20:55)
[2021-04-15] MEDS: ATORVASTATIN CALCIUM 20 MG TABLET PO SCH (20:55)
[2021-04-15] MEDS: ASPIRIN ENTERIC COATED 81 MG TABLET.DR. PO SCH (20:56)
[2021-04-16 03:00] VITALS: BP 117/69
[2021-04-16 07:00] VITALS: BP 116/58
[2021-04-16 07:25] LABS: BASO % 0 % (0-3); EOS % 0 % (0-3); HEMATOCRIT 36.4 % (36.0-47.0); HEMOGLOBIN 11.6 g/dL (12.0-15.5); LYMPH # 0.4 x10^3/uL (1.0-4.8); LYMPH % 3 % (24-48); MEAN CORPUSCULAR HEMOGLOBIN 28 pg (25-35); MEAN CORPUSCULAR HGB CONC 32 g/dL (31-37); MEAN CORPUSCULAR VOLUME 88 fL (79-100); MONO # 0.4 x10^3/uL (0.0-1.1); MONO % 3 % (0-9); NEUT # 11.5 x10^3/uL (1.8-7.7); NEUT % 94 % (31-73); PLATELET COUNT 173 x10^3/uL (140-400); RED BLOOD COUNT 4.13 x10^6/uL (3.50-5.40); RED CELL DISTRIBUTION WIDTH 17.3 % (11.5-14.5); WHITE BLOOD COUNT 12.2 x10^3/uL (4.0-11.0)
[2021-04-16] MEDS: IPRATRPIUM/ALBUTEROL 0.5/2.5MG 3 ML NEBU. NEB SCH ×4 (07:29→19:55)
[2021-04-16 07:35] LABS: CALCIUM 8.4 mg/dL (8.5-10.1); CREATININE 2.2 mg/dL (0.6-1.0); GFR 26.2; MAGNESIUM 2.2 mg/dL (1.8-2.4); POTASSIUM 5.5 mmol/L (3.5-5.1)
[2021-04-16] MEDS: APIXABAN 2.5 MG TABLET. PO SCH ×2 (09:58→20:39)
[2021-04-16] MEDS: PANTOPRAZOLE 40 MG TABLET.DR. PO SCH (09:58)
[2021-04-16] MEDS: METOPROLOL SUCC 24HR ER 50 MG TAB.ER.24H. PO SCH (09:58)
[2021-04-16] MEDS: BUMETANIDE 1 MG TABLET. PO SCH (09:59)
[2021-04-16] MEDS: AMIODARONE HCL 200 MG TABLET. PO SCH ×2 (09:59→20:39)
[2021-04-16] MEDS: methylPREDNISolone SOD SUCC PF 40 MG/ML VIAL. IV SCH (10:00)
[2021-04-16] MEDS: INSULIN LISPRO 300 UNITS/3 ML VIAL. SQ SCH ×3 (10:10→16:59)
[2021-04-16 11:00] VITALS: BP 113/62
--- NOTE | 2021-04-16 11:14 | PDOC ---
Renal-Progress Notes Subjective Notes Notes OVERALL SOB BETTER History of Present Illness Hx of present illness STABLE Vitals Vitals Vital Signs Date Time Temp Pulse Resp B/P (MAP) Pulse Ox O2 Delivery O2 Flow Rate FiO2 04/16/21 09:59 87 116/58 04/16/21 07:29 100 Nasal Cannula 1.0 04/16/21 07:00 97.5 17 97.5 Weight Weight [ ] I.O. Intake and Output Intake and Output 04/16/21 07:00 Intake Total 900 ml Output Total 300 ml Balance 600 ml Intake Oral 900 ml Output Urine Total 300 ml Labs Labs Laboratory Tests Test 04/15/21 16:58 04/15/21 19:50 04/16/21 06:50 04/16/21 08:17 Glucose (Fingerstick) 161 mg/dL (70-99) 159 mg/dL (70-99) 165 mg/dL (70-99) White Blood Count 12.2 x10^3/uL (4.0-11.0) Red Blood Count 4.13 x10^6/uL (3.50-5.40) Hemoglobin 11.6 g/dL (12.0-15.5) Hematocrit 36.4 % (36.0-47.0) Mean Corpuscular Volume 88 fL (79-100) Mean Corpuscular Hemoglobin 28 pg (25-35) Mean Corpuscular Hemoglobin Concent 32 g/dL (31-37) Red Cell Distribution Width 17.3 % (11.5-14.5) Platelet Count 173 x10^3/uL (140-400) Neutrophils (%) (Auto) 94 % (31-73) Lymphocytes (%) (Auto) 3 % (24-48) Monocytes (%) (Auto) 3 % (0-9) Eosinophils (%) (Auto) 0 % (0-3) Basophils (%) (Auto) 0 % (0-3) Neutrophils # (Auto) 11.5 x10^3/uL (1.8-7.7) Lymphocytes # (Auto) 0.4 x10^3/uL (1.0-4.8) Monocytes # (Auto) 0.4 x10^3/uL (0.0-1.1) Eosinophils # (Auto) 0.0 x10^3/uL (0.0-0.7) Basophils # (Auto) 0.0 x10^3/uL (0.0-0.2) Sodium Level 143 mmol/L (136-145) Potassium Level 5.5 mmol/L (3.5-5.1) Chloride Level 107 mmol/L (98-107) Carbon Dioxide Level 24 mmol/L (21-32) Anion Gap 12 (6-14) Blood Urea Nitrogen 73 mg/dL (7-20) Creatinine 2.2 mg/dL (0.6-1.0) Estimated GFR (Cockcroft-Gault) 26.2 Glucose Level 181 mg/dL (70-99) Calcium Level 8.4 mg/dL (8.5-10.1) Magnesium Level 2.2 mg/dL (1.8-2.4) Review of Systems Constitutional: yes: alert Ears/Nose/Throat: Yes: no symptom reported Eyes: Yes: no symptom reported Pulmonary: Yes dyspnea Cardiovascular: Yes no symptom reported Gastrointestional: Yes: no symptom reported Genitourinary: Yes: no symptom reported Musculoskeletal: Yes: no symptom reported Skin: Yes no symptom reported Psychiatric/Neurological: Yes: no symptom reported Physical Exam General Appearance: no apparent distress Skin: warm Respiratory: bilateral CTA Heart: S1S2 Abdomen: soft, bowel sounds present Genitourinary: bladder flat Extremities: pulses present Neurology: alert, oriented, follow commands Musculoskeletal: Osteoarthritis Assessment Assessment IMP HYPERKALEMIA-BETTER KAMALJIT WITH CR OF 2.0 CKD STAGE 3B WITH BASELINE CR OF 1.5 ACUTE ON CHRONIC DIASTOLIC AND SYSTOLIC CHF HX OF HTN HX OF CAD CM WITH EF OF 25% UTI PLAN CONT DIURETICS KAYEXALATE TODAY SUPPLEMENTAL OXYGEN NEEDED CARDIOLOGY EVALUATION ANTIBIOTICS LABS IN AM WILL FOLLOW EMILY NAYLOR MD Apr 16, 2021 11:14
[2021-04-16] MEDS ORDERED: SODIUM POLYSTYRENE SULFON/SORB 15 GM/60 ML ORAL.SUSP. PO ONE (11:15)
[2021-04-16] MEDS: cefTRIAXone IV Push 1 GM VIAL. IVP SCH (12:00)
[2021-04-16] MEDS: ANTI-COAG MONITOR BY PHARMACY. MC PRN (13:09)
--- NOTE | 2021-04-16 13:40 | PDOC ---
GENERAL General: Patient examined chart reviewed today's hospital day two for this patient with acute hypoxia secondary to asthma exacerbation, acute on chronic systolic congestive heart failure, and acute on chronic stage III renal failure. Her urine cultures have resulted negative and chest x-ray is negative for acute infectious etiology. We will stop the antibiotic at this point. Appreciate subspecialty support. Patient tells me she is feeling better. We will decrease her steroids hoping to avoid high dose given her hyperglycemia. We will continue to follow her closely clinically here on lower dose steroid. She has tested negative for Covid on a rapid swab. Is fully vaccinated boosted for Covid and vaccinated for influenza. No one is sick at home. We will continue current management otherwise and reassess in the morning. Time spent today is 3 0 minutes with greater than 50% in counseling and coordination of care most of which in discussion with patient regarding care plan and progress. Problems: (1) Asthma exacerbation (2) Acute on chronic renal insufficiency (3) CHF exacerbation VITAL SIGNS Vital Signs/I&O: Vital Signs Date Time Temp Pulse Resp B/P (MAP) Pulse Ox O2 Delivery O2 Flow Rate FiO2 04/16/21:22 99 Nasal Cannula 1.0 04/16/21 09:59 87 116/58 04/16/21 07:00 97.5 17 97.5 I & O 04/15/21 04/15/21 04/16/21 15:00 23:00 07:00 Intake Total 240 ml 540 ml 120 ml Output Total 300 ml Balance -60 ml 540 ml 120 ml In general patient is pleasant alert and oriented x3 no acute distress HEENT exam is unremarkable for acute abnormality Neck is soft and supple no adenopathy or thyromegaly noted Chest bilateral equal air entry though diminished throughout faint inspiratory and expiratory wheezes noted in the mid lung heller Heart S1-S2 normal regular rate and rhythm no murmurs or gallops are noted Abdomen soft nontender nondistended no masses organomegaly noted Extremity exam is unremarkable for acute abnormality ALLERGIES Allergies: Allergies Coded Allergies Type Severity Reaction Last Updated Verified No Known Drug Allergies 12/31/19 No MEDS Medications: Current Medications Medications (Trade) Dose Ordered Sig/Jeremy Start Time Stop Time Status Last Admin Dose Admin Albuterol Sulfate (Ventolin Hfa) 1 puff PRN Q4HRS PRN 04/13/21 20:15 04/14/21 00:55 Albuterol Sulfate (Ventolin Neb Soln) 2.5 mg PRN Q4HRS PRN 04/14/21 12:00 Albuterol/ Ipratropium (Duoneb) 3 ml RTQID 04/14/21 08:45 04/16/21 11:21 Amiodarone HCl (Cordarone) 200 mg BID 04/14/21 21:00 04/16/21 09:59 Apixaban (Eliquis) 2.5 mg BID 04/14/21 21:00 04/16/21 09:58 Aspirin (Ecotrin) 81 mg HS 04/15/21 21:00 04/15/21 20:56 Atorvastatin Calcium (Lipitor) 20 mg HS 04/14/21 21:00 04/15/21 20:55 Bumetanide (Bumex) 1 mg 1X ONCE 04/15/21 13:00 04/15/21 13:01 DC 04/15/21 12:42 Carvedilol (Coreg) 12.5 mg BIDWMEALS 04/14/21 17:00 04/15/21 12:18 DC 04/15/21 08:14 Ceftriaxone Sodium (Rocephin) 1 gm Q24H 04/15/21 12:00 04/16/21 12:00 Dextrose (Dextrose 50%-Water Syringe) 12.5 gm PRN Q15MIN PRN 04/14/21 17:45 Dextrose (Iv Dextrose 5%) 250 ml PRN Q15MIN PRN 04/14/21 17:45 Furosemide (Lasix) 40 mg DAILY 04/15/21 09:00 04/14/21 12:00 DC Info (Anti-Coagulation Monitoring By Pharmacy) 1 each PRN DAILY PRN 04/16/21 13:15 04/16/21 13:09 Insulin Glargine (Lantus Syringe) 10 unit QHS 04/16/21 21:00 Insulin Human Lispro (HumaLOG) 0-7 UNITS TIDWMEALS 04/14/21 17:45 04/16/21 12:00 Methylprednisolone Sodium Succinate (SOLU-Medrol 40MG VIAL) 40 mg BID 04/14/21 21:00 04/16/21 10:00 Methylprednisolone Sodium Succinate (SOLU-Medrol 125MG VIAL) 125 mg 1X ONCE 04/14/21 11:45 04/14/21 11:46 DC 04/14/21 12:52 Metoprolol Succinate (Toprol Xl) 50 mg DAILY 04/15/21 15:00 04/16/21 09:58 Pantoprazole Sodium (Protonix) 40 mg DAILYAC 04/15/21 07:30 04/16/21 09:58 Sodium Polystyrene Sulfonate (Kayexalate) 15 gm 1X ONCE 04/16/21 11:15 04/16/21 11:16 DC 04/16/21 11:15 Sodium Chloride 1,000 ml @ 75 mls/hr 1X ONCE 04/14/21 10:00 04/14/21 11:02 DC 04/14/21 10:39 Throat Lozenges (Cepacol Sore Throat Lozenge) 1 [place] PRN Q2HRS PRN 04/15/21 18:45 04/15/21 20:55 Current Medications Medications (Trade) Dose Ordered Sig/Jeremy Route PRN Reason Start Time Stop Time Status Last Admin Dose Admin Aspirin (Ecotrin) 81 mg HS PO 04/15/21 21:00 04/15/21 20:56 Metoprolol Succinate (Toprol Xl) 50 mg DAILY PO 04/15/21 15:00 04/16/21 09:58 Throat Lozenges (Cepacol Sore Throat Lozenge) 1 [place] PRN Q2HRS PRN PO SORE THROAT 04/15/21 18:45 04/15/21 20:55 Sodium Polystyrene Sulfonate (Kayexalate) 15 gm 1X ONCE PO 04/16/21 11:15 04/16/21 11:16 DC 04/16/21 11:15 Info (Anti-Coagulation Monitoring By Pharmacy) 1 each PRN DAILY PRN MC PER PROTOCOL 04/16/21 13:15 04/16/21 13:09 LAB Lab: Laboratory Tests Test 04/15/21 16:58 04/15/21 19:50 04/16/21 06:50 04/16/21 08:17 Glucose (Fingerstick) 161 mg/dL (70-99) H 159 mg/dL (70-99) H 165 mg/dL (70-99) H White Blood Count 12.2 x10^3/uL (4.0-11.0) H Red Blood Count 4.13 x10^6/uL (3.50-5.40) Hemoglobin 11.6 g/dL (12.0-15.5) L Hematocrit 36.4 % (36.0-47.0) Mean Corpuscular Volume 88 fL (79-100) Mean Corpuscular Hemoglobin 28 pg (25-35) Mean Corpuscular Hemoglobin Concent 32 g/dL (31-37) Red Cell Distribution Width 17.3 % (11.5-14.5) H Platelet Count 173 x10^3/uL (140-400) Neutrophils (%) (Auto) 94 % (31-73) H Lymphocytes (%) (Auto) 3 % (24-48) L Monocytes (%) (Auto) 3 % (0-9) Eosinophils (%) (Auto) 0 % (0-3) Basophils (%) (Auto) 0 % (0-3) Neutrophils # (Auto) 11.5 x10^3/uL (1.8-7.7) H Lymphocytes # (Auto) 0.4 x10^3/uL (1.0-4.8) L Monocytes # (Auto) 0.4 x10^3/uL (0.0-1.1) Eosinophils # (Auto) 0.0 x10^3/uL (0.0-0.7) Basophils # (Auto) 0.0 x10^3/uL (0.0-0.2) Sodium Level 143 mmol/L (136-145) Potassium Level 5.5 mmol/L (3.5-5.1) H Chloride Level 107 mmol/L (98-107) Carbon Dioxide Level 24 mmol/L (21-32) Anion Gap 12 (6-14) Blood Urea Nitrogen 73 mg/dL (7-20) H Creatinine 2.2 mg/dL (0.6-1.0) H Estimated GFR (Cockcroft-Gault) 26.2 Glucose Level 181 mg/dL (70-99) H Calcium Level 8.4 mg/dL (8.5-10.1) L Magnesium Level 2.2 mg/dL (1.8-2.4) Test 04/16/21 11:53 Glucose (Fingerstick) 272 mg/dL (70-99) H Laboratory Tests 04/16/21 06:50 Laboratory Tests 04/16/21 06:50 ASSESSMENT & PLAN A&P Plan as noted above This note was created using [employer] and may have omissions and/or errors due to the nature of real-time voice vial gauger. Justifications for Admission Other Justification DONTE VAZQUEZ MD Apr 16, 2021 13:40
[2021-04-16 15:00] VITALS: BP 102/51
--- NOTE | 2021-04-16 17:28 | PDOC ---
CARDIOLOGY PROGRESS NOTE SUBJECTIVE: No acute events overnight. The patient overall reports that she is stable. OBJECTIVE: Vital Signs/I&O: Vital Signs Date Time Temp Pulse Resp B/P (MAP) Pulse Ox O2 Delivery O2 Flow Rate FiO2 04/16/21 15:46 100 Nasal Cannula 1.0 04/16/21 11:00 97.3 79 18 113/62 (79) 97.3 I & O 04/15/21 04/15/21 04/16/21 15:00 23:00 07:00 Intake Total 240 ml 540 ml 120 ml Output Total 300 ml Balance -60 ml 540 ml 120 ml Objective: The patient appeared well nourished and normally developed. Head exam is unremarkable. No scleral icterus or corneal arcus noted. Neck is without jugular venous distension, thyromegaly, or carotid bruits. Carotid upstrokes are brisk bilaterally. Lungs are notable for decreased breath sounds. Cardiac exam reveals the PMI to be normally sized and situated. Rhythm is regular. First and second heart sounds normal. No murmurs, rubs or gallops. Abdominal exam reveals normal bowel sounds, no masses, no organomegaly and no aortic enlargement. Extremities are notable for 1+ edema. Msk: No traumua Neuro: No focal deficits Assessment 1. Acute on chronic systolic CHF: does not appear to be significant overloaded. No peripheral edema nor pleural effusion and currently at her baseline wt at 61 KG 2. Asthma exacerbation: per PCP 3. Hx of ICM with AICD: medtronic, no optivol capability on this device. EF at 25% 4. KAMALJIT on CKD3 with hyperkalemia: prerenal with poor hydration and reported watery stools since Sunday 5. CAD/valvular disease: past CABG and TV/MV repair. clinically stable 7. HTN: controlled 9. DM2: per PCP 10. Pulmonary HTN 11. Hx of PE: unclear when she was taken off eliquis 12. Diarrhea: gastroenteritis? better. which started after going to a in [place]. per PCP 13. PAFIB: device interrogation revealed paroxysms of 2:1 atrial flutter with significant duration with RVR on 04/11/2021. Maintaining SR. Recommendation 1. Bumex therapy 2. No ACEi/ARB for now. Avoid nephrotoxins. . 3. Continue with secondary prevention. Continue Toprol-XL 4. Continue HF optimization per GDMT 5. Continue amiodarone and low-dose Lasix 6. We will follow along. Await stabilization of renal function. Continue diuretics. CURRENT MEDICATIONS: Current Medications Medications (Trade) Dose Ordered Sig/Jeremy Route PRN Reason Start Time Stop Time Status Last Admin Dose Admin Aspirin (Ecotrin) 81 mg HS PO 04/15/21 21:00 04/15/21 20:56 Throat Lozenges (Cepacol Sore Throat Lozenge) 1 [place]kan PRN Q2HRS PRN PO SORE THROAT 04/15/21 18:45 04/15/21 20:55 Sodium Polystyrene Sulfonate (Kayexalate) 15 gm 1X ONCE PO 04/16/21 11:15 04/16/21 11:16 DC 04/16/21 11:15 Info (Anti-Coagulation Monitoring By Pharmacy) 1 each PRN DAILY PRN MC PER PROTOCOL 04/16/21 13:15 04/16/21 13:09 DIAGNOSTIC TESTING: Labs: Laboratory Tests 04/16/21 06:50 Laboratory Tests Test 04/15/21 19:50 04/16/21 06:50 04/16/21 08:17 04/16/21 11:53 Glucose (Fingerstick) 159 mg/dL (70-99) H 165 mg/dL (70-99) H 272 mg/dL (70-99) H White Blood Count 12.2 x10^3/uL (4.0-11.0) H Red Blood Count 4.13 x10^6/uL (3.50-5.40) Hemoglobin 11.6 g/dL (12.0-15.5) L Hematocrit 36.4 % (36.0-47.0) Mean Corpuscular Volume 88 fL (79-100) Mean Corpuscular Hemoglobin 28 pg (25-35) Mean Corpuscular Hemoglobin Concent 32 g/dL (31-37) Red Cell Distribution Width 17.3 % (11.5-14.5) H Platelet Count 173 x10^3/uL (140-400) Neutrophils (%) (Auto) 94 % (31-73) H Lymphocytes (%) (Auto) 3 % (24-48) L Monocytes (%) (Auto) 3 % (0-9) Eosinophils (%) (Auto) 0 % (0-3) Basophils (%) (Auto) 0 % (0-3) Neutrophils # (Auto) 11.5 x10^3/uL (1.8-7.7) H Lymphocytes # (Auto) 0.4 x10^3/uL (1.0-4.8) L Monocytes # (Auto) 0.4 x10^3/uL (0.0-1.1) Eosinophils # (Auto) 0.0 x10^3/uL (0.0-0.7) Basophils # (Auto) 0.0 x10^3/uL (0.0-0.2) Sodium Level 143 mmol/L (136-145) Potassium Level 5.5 mmol/L (3.5-5.1) H Chloride Level 107 mmol/L (98-107) Carbon Dioxide Level 24 mmol/L (21-32) Anion Gap 12 (6-14) Blood Urea Nitrogen 73 mg/dL (7-20) H Creatinine 2.2 mg/dL (0.6-1.0) H Estimated GFR (Cockcroft-Gault) 26.2 Glucose Level 181 mg/dL (70-99) H Calcium Level 8.4 mg/dL (8.5-10.1) L Test 04/16/21 16:29 Glucose (Fingerstick) 177 mg/dL (70-99) H Justicifation of Admission Dx: Justifications for Admission: Justification of Admission Dx: N/A GILA SALOMON MD Apr 16, 2021 17:28
[2021-04-16 19:00] VITALS: BP 117/66
[2021-04-16] MEDS: ATORVASTATIN CALCIUM 20 MG TABLET PO SCH (20:39)
[2021-04-16] MEDS: ASPIRIN ENTERIC COATED 81 MG TABLET.DR. PO SCH (20:39)
[2021-04-16] MEDS ORDERED: INSULIN GLARGINE SYRINGE. SQ SCH (21:00)
[2021-04-16 23:00] VITALS: BP 125/53
[2021-04-17 03:12] VITALS: BP 113/42
[2021-04-17 07:00] VITALS: BP 90/57
[2021-04-17] MEDS: IPRATRPIUM/ALBUTEROL 0.5/2.5MG 3 ML NEBU. NEB SCH ×3 (07:17→15:10)
[2021-04-17 07:52] LABS: BASO % 0 % (0-3); EOS % 0 % (0-3); HEMATOCRIT 35.7 % (36.0-47.0); HEMOGLOBIN 11.5 g/dL (12.0-15.5); LYMPH # 0.3 x10^3/uL (1.0-4.8); LYMPH % 2 % (24-48); MEAN CORPUSCULAR HEMOGLOBIN 28 pg (25-35); MEAN CORPUSCULAR HGB CONC 32 g/dL (31-37); MEAN CORPUSCULAR VOLUME 87 fL (79-100); MONO # 0.9 x10^3/uL (0.0-1.1); MONO % 7 % (0-9); NEUT # 10.8 x10^3/uL (1.8-7.7); NEUT % 90 % (31-73); PLATELET COUNT 179 x10^3/uL (140-400); RED BLOOD COUNT 4.13 x10^6/uL (3.50-5.40); RED CELL DISTRIBUTION WIDTH 17.5 % (11.5-14.5)
[2021-04-17] MEDS: INSULIN LISPRO 300 UNITS/3 ML VIAL. SQ SCH ×2 (08:00→12:40)
[2021-04-17 08:20] LABS: ALBUMIN 2.8 g/dL (3.4-5.0); ALBUMIN/GLOBULIN RATIO 0.6 (1.0-1.7); CALCIUM 7.5 mg/dL (8.5-10.1); CREATININE 2.2 mg/dL (0.6-1.0); GFR 26.2; POTASSIUM 4.4 mmol/L (3.5-5.1); TOTAL BILIRUBIN 0.2 mg/dL (0.2-1.0); TOTAL PROTEIN 7.2 g/dL (6.4-8.2)
[2021-04-17] MEDS: AMIODARONE HCL 200 MG TABLET. PO SCH (09:00)
[2021-04-17] MEDS ORDERED: predniSONE 10 MG TABLET PO SCH (09:00)
[2021-04-17] MEDS: METOPROLOL SUCC 24HR ER 50 MG TAB.ER.24H. PO SCH (09:00)
[2021-04-17] MEDS: BUMETANIDE 1 MG TABLET. PO SCH (09:00)
[2021-04-17] MEDS: ANTI-COAG MONITOR BY PHARMACY. MC PRN (09:08)
[2021-04-17 09:49] LABS: % LYMPHS 5 % (24-48); % MONOS 11 % (0-10); % SEGS 84 % (35-66); ANISOCYTOSIS SLIGHT; PLT ESTIMATE ADEQUATE (ADEQUATE)
[2021-04-17] MEDS: PANTOPRAZOLE 40 MG TABLET.DR. PO SCH (09:52)
[2021-04-17] MEDS: APIXABAN 2.5 MG TABLET. PO SCH (09:52)
--- NOTE | 2021-04-17 10:33 | PDOC ---
Renal-Progress Notes Subjective Notes Notes NO NEW COMPLAINTS History of Present Illness Hx of present illness STABLE Vitals Vitals Vital Signs Date Time Temp Pulse Resp B/P (MAP) Pulse Ox O2 Delivery O2 Flow Rate FiO2 04/17/21 09:00 72 90/57 04/17/21 07:20 95 Room Air 04/17/21 07:00 97.7 17 97.7 04/16/21 20:05 2.0 Weight Weight [ ] I.O. Intake and Output Intake and Output 04/17/21 07:00 Output Total 400 ml Balance -400 ml Output Urine Total 400 ml # Bowel Movements 1 Labs Labs Laboratory Tests Test 04/16/21 11:53 04/16/21 16:29 04/16/21 20:56 04/17/21 06:35 Glucose (Fingerstick) 272 mg/dL (70-99) 177 mg/dL (70-99) 240 mg/dL (70-99) White Blood Count 12.0 x10^3/uL (4.0-11.0) Red Blood Count 4.13 x10^6/uL (3.50-5.40) Hemoglobin 11.5 g/dL (12.0-15.5) Hematocrit 35.7 % (36.0-47.0) Mean Corpuscular Volume 87 fL (79-100) Mean Corpuscular Hemoglobin 28 pg (25-35) Mean Corpuscular Hemoglobin Concent 32 g/dL (31-37) Red Cell Distribution Width 17.5 % (11.5-14.5) Platelet Count 179 x10^3/uL (140-400) Neutrophils (%) (Auto) 90 % (31-73) Lymphocytes (%) (Auto) 2 % (24-48) Monocytes (%) (Auto) 7 % (0-9) Eosinophils (%) (Auto) 0 % (0-3) Basophils (%) (Auto) 0 % (0-3) Neutrophils # (Auto) 10.8 x10^3/uL (1.8-7.7) Lymphocytes # (Auto) 0.3 x10^3/uL (1.0-4.8) Monocytes # (Auto) 0.9 x10^3/uL (0.0-1.1) Eosinophils # (Auto) 0.0 x10^3/uL (0.0-0.7) Basophils # (Auto) 0.0 x10^3/uL (0.0-0.2) Segmented Neutrophils % 84 % (35-66) Lymphocytes % 5 % (24-48) Monocytes % 11 % (0-10) Platelet Estimate Adequate (ADEQUATE) Anisocytosis Slight Sodium Level 139 mmol/L (136-145) Potassium Level 4.4 mmol/L (3.5-5.1) Chloride Level 104 mmol/L (98-107) Carbon Dioxide Level 26 mmol/L (21-32) Anion Gap 9 (6-14) Blood Urea Nitrogen 74 mg/dL (7-20) Creatinine 2.2 mg/dL (0.6-1.0) Estimated GFR (Cockcroft-Gault) 26.2 BUN/Creatinine Ratio 34 (6-20) Glucose Level 146 mg/dL (70-99) Calcium Level 7.5 mg/dL (8.5-10.1) Total Bilirubin 0.2 mg/dL (0.2-1.0) Aspartate Amino Transf (AST/SGOT) 12 U/L (15-37) Alanine Aminotransferase (ALT/SGPT) 22 U/L (14-59) Alkaline Phosphatase 60 U/L (46-116) Total Protein 7.2 g/dL (6.4-8.2) Albumin 2.8 g/dL (3.4-5.0) Albumin/Globulin Ratio 0.6 (1.0-1.7) Test 04/17/21 07:52 Glucose (Fingerstick) 154 mg/dL (70-99) Micro Micro Microbiology 04/14/21 Urine Culture - Final, Complete Review of Systems Constitutional: yes: alert Ears/Nose/Throat: Yes: no symptom reported Eyes: Yes: no symptom reported Pulmonary: Yes dyspnea Cardiovascular: Yes no symptom reported Gastrointestional: Yes: no symptom reported Genitourinary: Yes: no symptom reported Musculoskeletal: Yes: no symptom reported Skin: Yes no symptom reported Psychiatric/Neurological: Yes: no symptom reported Physical Exam General Appearance: no apparent distress Skin: warm Respiratory: bilateral CTA Heart: S1S2 Abdomen: soft, bowel sounds present Genitourinary: bladder flat Extremities: pulses present Neurology: alert, oriented, follow commands Musculoskeletal: Osteoarthritis Assessment Assessment IMP HYPERKALEMIA-RESOLVED KAMALJIT WITH CR OF 2.2-MAY BE NEW BASELINE CKD STAGE 3B WITH BASELINE CR OF 1.5 ACUTE ON CHRONIC DIASTOLIC AND SYSTOLIC CHF HX OF HTN HX OF CAD CM WITH EF OF 25% UTI PLAN CONT DIURETICS SUPPLEMENTAL OXYGEN NEEDED CARDIOLOGY EVALUATION WILL FOLLOW EMILY NAYLOR MD Apr 17, 2021 10:33
[2021-04-17 11:00] VITALS: BP 152/87
[2021-04-17] MEDS ORDERED: APIX2.5T PO (12:33)
[2021-04-17] MEDS ORDERED: PRED-220 PO (12:33)
[2021-04-17] MEDS ORDERED: AMIO200T53 PO (12:33)
--- NOTE | 2021-04-17 12:34 | DISCH ---
DISCHARGE INSTRUCTIONS Condition on Discharge Condition on Discharge: Stable Activity After Discharge Activity Instructions for Disc: Resume previous activity, Activity as tolerated Exercise Instruction after Dis: Progress as tolerated Weight Bearing Status after Di: No restrictions Diet after Discharge Diet after Discharge: Cardiac Diet Texture: Regular Wound Incision Care Wound/Incision Care: Keep wound/cast CDI Checks after Discharge Checks after discharge: Check blood press - daily, Check blood sugar, ac/hs DONTE VAZQUEZ MD Apr 17, 2021 12:34
[2021-04-17] MEDS: BENZOCAINE/MENTHOL LOZENGE. PO PRN ×2 (13:31→15:06)
--- NOTE | 2021-04-17 13:57 | PDOC ---
GENERAL General: Discharge summary [id number] VITAL SIGNS Vital Signs/I&O: Vital Signs Date Time Temp Pulse Resp B/P (MAP) Pulse Ox O2 Delivery O2 Flow Rate FiO2 04/17/21 11:19 95 Room Air 04/17/21 09:00 72 90/57 04/17/21 08:00 2.0 04/17/21 07:00 97.7 17 97.7 I & O 04/16/21 04/16/21 04/17/21 15:00 23:00 07:00 Output Total 400 ml Balance -400 ml ALLERGIES Allergies: Allergies Coded Allergies Type Severity Reaction Last Updated Verified No Known Drug Allergies 12/31/19 No MEDS Medications: Current Medications Medications (Trade) Dose Ordered Sig/Jeremy Route PRN Reason Start Time Stop Time Status Last Admin Dose Admin Insulin Glargine (Lantus Syringe) 10 unit QHS SQ 04/16/21 21:00 04/16/21 21:17 Prednisone (Prednisone) 10 mg DAILY PO 04/17/21 09:00 04/17/21 09:52 LAB Lab: Laboratory Tests Test 04/16/21 16:29 04/16/21 20:56 04/17/21 06:35 04/17/21 07:52 Glucose (Fingerstick) 177 mg/dL (70-99) H 240 mg/dL (70-99) H 154 mg/dL (70-99) H White Blood Count 12.0 x10^3/uL (4.0-11.0) H Red Blood Count 4.13 x10^6/uL (3.50-5.40) Hemoglobin 11.5 g/dL (12.0-15.5) L Hematocrit 35.7 % (36.0-47.0) L Mean Corpuscular Volume 87 fL (79-100) Mean Corpuscular Hemoglobin 28 pg (25-35) Mean Corpuscular Hemoglobin Concent 32 g/dL (31-37) Red Cell Distribution Width 17.5 % (11.5-14.5) H Platelet Count 179 x10^3/uL (140-400) Neutrophils (%) (Auto) 90 % (31-73) H Lymphocytes (%) (Auto) 2 % (24-48) L Monocytes (%) (Auto) 7 % (0-9) Eosinophils (%) (Auto) 0 % (0-3) Basophils (%) (Auto) 0 % (0-3) Neutrophils # (Auto) 10.8 x10^3/uL (1.8-7.7) H Lymphocytes # (Auto) 0.3 x10^3/uL (1.0-4.8) L Monocytes # (Auto) 0.9 x10^3/uL (0.0-1.1) Eosinophils # (Auto) 0.0 x10^3/uL (0.0-0.7) Basophils # (Auto) 0.0 x10^3/uL (0.0-0.2) Segmented Neutrophils % 84 % (35-66) H Lymphocytes % 5 % (24-48) L Monocytes % 11 % (0-10) H Platelet Estimate Adequate (ADEQUATE) Anisocytosis Slight Sodium Level 139 mmol/L (136-145) Potassium Level 4.4 mmol/L (3.5-5.1) # Chloride Level 104 mmol/L (98-107) Carbon Dioxide Level 26 mmol/L (21-32) Anion Gap 9 (6-14) Blood Urea Nitrogen 74 mg/dL (7-20) H Creatinine 2.2 mg/dL (0.6-1.0) H Estimated GFR (Cockcroft-Gault) 26.2 BUN/Creatinine Ratio 34 (6-20) H Glucose Level 146 mg/dL (70-99) H Calcium Level 7.5 mg/dL (8.5-10.1) L Total Bilirubin 0.2 mg/dL (0.2-1.0) Aspartate Amino Transferase (AST) 12 U/L (15-37) L Alanine Aminotransferase (ALT) 22 U/L (14-59) Alkaline Phosphatase 60 U/L (46-116) Total Protein 7.2 g/dL (6.4-8.2) Albumin 2.8 g/dL (3.4-5.0) L Albumin/Globulin Ratio 0.6 (1.0-1.7) L Test 04/17/21 12:06 Glucose (Fingerstick) 188 mg/dL (70-99) H Laboratory Tests 04/17/21 06:35 Laboratory Tests 04/17/21 06:35 Justifications for Admission Other Justification DONTE VAZQUEZ MD Apr 17, 2021 13:57
--- NOTE | 2021-04-17 15:13 | NUR ---
Discharge Note: MAJO CONNOLLY [place] Discharge instructions and discharge home medications reviewed with Patient and a copy given. All questions have been answered and understanding verbalized. The following instructions and handouts were given: follow up instructions, medication education Discontinued lines and drains: 18 guage left FA, tip intact. patient tolerated well. Patient discharged to home with self care via .
--- NOTE | 2021-04-17 16:44 | PN ---
DATE: 04/17/2021 SUBJECTIVE: No acute events overnight. The patient is sitting in her recliner without any complaints. She is eager to go home. Denies any chest pain or dyspnea. Overnight, no acute events were noted. Reviewed Nephrology and primary care notes. OBJECTIVE: VITAL SIGNS: Afebrile, 82, 18, 152/87, 92% on room air. GENERAL: She is alert and oriented, in no acute distress. HEAD AND NECK: Unremarkable. CARDIAC: Regular rate and rhythm without any murmurs, rubs or gallops. LUNGS: Clear to auscultation bilaterally. ABDOMEN: Soft, nontender, nondistended. EXTREMITIES: Without any clubbing, cyanosis or edema. CURRENT CARDIOVASCULAR MEDICATIONS: Aspirin 81 mg daily, Toprol-XL 50 mg daily, Bumex 1 mg p.o. daily, apixaban 2.5 mg p.o. b.i.d., amiodarone 200 mg daily, atorvastatin 20 mg at bedtime. LABORATORY DATA: Hemoglobin 11.5, platelet count 179. Creatinine 2.2. IMPRESSION: 1. Acute on chronic systolic heart failure. The patient currently appears to be euvolemic. 2. History of chronic obstructive pulmonary disease and asthma exacerbation. 3. History of ischemic cardiomyopathy with [employer] ICD in place with most recent ejection fraction 25%. 4. Chronic kidney disease, now with a creatinine baseline of 2.2. 5. Coronary artery disease and valvular heart disease with prior bypass and tricuspid/mitral valve repairs. 6. Hypertension. 7. Diabetes type 2. 8. Pulmonary hypertension. 9. History of pulmonary embolus. 10. Paroxysmal atrial fibrillation. RECOMMENDATIONS: 1. Continue diuretic therapy at this time. We will withhold on YASH inhibitor or ARB or Entresto given her acute kidney injury issues. 2. Continue Toprol-XL and aspirin. Continue Eliquis for anticoagulation for above comorbidities. Supportive care from cardiovascular perspective and we will follow up with her in the office with Dr. Garza in 1-2 weeks' time. CECIL DREW: MILIND/latanya TID: [id number]
--- NOTE | 2021-04-17 20:35 | DS ---
DATE OF DISCHARGE: 04/17/2021 HOSPITAL COURSE: This patient is a jose l 76-year-old woman who is a continuity outpatient of Dr. Shahab Torres as well as wax machine operator, Dr. Henning, nut sheller Dr. Givens and admitting clerk, Dr. Kuhn. She does remarkably well despite the extent of her chronic disease. She presented to the Emergency Department 3 days ago with wheezing, cough, congestion and hypoxia, thought to be secondary to acute on chronic systolic congestive heart failure, acute on chronic stage III renal failure, and asthma exacerbation. She tested negative for COVID on a rapid swab. Her numbers normalized and she is back at her baseline functioning today. She has been cleared by Dr. Kaur for discharge home with close outpatient followup. The patient is eager to get home and is feeling better this morning. We will treat with another 10 days of steroids. She prefers to avoid antibiotics if possible. I will see her team within the next to two weeks. PHYSICAL EXAMINATION: VITAL SIGNS: This morning is notable for that the patient has been afebrile. Blood pressure has been in the high 90s to one-teens over 50s, heart rate is in the 60s-70s and regular. She is breathing comfortably and saturating 95% on room air. GENERAL: She is a pleasant 76-year-old woman, alert and oriented x 3, no acute distress. HEENT: Unremarkable for acute abnormality. NECK: Soft and supple. No adenopathy or thyromegaly noted. CHEST: Clear to auscultation. HEART: S1, S2 normal. Regular rate and rhythm. No murmurs or gallops are noted. ABDOMEN: Soft, nontender, nondistended. No masses or organomegaly noted. EXTREMITIES: Unremarkable for acute abnormality. FINAL DIAGNOSIS: Acute hypoxic respiratory failure secondary to asthma exacerbation, acute on chronic systolic congestive heart failure, and acute on chronic stage III renal failure with her chronic conditions normalizing by discharge. YASH/ADRY/AMI DR: YASH/nts TID: [id number] CC: SHAHAB TORRES MD, KELLY HENNING MD, JERRY GIVENS MD, Dr. Kuhn
[2021-04-18] MEDS ORDERED: BENZ-8 PO (18:10)
[2021-04-18] MEDS ORDERED: GUAI120L35 PO (18:11)
== END 2021-04-17 15:40 | disposition home or self-care (01) | DRG 291 ==
LOC: ER 15:18 → 5 NORTH 17:08 → OBSVTOIN 04-15 11:03
PROVIDERS: ADMIT Internal Medicine; ATTEND Internal Medicine
DX: I13.0 Hypertensive heart and chronic kidney disease with heart failure and stage 1 through stage 4 chronic kidney disease, or unspecified chronic kidney disease (principal); I50.43 Acute on chronic combined systolic (congestive) and diastolic (congestive) heart failure; J96.01 Acute respiratory failure with hypoxia; I48.92 Unspecified atrial flutter; J45.901 Unspecified asthma with (acute) exacerbation; N39.0 Urinary tract infection, site not specified; N17.9 Acute kidney failure, unspecified; E11.22 Type 2 diabetes mellitus with diabetic chronic kidney disease; E78.00 Pure hypercholesterolemia, unspecified; E78.5 Hyperlipidemia, unspecified; E87.5 Hyperkalemia; I25.10 Atherosclerotic heart disease of native coronary artery without angina pectoris; I25.5 Ischemic cardiomyopathy; I27.20 Pulmonary hypertension, unspecified; I48.0 Paroxysmal atrial fibrillation; N18.32 Chronic kidney disease, stage 3b; Z20.822 Contact with and (suspected) exposure to COVID-19; Z82.49 Family history of ischemic heart disease and other diseases of the circulatory system; Z83.3 Family history of diabetes mellitus; Z86.711 Personal history of pulmonary embolism; Z87.891 Personal history of nicotine dependence; Z90.710 Acquired absence of both cervix and uterus; Z95.1 Presence of aortocoronary bypass graft; Z95.810 Presence of automatic (implantable) cardiac defibrillator; K21.9 Gastro-esophageal reflux disease without esophagitis; M19.90 Unspecified osteoarthritis, unspecified site
CPT/HCPCS: 36415; 71045; 80048; 80053; 81001; 82962; 83735; 83880; 84484; 85007; 85025; 87086; 87426; 93005; 93308; 94618; 94640; G0378; G0379; J0696; J1815; J1940; J2920; J2930; J7030; J7512; U0003; 97116-GP; 99285-25

== ENCOUNTER 2021-04-18 16:29 | Emergency (ER) | payer OTHER, MEDICARE ==
[~2021-04-18] VITALS: Ht 157.5 cm; Wt 61.3 kg
[~2021-04-18 16:29] MED LIST changes: +AMIO200T53 PO; +APIX2.5T PO; +CARV12.53 PO; +IPRA3AMP29 NEB; +OLME40TA16 PO; +PRED-220 PO
--- NOTE | 2021-04-18 16:39 | PHYS DOC ---
Past Medical History Past Medical History: Asthma, CHF, Diabetes-Type II, GERD, High Cholesterol, Heart Disease, Hypertension, Renal Disease Past Surgical History: Coronary Bypass Surgery, Hysterectomy, Pacemaker, Other Additional Past Surgical Histo: VALVE REPAIR x's 2, AICD Smoking Status: Former Smoker Alcohol Use: None Drug Use: None Adult General HPI HPI Patient is a 76 year old female who presents with with PMH of asthma/COPD. She comes to the emergency department today requesting cough medication. She was recently admitted to this hospital and discharged home yesterday. She had been in the hospital for 4 nights for asthma and COPD. She was discharged home on steroids and she has albuterol nebulized treatments at home. Her primary complaint today is not shortness of breath. Rather, she states she started coughing prior to leaving the hospital and she is requesting cough medication. She states the cough keeps her up at night and has been very persistent. Cough is nonproductive and is wheezy. Denies acutely worsening shortness of breath Review of Systems Review of Systems Constitutional: Denies fever or chills Eyes: Denies HENT: Denies nasal congestion Respiratory: as documented in HPI Cardiovascular: No additional information not addressed in HPI GI: Denies abdominal pain, nausea : Denies dysuria Musculoskeletal: Denies Integument: Denies Neurologic: Denies Endocrine: Denies All other systems were reviewed and found to be within normal limits, except as documented in this note. Current Medications Current Medications Current Medications Medications (Trade) Dose Ordered Sig/Jeremy Start Time Stop Time Status Last Admin Dose Admin Albuterol/ Ipratropium (Duoneb) 3 ml 1X ONCE 04/18/21 17:00 04/18/21 17:02 DC 04/18/21 17:10 3 ML Allergies Allergies Allergies Coded Allergies Type Severity Reaction Last Updated Verified No Known Drug Allergies 04/18/21 No Physical Exam Physical Exam Constitutional: Well developed, well nourished, no acute distress, non-toxic appearance HENT: Normocephalic, atraumatic, bilateral external ears normal, oropharynx moist Eyes: PERRLA, EOMI Neck: Normal range of motion Cardiovascular:Heart rate regular rhythm Lungs & Thorax: Diminished breath sounds bilaterally with few expiratory wheezes heard. Oxygen saturations 100% on room air. No increased work of breathing Abdomen: Bowel sounds normal, soft Skin: Warm, dry, no erythema, no rash Back: Normal ROM Extremities: No tenderness, no cyanosis Neurologic: Alert and oriented X 3 Psychologic: Affect normal Current Patient Data Vital Signs Vital Signs Date Time Temp Pulse Resp B/P (MAP) Pulse Ox O2 Delivery O2 Flow Rate FiO2 04/18/21 17:10 100 Room Air 04/18/21 16:45 98.7 79 22 146/79 (101) 98.7 EKG EKG [] Radiology/Procedures Radiology/Procedures [] Course & Med Decision Making Course & Med Decision Making Pertinent Labs and Imaging studies reviewed. (See chart for details) Seen and examined on arrival to her room. C/o only of cough. Was evaluated at local urgent care and referred to return to this ER. Currently taking prednisone and has albuterol at home. Today, will repeat CXR, give duoneb, and walking SaO2. 18:00: Chest x-ray reviewed and stable. Patient was ambulated about the department. Her oxygen saturation did not fall below 95%. She was given a DuoNeb in the ER and she feels improved. She continues to be stable for discharge home. She is already taking prednisone and has inhaled breathing medications to use at home. Primarily requesting cough medication. Today she is given prescription for some hydrocodone elixir and Tessalon Perles. I recommend she follow-up with her primary care doctor or come back to the ER for any new or severely worsening symptoms Dragon Disclaimer Dragon Disclaimer This electronic medical record was generated, in whole or in part, using a voice recognition dictation system. Departure Departure Impression: Primary Impression: Asthma exacerbation Disposition: HOME / SELF CARE / HOMELESS Condition: GOOD Referrals: SHAHAB GARCIA MD (PCP) Patient Instructions: Asthma, Adult Scripts Guaifenesin/Codeine Phosphate (Codeine-Guaifen 10-100 mg/5 ml) 120 Ml Liquid 5 ML PO TID PRN for cough and congestion MDD 20 Milliliter(s) for 4 Days, #120 ML 0 Refills Prov: RADAMES STOKES DO 04/18/21 Benzonatate (BENZONATATE) 100 Mg Capsule 1 CAP PO TID, #21 CAP Prov: RADAMES STOKES DO 04/18/21 RADAMES STOKES DO Apr 18, 2021 16:39
[2021-04-18] MEDS ORDERED: IPRATRPIUM/ALBUTEROL 0.5/2.5MG 3 ML NEBU. NEB ONE (17:00)
--- NOTE | 2021-04-18 17:22 | NUR ---
DR. STOKES NOTIFIED OF PT'S SATURATION DISPLAYED BY PORTABLE SPO2 MONITOR. Addendum: 04/18/21 at [address] TEST PROCEDURE COMPLETED AND RESULTS RELAYED TO DR. STOKES BY June.
[2021-04-18] MEDS ORDERED: BENZ-8 PO (18:10)
[2021-04-18 18:11] VITALS: BP 132/74
[2021-04-18] MEDS ORDERED: GUAI120L35 PO (18:11)
--- NOTE | 2021-04-18 18:36 | RAD ---
EXAM: XR CHEST 1V 04/18/2021 5:16 PM CLINICAL INDICATION: Dyspnea COMPARISON: Chest radiograph 04/13/2021 TECHNIQUE: AP upright view of the chest FINDINGS: There are changes of median sternotomy and a prosthetic heart valve. A pacemaker/AICD is u nchanged. Cardiomegaly is stable. The lungs are normally expanded. There is no consolidation, pleural effusion, or pneumothorax. No pulmonary edema. No acute osseous abnormality. IMPRESSION: Unchanged cardiomegaly. No acute abnormality. Electronically signed by: Carina Mcknight MD (04/18/2021 6:34 PM) [id number]
== END 2021-04-18 18:33 | disposition home or self-care (01) ==
LOC: ER 16:29
DX: J45.901 Unspecified asthma with (acute) exacerbation (principal); E78.00 Pure hypercholesterolemia, unspecified; I11.0 Hypertensive heart disease with heart failure; I50.9 Heart failure, unspecified; E11.9 Type 2 diabetes mellitus without complications; K21.9 Gastro-esophageal reflux disease without esophagitis; Z87.891 Personal history of nicotine dependence; Z95.0 Presence of cardiac pacemaker; Z95.1 Presence of aortocoronary bypass graft
CPT/HCPCS: 71045; 94640; 99283

== ENCOUNTER 2021-05-04 20:44 | Emergency (ER) | payer OTHER, MEDICARE ==
[~2021-05-04] VITALS: Ht 157.5 cm; Wt 61.3 kg
[~2021-05-04 20:44] MED LIST changes: +BENZ-8 PO; +DOXY100T PO; +GUAI120L35 PO; +INSU100I32 SQ; +INSU100V8 SQ
[2021-05-04 22:09] LABS: BASO % 0 % (0-3); EOS % 0 % (0-3); HEMATOCRIT 47.1 % (36.0-47.0); HEMOGLOBIN 15.2 g/dL (12.0-15.5); LYMPH # 0.3 x10^3/uL (1.0-4.8); LYMPH % 3 % (24-48); MEAN CORPUSCULAR HEMOGLOBIN 29 pg (25-35); MEAN CORPUSCULAR HGB CONC 32 g/dL (31-37); MEAN CORPUSCULAR VOLUME 88 fL (79-100); MONO # 0.6 x10^3/uL (0.0-1.1); MONO % 5 % (0-9); NEUT # 11.2 x10^3/uL (1.8-7.7); NEUT % 92 % (31-73); PLATELET COUNT 164 x10^3/uL (140-400); RED BLOOD COUNT 5.35 x10^6/uL (3.50-5.40); WHITE BLOOD COUNT 12.1 x10^3/uL (4.0-11.0)
--- NOTE | 2021-05-04 22:13 | PHYS DOC ---
Past Medical History Past Medical History: Asthma, CHF, COPD, Diabetes-Type II, GERD, High Cho lesterol, Heart Disease, Hypertension, Renal Disease Past Surgical History: Other Additional Past Surgical Histo: VALVE REPAIR x's 2, AICD Smoking Status: Never Smoker Alcohol Use: None Drug Use: None General Adult EDM: Chief Complaint: CONSTIPATION HPI: HPI: 76-year-old female past medical history of CHF, COPD, diabetes, anxiety, hypertension hyperlipidemia, presents to the ED with her , (patient consents to his/her/their knowledge and involvement in pts' medical care), after being discharged from the hospital earlier today for respiratory failure, complaints of "my asthma and constipation." States her asthma improved after a breathing treatment at 1 PM today. Last bowel movement was 2 days ago. Called nurse hotline and took 2 MiraLAX-was told to come to emergency department if her pain worsens. Complains of rectal pain and straining for a bowel movement earlier today. Review of Systems: Review of Systems: Constitutional: Denies fever or chills. [] Eyes: Denies change in visual acuity. [] HENT: Denies nasal congestion or sore throat. [] Respiratory: Denies cough or shortness of breath. [] Cardiovascular: Denies chest pain or edema. [] GI: Denies nausea, vomiting, bloody stools or diarrhea. [] : Denies dysuria or vaginal bleeding Musculoskeletal: Denies back pain or joint pain. [] Integument: Denies rash or diaphoresis Neurologic: Denies headache, focal weakness or sensory changes. [] Endocrine: Denies polyuria or polydipsia. [] Lymphatic: Denies swollen glands. [] Psychiatric: Denies depression or anxiety. [] Heart Score: C/O Chest Pain: No Risk Factors: Risk Factors: DM, Current or recent (<one month) smoker, HTN, HLP, family history of CAD, obesity. Risk Scores: Score 0 - 3: 2.5% MACE over next 6 weeks - Discharge Home Score 4 - 6: 20.3% MACE over next 6 weeks - Admit for Clinical Observation Score 7 - 10: 72.7% MACE over next 6 weeks - Early Invasive Strategies Current Medications: Current Medications Medications (Trade) Dose Ordered Sig/Jeremy Start Time Stop Time Status Last Admin Dose Admin Sodium Monofluorophosphate (Fleet Adult) 133 ml 1X ONCE 3/2/22 22:15 05/04/21 22:16 Allergies: Allergies: Allergies Coded Allergies Type Severity Reaction Last Updated Verified No Known Drug Allergies 04/27/21 No Physical Exam: PE: Constitutional: Well developed, well nourished, no acute distress, non-toxic appearance. HENT: Normocephalic, atraumatic, Eyes: EOMI, conjunctiva normal, no discharge. Neck: Normal range of motion, supple, Cardiovascular: S1/2 present, regular rhythm Lungs & Thorax: Speaking in full sentences, bilateral equal chest rise, no tachypnea or increased work of breathing, no active wheezing Abdomen: soft, no tenderness, slightly distended, no rigidity or guarding Skin: Warm, dry, no erythema, no rash. [] Back: No tenderness, no CVA tenderness. [] Extremities: No tenderness, no cyanosis, Neurologic: Alert and oriented X 3, normal motor function, normal sensory function, no focal deficits noted. [] Psychologic: Affect normal, judgement normal, mood normal. [] Rectal: Chaperoned by RN, stool in rectum, disimpacted brown stool, enema placed by rn EKG: EKG: [] Radiology/Procedures: Radiology/Procedures: IMAGING REPORT Signed PATIENT: MAJO CONNOLLY JACCOUNT: [id number] : 1945 LOCATION: ER AGE: 76 SEX: F EXAM STATUS: REG ER ORD. PHYSICIAN: KRISHAN TURNER DO REASON: constipation PROCEDURE: CT ABDOMEN PELVIS WO CONTRAST Exam: CT abdomen/pelvis without intravenous contrast Indication: Constipation Comparison: None Technique: Helical CT imaging performed of the abdomen and pelvis without the use of intravenous contrast. Sagittal and coronal reformats were obtained. One or more of the following individualized dose reduction techniques were utilized for this examination: 1. Automated exposure control 2. Adjustment of the mA and/or kV according to patient size 3. Use of iterative reconstruction technique. Findings: Inherently limited evaluation without intravenous contrast. Lower chest: Cardiomegaly. Pacemaker/AICD. Prosthetic heart valves. Surgical changes CABG. Unchanged consolidation in the posterior medial left lower lobe. Liver: Normal. Gallbladder/Biliary Tree: There is hyperdense material in the gallbladder, discrete vicarious excretion of contrast from prior exam or multiple small stones/sludge. The gallbladder is nondistended. Bile ducts are normal. Pancreas: Normal. Spleen: No splenomegaly. There are calcified splenic granulomas. Adrenal Glands: Normal. Kidneys/Ureters/Bladder: Kidneys are normal in size. No nephrolithiasis or hydronephrosis. There is a 9 mm hypodense lesion in the left kidney, too small to characterize. Ureters and bladder are normal. Reproductive Organs: Enlarged uterus with multiple calcified fibroids. Stomach, small bowel, and colon: The stomach is normal. No small bowel obstruction. Appendix is normal. Colon is normal. Vasculature: Abdominal aorta is normal caliber. There is moderate calcified aortoiliac atherosclerosis. Lymph Nodes: No lymphadenopathy. Peritoneum and retroperitoneum: No free fluid or free air. Bones: No acute osseous abnormality. Mild degenerative disc disease. Miscellaneous: None IMPRESSION: 1. No acute abnormality of the bowel. 2. Hyperdense material in the gallbladder could be vicarious excretion of contrast from prior exam or small stones and sludge in the gallbladder. 3. Enlarged, leiomyomatous uterus. 4. Moderate calcified aortoiliac atherosclerosis. Cardiomegaly. 5. Partial consolidation of the left lower lobe. This was seen on 04/15/2020 and is incompletely evaluated. Electronically signed by: Carina Mcknight MD (05/05/2021 12:26 AM) [facility] DICTATED and SIGNED BY: CARINA MCKNIGHT MD DATE: 05/05/21 [id number] IMAGING REPORT Signed PATIENT: MAJO CONNOLLY ACCOUNT: [id number] : 1945 LOCATION: ER AGE: 76 SEX: F EXAM STATUS: REG ER ORD. PHYSICIAN: KRISHAN TURNER DO REASON: abd pain, r/o ariadna PROCEDURE: ABDOMEN LTD EXAMINATION: US ABDOMEN LIMITED 05/05/2021 12:59 AM INDICATION: Abnormal gallbladder, pain. TECHNIQUE: Arteaga scale and color Doppler ultrasound images of the right upper quadrant were obtained. COMPARISON: CT abdomen pelvis from the same day. FINDINGS: Liver: The liver is normal in size measuring 14 cm in length. Normal hepatic echogenicity. No focal liver lesion. Gallbladder: The gallbladder is distended measuring 10 cm. There are no stones or sludge in the gallbladder lumen. Gallbladder wall is normal in thickness measuring 1.8 mm. Bile ducts: The common bile duct is normal measuring 2 mm. No intrahepatic biliary duct dilatation. Right kidney: The right kidney measures 8.3 x 2.7 x 3.4 cm. Normal cortical thickness and echogenicity. No hydronephrosis. Other: IVC is patent at the level the liver. The pancreas is obscured by bowel gas. IMPRESSION: Distended gallbladder without cholelithiasis, sludge, or gallbladder wall thickening. Electronically signed by: Carina Mcknight MD (05/05/2021 3:10 AM) [facility] DICTATED and SIGNED BY: CARINA MCKNIGHT MD DATE: 05/05/21 [id number] Course & Med Decision Making: Course & Med Decision Making Pertinent Labs and Imaging studies reviewed. (See chart for details) Encounter for constipation with significant relief with enemas per RN. CT imaging showing incidental left renal mass and left lower lobe partial consolidation since April 15. Will treat with antibiotics and MiraLAX. On reevaluation patient sleeping comfortably emergency department. Has no active wheezing or difficulties breathing. CT report printed and given to take to her patient to follow-up renal mass. Will discharge home with strict ED return precautions were given for bloody stools, constipation, fever or severe abdominal pain. Encouraged urgent outpatient follow-up with PMD for reevaluation. Life-threatening processes were considered but are low suspicion at this time, given history, physical exam and ED workup. Pt was educated on all prescription medications and adverse effects. All patient's questions were answered and pt was stable at time of discharge. Life/limb-threatening differential includes but is not limited to, aortic dissection, aortic aneurysm, acute coronary syndrome, surgical abdomen (appendicitis, cholecystitis, ischemic bowel, strangulated hernia, etc), bowel obstruction or volvulus, bladder outlet obstruction, gastrointestinal bleeding, inflammatory bowel disease, peptic ulcer disease, ACS/CAD, sepsis, diverticular disease, ureterolithiasis, nephrolithiasis, vaginal hemorrhage, or genitourinary infection. I have spoken with the patient and/or caregivers. I explained the patient's condition, diagnoses and treatment plan based on the information available to me at this time. I have answered the patient and/or caregiver's questions and addressed any concerns. The patient and/or caregivers have a good understanding of patient's diagnosis, condition and treatment plan as can be expected at this point. Vital signs have been stable. Patient's condition is stable and appropriate for discharge from the emergency department. Patient will pursue further outpatient evaluation with primary care physician or other designated or consulting physician as outlined in the discharge instructions. The patient and/or caregivers are agreeable to this plan of care and follow-up instructions have been explained in detail. The patient and/or caregivers have received these instructions in written form and have expressed an understanding of the discharge instructions. The patient and/or caregivers are aware that any significant change of condition or worsening of symptoms should prompt immediate return to this or the closest emergency department or call to 911. Alfredo Disclaimer: Alfredo Disclaimer: This electronic medical record was generated, in whole or in part, using a voice recognition dictation system. Departure Departure Impression: Primary Impression: Constipation Additional Impressions: Left lower lobe consolidation Renal lesion Disposition: HOME / SELF CARE / HOMELESS Condition: STABLE Referrals: SHAHAB GARCIA MD (PCP) Follow-up with your primary care physician in the next week for reevaluation of left renal lesion Patient Instructions: Constipation, Adult, Pneumonia, Adult Additional Instructions: EMERGENCY DEPARTMENT GENERAL DISCHARGE INSTRUCTIONS Thank you for coming to [facility] Emergency Department (ED) today and trusting us with you care. We trust that you had a positive experience in our Emergency Department. If you wish to speak to the department management, you may call the Director at [phone]. YOUR FOLLOW UP INSTRUCTIONS ARE FOLLOWS: 1. Do you have a private Doctor? If you do not have a private doctor, please ask for a resource list of physicians or clinics that may be able to assist you with follow up care. 2. The Emergency Physicain has interpreted your x-rays. The X-Ray specialist will also review them. If there is a change in the findings, you will be notified in 48 hours when at all possible. 3. A lab test or culture has been done, your results will be reviewed and you will be notified if you need a change in treatment. ADDITIONAL INSTRUCTIONS AND INFORMATION: 1. Your care today has been supervised by a physician who is specially trained in emergency care. Many problems require more than one evaluation for a complete diagnosis and treatment. We recommend that you schedule your follow up appointment as recommended to ensure complete treatment of you illness or injury. If you are unable to obtain follow up care and continue to have a problem, or if your condition worsens, we recommend that you return to the ED. 2. We are not able to safely determine your condition over the phone nor are we able to give sound medical advice over the phone. For these safety reasons, if you call for medical advice we will ask you to come to the ED for further evaluation. 3. If you have any questions regarding these discharge instructions please call the ED at [phone]. SAFETY INFORMATION: In the interest of safety, wellness, and injury prevention; we encourage you to wear your sealbelt, if you smoke; quite smoking, and we encourage family to use a protective helmet for bicycling and other sporting events that present an increased risk for head injury. IF YOUR SYMPTOMS WORSEN OR NEW SYMPTOMS DEVELOP, OR YOU HAVE CONCERNS ABOUT YOUR CONDITION; OR IF YOUR CONDITION WORSENS WHILE YOU ARE WAITING FOR YOUR FOLLOW UP APPOINTMENT; EITHER CONTACT YOUR PRIMARY CARE DOCTOR, THE PHYSICIAN WHOSE NAME AND NUMBER YOU WERE GIVEN, OR RETURN TO THE ED IMMEDIATELY. Scripts Polyethylene Glycol 3350 (MIRALAX) 17 Gm Powd.pack 1 PACKET PO DAILY for constipation for 30 Days, #30 PACKET 0 Refills dissolve in water Prov: KRISHAN TURNER DO 05/05/21 Azithromycin (ZITHROMAX) 250 Mg Tablet 1 PKG PO UD, #6 TAB Prov: KRISHAN TURNER DO 05/05/21 Amoxicillin/Potassium Clav (AMOX TR-K CLV 875-125 MG TAB) 1 Each Tablet 1 TAB PO BID for 5 Days, #10 TAB Prov: KRISHAN TURNER DO 05/05/21 KRISHAN TURNER DO May 04, 2021 22:13
[2021-05-04] MEDS ORDERED: SODIUM PHOSPHATES 19/7GM 133 ML ENEMA. PR ONE ×2 (22:15→23:00)
[2021-05-04 23:04] LABS: CALCIUM 9.1 mg/dL (8.5-10.1); CREATININE 2.3 mg/dL (0.6-1.0); GFR 24.9; POTASSIUM 5.1 mmol/L (3.5-5.1)
[2021-05-04 23:15] LABS: ALBUMIN 3.1 g/dL (3.4-5.0); ALBUMIN/GLOBULIN RATIO 0.9 (1.0-1.7); TOTAL BILIRUBIN 0.9 mg/dL (0.2-1.0); TOTAL PROTEIN 6.4 g/dL (6.4-8.2)
--- NOTE | 2021-05-05 00:28 | RAD ---
Exam: CT abdomen/pelvis without intravenous contrast Indication: Constipation Comparison: None Technique: Helical CT imaging performed of the abdomen and pelvis without the use of intravenous cont rast. Sagittal and coronal reformats were obtained. One or more of the following individualized dose reduction techniques were utilized for this examinat ion: 1. Automated exposure control 2. Adjustment of the mA and/or kV according to patient size 3. Use of iterative reconstruction technique. Findings: Inherently limited evaluation without intravenous contrast. Lower chest: Cardiomegaly. Pacemaker/AICD. Prosthetic heart valves. Surgical changes CABG. 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 Liver: Normal. Gallbladder/Biliary Tree: There is hyperdense material in the gallbladder, discrete vicarious excreti on of contrast from prior exam or multiple small stones/sludge. The gallbladder is nondistended. Bile ducts are normal. Pancreas: Normal. Spleen: No splenomegaly. There are calcified splenic granulomas. Adrenal Glands: Normal. Kidneys/Ureters/Bladder: Kidneys are normal in size. No nephrolithiasis or hydronephrosis. There is a 9 mm hypodense lesion in the left kidney, too small to characterize. Ureters and bladder are normal. Reproductive Organs: Enlarged uterus with multiple calcified fibroids. Stomach, small bowel, and colon: The stomach is normal. No small bowel obstruction. Appendix is ke l. Colon is normal. Vasculature: Abdominal aorta is normal caliber. There is moderate calcified aortoiliac atherosclerosi s. Lymph Nodes: No lymphadenopathy. Peritoneum and retroperitoneum: No free fluid or free air. Bones: No acute osseous abnormality. Mild degenerative disc disease. Miscellaneous: None IMPRESSION: 1. No acute abnormality of the bowel. 2. Hyperdense material in the gallbladder could be vicarious excretion of contrast from prior exam o r small stones and sludge in the gallbladder. 3. Enlarged, leiomyomatous uterus. 4. Moderate calcified aortoiliac atherosclerosis. Cardiomegaly. 5. Partial consolidation of the left lower lobe. This was seen on 04/15/2020 and is incompletely evalu ated. Electronically signed by: Carina Mcknight MD (05/05/2021 12:26 AM) [facility]
--- NOTE | 2021-05-05 03:13 | RAD ---
EXAMINATION: US ABDOMEN LIMITED 05/05/2021 12:59 AM INDICATION: Abnormal gallbladder, pain. TECHNIQUE: Arteaga scale and color Doppler ultrasound images of the right upper quadrant were obtained. COMPARISON: CT abdomen pelvis from the same day. FINDINGS: Liver: The liver is normal in size measuring 14 cm in length. Normal hepatic echogenicity. No focal liver lesion. Gallbladder: The gallbladder is distended measuring 10 cm. There are no stones or sludge in the gall bladder lumen. Gallbladder wall is normal in thickness measuring 1.8 mm. Bile ducts: The common bile duct is normal measuring 2 mm. No intrahepatic biliary duct dilatation. Right kidney: The right kidney measures 8.3 x 2.7 x 3.4 cm. Normal cortical thickness and echogenici ty. No hydronephrosis. Other: IVC is patent at the level the liver. The pancreas is obscured by bowel gas. IMPRESSION: Distended gallbladder without cholelithiasis, sludge, or gallbladder wall thickening. Electronically signed by: Carina Mcknight MD (05/05/2021 3:10 AM) [facility]
[2021-05-05] MEDS ORDERED: POLY17PO29 PO (03:25)
[2021-05-05] MEDS ORDERED: AZIT250T PO (03:25)
[2021-05-05] MEDS ORDERED: AMOX1TAB11 PO (03:25)
[2021-05-05 03:32] VITALS: BP 108/56
== END 2021-05-05 03:40 | disposition home or self-care (01) ==
LOC: ER 20:44
DX: N28.9 Disorder of kidney and ureter, unspecified (principal); K59.00 Constipation, unspecified; J18.1 Lobar pneumonia, unspecified organism; I11.0 Hypertensive heart disease with heart failure; I50.9 Heart failure, unspecified; E11.9 Type 2 diabetes mellitus without complications; K21.9 Gastro-esophageal reflux disease without esophagitis; E78.00 Pure hypercholesterolemia, unspecified; J44.9 Chronic obstructive pulmonary disease, unspecified
CPT/HCPCS: 36415; 74176; 76705; 80053; 82550; 84484; 85025; 99285-25

== ENCOUNTER 2021-06-18 19:01 | Inpatient (IN) | payer MEDICARE, OTHER ==
[~2021-06-18] VITALS: Ht 157.5 cm; Wt 57.8 kg
[~2021-06-18 19:01] MED LIST changes: +AMOX1TAB11 PO; -OMEP20TA8 PO; +OMEP20TA91 PO; +POLY17PO29 PO
--- NOTE | 2021-06-18 19:37 | PHYS DOC ---
Past Medical History Past Medical History: Asthma, CHF, COPD, Diabetes-Type II, GERD, High Cho lesterol, Heart Disease, Hypertension, Renal Disease Past Surgical History: Coronary Bypass Surgery, Pacemaker Additional Past Surgical Histo: VALVE REPAIR x's 2, AICD Smoking Status: Never Smoker Alcohol Use: None Drug Use: None General Adult EDM: Chief Complaint: DYSPNEA/RESPIRATORY DISTRESS HPI: HPI: Patient is a 76 year old female with history of CHF, on oxygen at home, presented to ER for evaluation due to 2-days history of shortness of air with exertion. Patient said when she was he tried to walk to the bathroom or do anything strenuous she having trouble breathing. Patient denies any cough or fever, denies any chest pain. Patient called her news camera operator who instructed her to come to ER for evaluation. Patient was recently admitted here due to CHF exacerbation. Review of Systems: Review of Systems: Constitutional: Denies fever or chills. [] Eyes: Denies change in visual acuity. [] HENT: Denies nasal congestion or sore throat. [] Respiratory: Denies cough, positive for trouble breathing. Cardiovascular: Denies chest pain or edema. [] GI: Denies abdominal pain, nausea, vomiting, bloody stools or diarrhea. [] : Denies dysuria. [] Musculoskeletal: Denies back pain or joint pain. [] Integument: Denies rash. [] Neurologic: Denies headache, focal weakness or sensory changes. [] Endocrine: Denies polyuria or polydipsia. [] Lymphatic: Denies swollen glands. [] Psychiatric: Denies depression or anxiety. [] Heart Score: C/O Chest Pain: N/A Risk Factors: Risk Factors: DM, Current or recent (<one month) smoker, HTN, HLP, family history of CAD, obesity. Risk Scores: Score 0 - 3: 2.5% MACE over next 6 weeks - Discharge Home Score 4 - 6: 20.3% MACE over next 6 weeks - Admit for Clinical Observation Score 7 - 10: 72.7% MACE over next 6 weeks - Early Invasive Strategies Allergies: Allergies: Allergies Coded Allergies Type Severity Reaction Last Updated Verified No Known Drug Allergies 04/27/21 No Physical Exam: PE: Constitutional: Well developed, well nourished, no acute distress, non-toxic appearance. [] HENT: Normocephalic, atraumatic, bilateral external ears normal, oropharynx moist, no oral exudates, nose normal. [] Eyes: PERRLA, EOMI, conjunctiva normal, no discharge. [] Neck: Normal range of motion, no tenderness, supple, no stridor. [] Cardiovascular:Heart rate regular rhythm, no murmur [] Lungs & Thorax: Bilateral breath sounds with rales to auscultation. Abdomen: Bowel sounds normal, soft, no tenderness, no masses, no pulsatile masses. [] Skin: Warm, dry, no erythema, no rash. [] Back: No tenderness, no CVA tenderness. [] Extremities: No tenderness, no cyanosis, no clubbing, ROM intact, bilateral lower extremity with pedal edema 2+ Neurologic: Alert and oriented X 3, normal motor function, normal sensory function, no focal deficits noted. [] Psychologic: Affect normal, judgement normal, mood normal. [] Current Patient Data: Labs: Laboratory Tests Test 06/18/21 19:55 White Blood Count 7.2 x10^3/uL Red Blood Count 3.35 x10^6/uL Hemoglobin 9.4 g/dL Hematocrit 29.0 % Mean Corpuscular Volume 86 fL Mean Corpuscular Hemoglobin 28 pg Mean Corpuscular Hemoglobin Concent 33 g/dL Red Cell Distribution Width 18.9 % Platelet Count 236 x10^3/uL Neutrophils (%) (Auto) 62 % Lymphocytes (%) (Auto) 17 % Monocytes (%) (Auto) 12 % Eosinophils (%) (Auto) 8 % Basophils (%) (Auto) 1 % Neutrophils # (Auto) 4.5 x10^3/uL Lymphocytes # (Auto) 1.2 x10^3/uL Monocytes # (Auto) 0.8 x10^3/uL Eosinophils # (Auto) 0.6 x10^3/uL Basophils # (Auto) 0.1 x10^3/uL Sodium Level 133 mmol/L Potassium Level 4.2 mmol/L Chloride Level 100 mmol/L Carbon Dioxide Level 24 mmol/L Anion Gap 9 Blood Urea Nitrogen 39 mg/dL Creatinine 1.9 mg/dL Estimated GFR (Cockcroft-Gault) 31.0 BUN/Creatinine Ratio 21 Glucose Level 162 mg/dL Calcium Level 8.4 mg/dL Magnesium Level 1.8 mg/dL Total Bilirubin 0.4 mg/dL Aspartate Amino Transf (AST/SGOT) 25 U/L Alanine Aminotransferase (ALT/SGPT) 36 U/L Alkaline Phosphatase 100 U/L Troponin I High Sensitivity 14 ng/L PW-Zst-Y-Type Natriuretic Peptide 94729 pg/mL Total Protein 6.4 g/dL Albumin 2.0 g/dL Albumin/Globulin Ratio 0.5 Current Medications Medications (Trade) Dose Ordered Sig/Jeremy Route PRN Reason Start Time Stop Time Status Last Admin Dose Admin Furosemide (Lasix) 40 mg 1X ONCE IVP 06/18/21 21:00 06/18/21 21:01 DC Vital Signs: Vital Signs Date Time Temp Pulse Resp B/P (MAP) Pulse Ox O2 Delivery O2 Flow Rate FiO2 06/18/21 19:19 97.0 88 20 120/60 (80) 95 Nasal Cannula 2.0 97.0 EKG: EKG: EKG was done at 1926, heart rate 80 bpm, paced rhythm Radiology/Procedures: Radiology/Procedures: [][facility] [address] [place] [address] IMAGING REPORT Signed PATIENT: MAJO CONNOLLY JACCOUNT: [id number] : 1945 LOCATION: ER AGE: 76 SEX: F EXAM STATUS: PRE ER ORD. PHYSICIAN: JESUS VILLALPANDO DO REASON: SOA PROCEDURE: PORTABLE CHEST 1V INDICATION: Reason: SOA / Spl. Instructions: / History: COMPARISON: May 03, 2021 FINDINGS: Single view of chest obtained. Enlarged cardiomediastinal Silhouette with poststernotomy changes and artificial valve. AICD is seen. Degenerative changes of the spine with mild scoliotic curvature. The left lower lung is obscured by the overlying enlarged cardiac silhouette without definite consolidation elsewhere in the lungs. IMPRESSION: * No definite focal airspace consolidation. * Enlarged cardiomediastinal silhouette with postoperative changes and AICD. Electronically signed by: Wander Ivy MD (06/18/2021 8:00 PM) [id number] DICTATED and SIGNED BY: WANDER IVY MD DATE: 06/18/211957 Course & Med Decision Making: Course & Med Decision Making Pertinent Labs and Imaging studies reviewed. (See chart for details) Patient is a 76-year-old female who presented to ER due to trouble breathing with exertion. Patient has CHF exacerbation. Patient is on oxygen at home. Patient will be admitted to hospital for further evaluation and treatment. Dragon Disclaimer: Dragon Disclaimer: This electronic medical record was generated, in whole or in part, using a voice recognition dictation system. Departure Departure Impression: Primary Impression: Acute exacerbation of CHF (congestive heart failure) Disposition: ADMITTED INPATIENT Admitting Physician: DAVID (Dr. Sanon) Condition: STABLE Referrals: SHAHAB GARCIA MD (PCP) JESUS VILLALPANDO DO Jun 18, 2021 19:37
[2021-06-18 20:01] LABS: BASO # 0.1 x10^3/uL (0.0-0.2); BASO % 1 % (0-3); EOS # 0.6 x10^3/uL (0.0-0.7); EOS % 8 % (0-3); HEMOGLOBIN 9.4 g/dL (12.0-15.5); LYMPH # 1.2 x10^3/uL (1.0-4.8); LYMPH % 17 % (24-48); MEAN CORPUSCULAR HEMOGLOBIN 28 pg (25-35); MEAN CORPUSCULAR HGB CONC 33 g/dL (31-37); MEAN CORPUSCULAR VOLUME 86 fL (79-100); MONO # 0.8 x10^3/uL (0.0-1.1); MONO % 12 % (0-9); NEUT # 4.5 x10^3/uL (1.8-7.7); NEUT % 62 % (31-73); PLATELET COUNT 236 x10^3/uL (140-400); RED BLOOD COUNT 3.35 x10^6/uL (3.50-5.40); RED CELL DISTRIBUTION WIDTH 18.9 % (11.5-14.5); WHITE BLOOD COUNT 7.2 x10^3/uL (4.0-11.0)
--- NOTE | 2021-06-18 20:03 | RAD ---
INDICATION: Reason: SOA / Spl. Instructions: / History: COMPARISON: May 03, 2021 FINDINGS: Single view of chest obtained. Enlarged cardiomediastinal Silhouette with poststernotomy changes and artificial valve. AICD is seen. Degenerative changes of the spine with mild scoliotic curvature. The left lower lung is obscured by the overlying enlarged cardiac silhouette without definite consoli dation elsewhere in the lungs. IMPRESSION: * No definite focal airspace consolidation. * Enlarged cardiomediastinal silhouette with postoperative changes and AICD. Electronically signed by: Rogelio Garcia MD (06/18/2021 8:00 PM) [id number]
[2021-06-18 20:17] LABS: CALCIUM 8.4 mg/dL (8.5-10.1); CREATININE 1.9 mg/dL (0.6-1.0); POTASSIUM 4.2 mmol/L (3.5-5.1)
[2021-06-18 20:30] LABS: ALBUMIN/GLOBULIN RATIO 0.5 (1.0-1.7); MAGNESIUM 1.8 mg/dL (1.8-2.4); TOTAL BILIRUBIN 0.4 mg/dL (0.2-1.0); TOTAL PROTEIN 6.4 g/dL (6.4-8.2)
[2021-06-18] MEDS ORDERED: FUROSEMIDE 40 MG/4 ML VIAL. IVP ONE (21:00)
[2021-06-18 21:26] LABS: % BANDS 5 % (0-9); % EOS 5 % (0-5); % LYMPHS 10 % (24-48); % MONOS 11 % (0-10); % MYELOS 3 % (0-0); % SEGS 66 % (35-66)
[2021-06-18 21:27] LABS: ANISOCYTOSIS SLIGHT; BURR CELLS FEW; OVALOCYTES FEW; PLT ESTIMATE ADEQUATE (ADEQUATE); POIKILOCYTOSIS SLIGHT; SCHISTOCYTES FEW
[2021-06-18 23:49] VITALS: BP 99/57
[2021-06-19] MEDS ORDERED: BUDE10.7 PO (00:37)
[2021-06-19] MEDS ORDERED: BENZ200C47 PO (00:37)
[2021-06-19] MEDS ORDERED: APIX5TAB PO (00:37)
[2021-06-19] MEDS: ALBUTEROL SULFATE 2.5 MG/3 ML NEBU. NEB PRN ×2 (02:00→13:33)
[2021-06-19 02:12] VITALS: BP 122/58
[2021-06-19] MEDS ORDERED: IV DEXTROSE 5% 250 ML BAG. IV PRN (02:30)
[2021-06-19] MEDS ORDERED: DEXTROSE 50% 25 GM / 50ML DISP.SYRIN. IV PRN ×2 (02:30→09:00)
[2021-06-19] MEDS: guaiFENesin ORAL 200 MG/10 ML LIQUID. PO PRN ×3 (02:36→17:09)
[2021-06-19] MEDS: BENZONATATE 100 MG CAPSULE. PO PRN ×3 (02:36→17:09)
[2021-06-19 05:02] LABS: BASO % 1 % (0-3); EOS # 0.5 x10^3/uL (0.0-0.7); EOS % 8 % (0-3); HEMATOCRIT 28.5 % (36.0-47.0); HEMOGLOBIN 9.3 g/dL (12.0-15.5); LYMPH % 16 % (24-48); MEAN CORPUSCULAR HEMOGLOBIN 28 pg (25-35); MEAN CORPUSCULAR HGB CONC 33 g/dL (31-37); MEAN CORPUSCULAR VOLUME 87 fL (79-100); MONO # 0.8 x10^3/uL (0.0-1.1); MONO % 12 % (0-9); NEUT # 4.2 x10^3/uL (1.8-7.7); NEUT % 63 % (31-73); PLATELET COUNT 244 x10^3/uL (140-400); RED BLOOD COUNT 3.27 x10^6/uL (3.50-5.40); RED CELL DISTRIBUTION WIDTH 19.4 % (11.5-14.5); WHITE BLOOD COUNT 6.7 x10^3/uL (4.0-11.0)
[2021-06-19 05:26] LABS: CALCIUM 8.4 mg/dL (8.5-10.1); CREATININE 1.8 mg/dL (0.6-1.0); MAGNESIUM 1.7 mg/dL (1.8-2.4); POTASSIUM 4.5 mmol/L (3.5-5.1)
--- NOTE | 2021-06-19 06:12 | EKG ---
[address] [place] [id number] Test Date: 2021-06-18 Test Time: 19:25:20 Pat Name: MAJO CONNOLLY Department: Room: 2 Gender: F Natural Resource Officer: : 1945 Requested By: JESUS VILLALPANDO Order Number: [id number] Reading MD: Sunny Garza Measurements Intervals [place] Rate: 80 P: IA: QRS: -25 QRSD: 136 T: -43 QT: 410 QTc: 477 Interpretive Statements ATRIAL PACED RHYTHM LEFTWARD AXIS RIGHT BUNDLE BRANCH BLOCK ABNORMAL ECG Electronically Signed On 06-22-2021 18:35:32 CDT by Sunny Garza
[2021-06-19 06:51] VITALS: BP 101/57
[2021-06-19] MEDS: INSULIN LISPRO 300 UNITS/3 ML VIAL. SQ SCH ×5 (08:00→17:00)
--- NOTE | 2021-06-19 08:28 | CONS ---
DATE OF CONSULTATION: 06/18/2021 PULMONARY CONSULTATION ATTENDING PHYSICIAN: Dr. Amador Sanon. REASON FOR CONSULTATION: Dyspnea. HISTORY OF PRESENT ILLNESS: The patient is a 76-year-old female who has a history of COPD. She smoked for 40 years before quitting. She has chronic respiratory failure. She is on home oxygen at 2 liters. She also has cardiomyopathy with an EF of 20%. The patient was brought into the hospital with complaining of mild dyspnea. The patient states her oxygen saturations were low. She has a mild cough, but is nonproductive. No chest pain, no fever, no chills. The patient was seen for further evaluation. I reviewed the patient's chest x-ray, which were done at 16 and 17. Mildly prominent interstitial markings, but no obvious CHF. No focal consolidation observed. I have been asked to see her for further evaluation. PAST MEDICAL HISTORY: History of COPD, history of cardiomyopathy with an EF of 20%, history of type 2 diabetes, GERD, dyslipidemia, hypertension and renal disease. PAST SURGICAL HISTORY: Coronary artery bypass surgery and pacemaker, valve repair and AICD. ALLERGIES: None. MEDICATIONS: Reviewed as listed in the MRAD. She received 1 dose of Lasix. REVIEW OF SYSTEMS: Twelve-point review of system obtained. Pertinent positives discussed in my present illness, otherwise noncontributory. All systems that were negative were reviewed as well. SOCIAL HISTORY: Smoked for 40 years before quitting in 1989. FAMILY HISTORY: Noncontributory to lungs. PHYSICAL EXAMINATION: VITAL SIGNS: Reviewed. Blood pressure 101 systolic. T-max of 99.1, pulse ox 97% on 3 liters. NECK: Supple. LUNGS: With diminished breath sounds bilaterally. CARDIOVASCULAR: With a regular rate. ABDOMEN: Soft, nontender. EXTREMITIES: With some mild ankle edema. LABORATORY DATA: Reviewed. White cell count 6.7, hemoglobin 9.3 and platelets are 244. BUN 38 and creatinine of 1.8. IMPRESSION: 1. Acute on chronic hypoxic respiratory failure secondary to combination of underlying severe cardiomyopathy and acute exacerbation of chronic obstructive pulmonary disease. 2. Underlying cardiomyopathy with an ejection fraction of 20%. Status post automatic implantable cardioverter-defibrillator and mitral valve repair. 3. Underlying chronic obstructive pulmonary disease, which could be severe. 4. No definite consolidation seen on the chest x-ray. RECOMMENDATIONS: 1. Continue present oxygen, keep saturation 92% and above. 2. Maximize bronchodilator treatment by adding DuoNebs and Pulmicort. 3. If no response, then we will add Solu-Medrol. 4. Continue p.r.n. diuretics. 5. Follow Cardiology recommendations. 6. Discussed with RN. We will follow along with you. BELLA DR: Tamia TID: [id number]
--- NOTE | 2021-06-19 08:46 | PDOC1 ---
History and Physical Date of Service: DOS: DATE: 06/19/21 TIME: 08:39 Chief Complaint: Chief Complain: Shortness of breath History of Present Illness: HPI: 76 year old female with history of CHF, on oxygen at home, presented to ER for evaluation due to 2-days history of shortness of air with exertion. Patient said when she was he tried to walk to the bathroom or do anything strenuous she having trouble breathing. Patient denies any cough or fever, denies any chest pain. Patient called her business performance advisor who instructed her to come to ER for evaluation. Patient was recently admitted here due to CHF exacerbation. Past Medical/Surgical History: PMH/PSH: Past Medical History: Asthma, CHF, COPD, Diabetes-Type II, GERD, High Cholesterol, Heart Disease, Hypertension, Renal Disease Past Surgical History: Coronary Bypass Surgery, Pacemaker, VALVE REPAIR x's 2, AICD Allergies: Allergies: Coded Allergies: No Known Drug Allergies (Unverified , 04/27/21) Family History: Family History: Reviewed with no relative findings in the chart Social History: Social History: Smoking Status: Never Smoker Alcohol Use: None Drug Use: None Current Medications: Current Medications Current Medications Furosemide (Lasix) 40 mg 1X ONCE IVP Last administered on 06/18/21at 21:50; Start 06/18/21 at 21:00; Stop 06/18/21 at 21:01; Status DC Albuterol Sulfate (Ventolin Neb Soln) 2.5 mg PRN Q6HRS PRN NEB SHORTNESS OF BREATH Last administered on 06/19/21at 02:00; Start 06/19/21 at 02:15 Benzonatate (Tessalon Perle) 200 mg PRN TID PRN PO COUGH 2nd choice Last administered on 06/19/21at 02:36; Start 06/19/21 at 02:15 Guaifenesin (Robitussin) 200 mg PRN Q4HRS PRN PO COUGH 1st choice Last administered on 06/19/21at 02:36; Start 06/19/21 at 02:30 Insulin Human Lispro (HumaLOG) 0-7 UNITS TIDWMEALS SQ ; Start 06/19/21 at 08:00 Dextrose (Dextrose 50%-Water Syringe) 12.5 gm PRN Q15MIN PRN IV SEE COMMENTS; Start 06/19/21 at 02:30 Dextrose (Iv Dextrose 5%) 250 ml PRN Q15MIN PRN IV SEE COMMENTS; Start 06/19/21 at 02:30 Albuterol/ Ipratropium (Duoneb) 3 ml RTQID NEB ; Start 06/19/21 at 12:00 Budesonide (Pulmicort) 0.5 mg RTBID NEB ; Start 06/19/21 at 08:30 Active Scripts Active Miralax (Polyethylene Glycol 3350) 17 Gm Powd.pack 1 Packet PO DAILY 30 Days dissolve in water Basaglar Kwikpen U-100 (Insulin Glargine,Hum.rec.anlog) 100 Unit/1 Ml Insuln.pen 10 Unit SQ QHS 30 Days Codeine-Guaifen 10-100 mg/5 ml (Guaifenesin/Codeine Phosphate) 120 Ml Liquid 5 Ml PO TID PRN MDD 20 Milliliter(s) 4 Days Reported Breztri Aerosphere Inhaler (Budesonide/Glycopyr/Formoterol) 10.7 Gm Hfa.aer.ad 2 Puff PO BID Benzonatate 200 Mg Capsule 1 Cap PO TID PRN Eliquis (Apixaban) 5 Mg Tablet 1 Tab PO BID Klor-Con 10 (Potassium Chloride) 10 Meq Tablet.er 2 Meq PO DAILY Omeprazole 40 Mg Capsule.dr 1 Cap PO BID Olmesartan Medoxomil 40 Mg Tablet 1 Tab PO DAILY Carvedilol 12.5 Mg Tablet 1 Tab PO BID Duoneb 0.5-3(2.5) Mg/3 Ml (Albuterol/Ipratropium) 3 Ml Ampul.neb 1 Vial NEB QID PRN Vitamin D3 (Cholecalciferol (Vitamin D3)) 1,250 Mcg Capsule 1,250 Mcg PO DAILY Bumetanide 1 Mg Tablet 1 Mg PO DAILY Aspir 81 (Aspirin) 81 Mg Tablet.dr 1 Tab PO DAILY Atorvastatin Calcium 20 Mg Tablet 1 Tab PO HS ROS: Review of Systems Review of System REVIEW OF SYSTEMS: GENERAL: Denies weakness SKIN: No bruising, hair changes or rashes. EYES: No blurred, double or loss of vision. NOSE AND THROAT: No history of nosebleeds, hoarseness or sore throat. HEART: No history of palpitations, chest pain or shortness of breath on exertion. LUNGS: Denies cough, hemoptysis, wheezing or shortness of breath. GASTROINTESTINAL: Denies changes in appetite, nausea, vomiting, diarrhea or constipation. GENITOURINARY: No history of frequency, urgency, hesitancy or nocturia. NEUROLOGIC: Denies history of numbness, tingling, or tremor. PSYCHIATRIC: No history of panic, anxiety or depression. ENDOCRINE: No history of heat or cold intolerance, polyuria or polydipsia. EXTREMITIES: Denies joint pain, pain on walking or stiffness. Physical Exam: Vital Signs: Vital Signs Date Time Temp Pulse Resp B/P (MAP) Pulse Ox O2 Delivery O2 Flow Rate FiO2 06/19/21 06:51 99.1 80 16 101/57 (72) 97 Nasal Cannula 3.0 99.1 Physcial Exam: General: Well developed, well nourished, mild distress HEENT: Pupils equally round and reactive to light, EOMI, no discharge, normal conjunctiva Neck: Supple, no nuchal rigidity, no JVD, trachea midline, no tenderness Cardiac: RRR, no murmurs, no gallops, no rubs Chest/Lungs: CTAB, no wheeze, bilateral rhonchi. Moving air well throughout both lungs Abdomen: soft, non-distended, no guarding, no peritoneal signs, non-tender Back: No tenderness Extremities: no edema, pulses intact, non-tender,capillary refill <3 sec bilateral upper and lower extremities, Neuro: Alert and oriented x 4, no focal deficits, normal speech Labs: Labs: Laboratory Tests Test 06/18/21 19:55 06/19/21 02:00 06/19/21 07:29 White Blood Count 7.2 x10^3/uL (4.0-11.0) 6.7 x10^3/uL (4.0-11.0) Red Blood Count 3.35 x10^6/uL (3.50-5.40) 3.27 x10^6/uL (3.50-5.40) Hemoglobin 9.4 g/dL (12.0-15.5) 9.3 g/dL (12.0-15.5) Hematocrit 29.0 % (36.0-47.0) 28.5 % (36.0-47.0) Mean Corpuscular Volume 86 fL (79-100) 87 fL (79-100) Mean Corpuscular Hemoglobin 28 pg (25-35) 28 pg (25-35) Mean Corpuscular Hemoglobin Concent 33 g/dL (31-37) 33 g/dL (31-37) Red Cell Distribution Width 18.9 % (11.5-14.5) 19.4 % (11.5-14.5) Platelet Count 236 x10^3/uL (140-400) 244 x10^3/uL (140-400) Neutrophils (%) (Auto) 62 % (31-73) 63 % (31-73) Lymphocytes (%) (Auto) 17 % (24-48) 16 % (24-48) Monocytes (%) (Auto) 12 % (0-9) 12 % (0-9) Eosinophils (%) (Auto) 8 % (0-3) 8 % (0-3) Basophils (%) (Auto) 1 % (0-3) 1 % (0-3) Neutrophils # (Auto) 4.5 x10^3/uL (1.8-7.7) 4.2 x10^3/uL (1.8-7.7) Lymphocytes # (Auto) 1.2 x10^3/uL (1.0-4.8) 1.0 x10^3/uL (1.0-4.8) Monocytes # (Auto) 0.8 x10^3/uL (0.0-1.1) 0.8 x10^3/uL (0.0-1.1) Eosinophils # (Auto) 0.6 x10^3/uL (0.0-0.7) 0.5 x10^3/uL (0.0-0.7) Basophils # (Auto) 0.1 x10^3/uL (0.0-0.2) 0.0 x10^3/uL (0.0-0.2) Segmented Neutrophils % 66 % (35-66) Band Neutrophils % 5 % (0-9) Lymphocytes % 10 % (24-48) Monocytes % 11 % (0-10) Eosinophils % 5 % (0-5) Myelocytes % 3 % (0-0) Platelet Estimate Adequate (ADEQUATE) Poikilocytosis Slight Anisocytosis Slight Ovalocytes Few Cristiana Cells Few Schistocytes Few Sodium Level 133 mmol/L (136-145) 139 mmol/L (136-145) Potassium Level 4.2 mmol/L (3.5-5.1) 4.5 mmol/L (3.5-5.1) Chloride Level 100 mmol/L (98-107) 100 mmol/L (98-107) Carbon Dioxide Level 24 mmol/L (21-32) 30 mmol/L (21-32) Anion Gap 9 (6-14) 9 (6-14) Blood Urea Nitrogen 39 mg/dL (7-20) 38 mg/dL (7-20) Creatinine 1.9 mg/dL (0.6-1.0) 1.8 mg/dL (0.6-1.0) Estimated GFR (Cockcroft-Gault) 31.0 33.0 BUN/Creatinine Ratio 21 (6-20) Glucose Level 162 mg/dL (70-99) 167 mg/dL (70-99) Calcium Level 8.4 mg/dL (8.5-10.1) 8.4 mg/dL (8.5-10.1) Magnesium Level 1.8 mg/dL (1.8-2.4) 1.7 mg/dL (1.8-2.4) Total Bilirubin 0.4 mg/dL (0.2-1.0) Aspartate Amino Transf (AST/SGOT) 25 U/L (15-37) Alanine Aminotransferase (ALT/SGPT) 36 U/L (14-59) Alkaline Phosphatase 100 U/L (46-116) Troponin I High Sensitivity 14 ng/L (4-50) 16 ng/L (4-50) QG-Axp-U-Type Natriuretic Peptide 55947 pg/mL (0-449) Total Protein 6.4 g/dL (6.4-8.2) Albumin 2.0 g/dL (3.4-5.0) Albumin/Globulin Ratio 0.5 (1.0-1.7) Glucose (Fingerstick) 139 mg/dL (70-99) Laboratory Tests Test 06/18/21 19:55 06/19/21 02:00 06/19/21 07:29 White Blood Count 7.2 x10^3/uL (4.0-11.0) 6.7 x10^3/uL (4.0-11.0) Red Blood Count 3.35 x10^6/uL (3.50-5.40) 3.27 x10^6/uL (3.50-5.40) Hemoglobin 9.4 g/dL (12.0-15.5) 9.3 g/dL (12.0-15.5) Hematocrit 29.0 % (36.0-47.0) 28.5 % (36.0-47.0) Mean Corpuscular Volume 86 fL (79-100) 87 fL (79-100) Mean Corpuscular Hemoglobin 28 pg (25-35) 28 pg (25-35) Mean Corpuscular Hemoglobin Concent 33 g/dL (31-37) 33 g/dL (31-37) Red Cell Distribution Width 18.9 % (11.5-14.5) 19.4 % (11.5-14.5) Platelet Count 236 x10^3/uL (140-400) 244 x10^3/uL (140-400) Neutrophils (%) (Auto) 62 % (31-73) 63 % (31-73) Lymphocytes (%) (Auto) 17 % (24-48) 16 % (24-48) Monocytes (%) (Auto) 12 % (0-9) 12 % (0-9) Eosinophils (%) (Auto) 8 % (0-3) 8 % (0-3) Basophils (%) (Auto) 1 % (0-3) 1 % (0-3) Neutrophils # (Auto) 4.5 x10^3/uL (1.8-7.7) 4.2 x10^3/uL (1.8-7.7) Lymphocytes # (Auto) 1.2 x10^3/uL (1.0-4.8) 1.0 x10^3/uL (1.0-4.8) Monocytes # (Auto) 0.8 x10^3/uL (0.0-1.1) 0.8 x10^3/uL (0.0-1.1) Eosinophils # (Auto) 0.6 x10^3/uL (0.0-0.7) 0.5 x10^3/uL (0.0-0.7) Basophils # (Auto) 0.1 x10^3/uL (0.0-0.2) 0.0 x10^3/uL (0.0-0.2) Segmented Neutrophils % 66 % (35-66) Band Neutrophils % 5 % (0-9) Lymphocytes % 10 % (24-48) Monocytes % 11 % (0-10) Eosinophils % 5 % (0-5) Myelocytes % 3 % (0-0) Platelet Estimate Adequate (ADEQUATE) Poikilocytosis Slight Anisocytosis Slight Ovalocytes Few Cristiana Cells Few Schistocytes Few Sodium Level 133 mmol/L (136-145) 139 mmol/L (136-145) Potassium Level 4.2 mmol/L (3.5-5.1) 4.5 mmol/L (3.5-5.1) Chloride Level 100 mmol/L (98-107) 100 mmol/L (98-107) Carbon Dioxide Level 24 mmol/L (21-32) 30 mmol/L (21-32) Anion Gap 9 (6-14) 9 (6-14) Blood Urea Nitrogen 39 mg/dL (7-20) 38 mg/dL (7-20) Creatinine 1.9 mg/dL (0.6-1.0) 1.8 mg/dL (0.6-1.0) Estimated GFR (Cockcroft-Gault) 31.0 33.0 BUN/Creatinine Ratio 21 (6-20) Glucose Level 162 mg/dL (70-99) 167 mg/dL (70-99) Calcium Level 8.4 mg/dL (8.5-10.1) 8.4 mg/dL (8.5-10.1) Magnesium Level 1.8 mg/dL (1.8-2.4) 1.7 mg/dL (1.8-2.4) Total Bilirubin 0.4 mg/dL (0.2-1.0) Aspartate Amino Transf (AST/SGOT) 25 U/L (15-37) Alanine Aminotransferase (ALT/SGPT) 36 U/L (14-59) Alkaline Phosphatase 100 U/L (46-116) Troponin I High Sensitivity 14 ng/L (4-50) 16 ng/L (4-50) XI-Yjq-R-Type Natriuretic Peptide 37371 pg/mL (0-449) Total Protein 6.4 g/dL (6.4-8.2) Albumin 2.0 g/dL (3.4-5.0) Albumin/Globulin Ratio 0.5 (1.0-1.7) Glucose (Fingerstick) 139 mg/dL (70-99) Images: Images PROCEDURE: PORTABLE CHEST 1V INDICATION: Reason: SOA / Spl. Instructions: / History: COMPARISON: May 03, 2021 FINDINGS: Single view of chest obtained. Enlarged cardiomediastinal Silhouette with poststernotomy changes and artificial valve. AICD is seen. Degenerative changes of the spine with mild scoliotic curvature. The left lower lung is obscured by the overlying enlarged cardiac silhouette without definite consolidation elsewhere in the lungs. IMPRESSION: * No definite focal airspace consolidation. * Enlarged cardiomediastinal silhouette with postoperative changes and AICD. Assessment/Plan Assessment/Plan Acute hypoxic respiratory failure Acute CHF exacerbation Acute COPD exacerbation KAMALJIT due to vasomotor nephropathy History of CABG Chronic systolic CHF, LVEF of 20 to 25% on echo 04/14/2021 History of ischemic cardiomyopathy, status post AICD placement. History of diabetes mellitus type 2 History of hypertension History of valvular surgery x2 History of AICD placement Admit to hospitalist service for further management Pulmonology consult Cardiology consult Continue as needed IV diuresis Daily Possible IV steroids Continue duo nebs and Pulmicort Eliquis for DVT prophylaxis Protonix GI prophylaxis ADA diet CODE STATUS full Discussed with RN and SW Disposition inpatient management as above DPOA: Justifications for Admission Other Justification ELIZABETH PINZON MD Jun 19, 2021 08:46
[2021-06-19] MEDS ORDERED: PROCHLORPERAZINE 10 MG/2 ML VIAL. IV PRN (09:00)
[2021-06-19] MEDS ORDERED: DOCUSATE SODIUM 100 MG CAPSULE. PO PRN (09:00)
[2021-06-19] MEDS ORDERED: LORazepam 0.5 MG TABLET PO PRN (09:00)
[2021-06-19] MEDS ORDERED: ACETAMINOPHEN 325 MG TABLET. PO PRN (09:00)
[2021-06-19] MEDS ORDERED: APIXABAN 5 MG TABLET. PO SCH (09:00)
[2021-06-19] MEDS ORDERED: diphenhydrAMINE HCL 25 MG CAPSULE PO PRN ×2 (09:00)
[2021-06-19] MEDS ORDERED: SENNOSIDES 8.6 MG TABLET PO PRN (09:00)
[2021-06-19] MEDS ORDERED: diphenhydrAMINE 50 MG/ML VIAL IVP PRN (09:00)
[2021-06-19] MEDS ORDERED: ONDANSETRON PF 4 MG/2 ML VIAL. IVP PRN (09:00)
[2021-06-19] MEDS ORDERED: ZOLPIDEM 5 MG TABLET. PO PRN (09:00)
[2021-06-19] MEDS ORDERED: ANTI-COAG MONITOR BY PHARMACY. MC PRN (09:15)
--- NOTE | 2021-06-19 09:31 | RAD ---
Exam performed: One view chest HISTORY: CHF, shortness of air DATE OF SERVICE: 06/19/2021. COMPARISON: One view chest from 06/18/2021. FINDINGS: Heart size and mediastinal silhouette is stable. Previous median sternotomy. Bipolar pacemaker. Lungs are well-expanded and essentially clear. The left lung base is suboptimally seen due to enlarged car diac silhouette. IMPRESSION: Stable one view chest without acute pulmonary findings. Stable cardiomegaly. Electronically signed by: Bhavna Maloney MD (06/19/2021 9:29 AM) [facility] HOSPITALMaritza
[2021-06-19] MEDS: ASPIRIN ENTERIC COATED 81 MG TABLET.DR. PO SCH (09:43)
[2021-06-19] MEDS: CARVEDILOL 12.5 MG TABLET. PO SCH ×2 (09:45→17:00)
[2021-06-19] MEDS: PANTOPRAZOLE 40 MG TABLET.DR. PO SCH ×3 (09:45→17:09)
[2021-06-19] MEDS: IPRATRPIUM/ALBUTEROL 0.5/2.5MG 3 ML NEBU. NEB SCH ×3 (10:19→20:33)
[2021-06-19] MEDS: BUDESONIDE 0.5 MG/2 ML NEBU. NEB SCH ×2 (10:20→20:33)
[2021-06-19 11:00] VITALS: BP 133/71
[2021-06-19] MEDS ORDERED: BUMETANIDE 1 MG/4 ML VIAL. IV ONE (11:00)
[2021-06-19 15:00] VITALS: BP 104/56
--- NOTE | 2021-06-19 15:02 | PDOC2 ---
CARDIOLOGY CONSULT NOTE DATE OF SERVICE: DATE: 06/19/21 TIME: 14:56 CHIEF COMPLAINT: Shortness of breath and decreasing oxygen levels HPI: 76-year-old woman with significant past medical history as noted below who presents to the hospital in the setting of worsening shortness of breath. The patient's son actually called our office yesterday describing that the patient was having more shortness of breath and her oxygen levels were falling to the mid 80s with exertion. We had advised the patient to seek evaluation in the emergency department. Patient upon arrival was noted to have significant dyspnea and therefore was admitted to the hospital. The patient currently denies any chest pain but she does have significant dyspnea and is actually sitting up at the side of the bed coughing quite aggressively and having significant respiratory distress. The patient does not have any fevers at home. No anginal discomfort. Cardiac work-up has been done extensively in the past as noted below. PMHX: 1. Coronary artery disease with prior history of saphenous vein bypass to the LAD and diagonal branches with recent cardiac catheterization in April demonstrating patent grafts and no other significant coronary disease 2. Hypertension 3. Dyslipidemia 4. COPD 5. History of pulmonary embolism 6. History of paroxysmal atrial flutter 7. History of ischemic cardiomyopathy with an ejection fraction of 20 to 25% status post ICD SOCHX: She lives at home with her son. No alcohol, tobacco or illicit drug use FAMHX: Noncontributory CURRENT MEDS: Current Medications Medications (Trade) Dose Ordered Sig/Jeremy Route PRN Reason Start Time Stop Time Status Last Admin Dose Admin Furosemide (Lasix) 40 mg 1X ONCE IVP 06/18/21 21:00 06/18/21 21:01 DC 06/18/21 21:50 Albuterol Sulfate (Ventolin Neb Soln) 2.5 mg PRN Q6HRS PRN NEB SHORTNESS OF BREATH 06/19/21 02:15 06/19/21 13:33 Benzonatate (Tessalon Perle) 200 mg PRN TID PRN PO COUGH 2nd choice 06/19/21 02:15 06/19/21 09:48 Guaifenesin (Robitussin) 200 mg PRN Q4HRS PRN PO COUGH 1st choice 06/19/21 02:30 06/19/21 09:48 Albuterol/ Ipratropium (Duoneb) 3 ml RTQID NEB 06/19/21 12:00 06/19/21 10:19 Budesonide (Pulmicort) 0.5 mg RTBID NEB 06/19/21 08:30 06/19/21 10:20 Apixaban (Eliquis) 5 mg BID PO 06/19/21 09:00 06/19/21 09:43 Aspirin (Ecotrin) 81 mg DAILY PO 06/19/21 09:00 06/19/21 09:43 Carvedilol (Coreg) 12.5 mg BIDWMEALS PO 06/19/21 09:00 06/19/21 09:45 Pantoprazole Sodium (Protonix) 40 mg BIDAC PO 06/19/21 09:00 06/19/21 09:45 Bumetanide (Bumex) 1 mg 1X ONCE IV 06/19/21 11:00 06/19/21 11:01 DC 06/19/21 11:19 ALLERGIES: Allergies Coded Allergies Type Severity Reaction Last Updated Verified No Known Drug Allergies 04/27/21 No ROS: Negative for 10 out of 14 systems reviewed unless otherwise mentioned above in HPI PHYSICAL EXAM: Vital Signs/I&O: Vital Signs Date Time Temp Pulse Resp B/P (MAP) Pulse Ox O2 Delivery O2 Flow Rate FiO2 06/19/21 13:34 100 Nasal Cannula 3.0 06/19/21 11:00 97.8 87 22 133/71 (91) 97.8 I & O 0 06/18/21 06/18/21 06/19/21 15:00 23:00 07:00 Intake Total 0 ml Balance 0 ml Physical Exam: The patient is in moderate distress. The patient appeared well nourished and normally developed. Head exam is unremarkable. No scleral icterus or corneal arcus noted. Neck is without jugular venous distension, thyromegaly, or carotid bruits. Carotid upstrokes are brisk bilaterally. Lungs notable for decreased breath sound Cardiac exam reveals the PMI to be normally sized and situated. Rhythm is regular. First and second heart sounds normal. No murmurs, rubs or gallops. Abdominal exam reveals normal bowel sounds, no masses, no organomegaly and no aortic enlargement. Extremities are nonedematous and both femoral and pedal pulses are normal. Msk: No traumua Neuro: No focal deficits DIAGNOSTIC TESTING: EKG, prior cardiac catheterization and laboratory studies reviewed. Chest x-ray does not demonstrate any significant heart failure although BNP is elevated it is reduced compared to her previous visit Of note, diagnostic studies demonstrate significant anemia compared to a month ago with a hemoglobin of 9 Lab Laboratory Tests Test 06/18/21 19:55 06/19/21 02:00 06/19/21 07:29 06/19/21 12:13 White Blood Count 7.2 x10^3/uL (4.0-11.0) 6.7 x10^3/uL (4.0-11.0) Red Blood Count 3.35 x10^6/uL (3.50-5.40) L 3.27 x10^6/uL (3.50-5.40) L Hemoglobin 9.4 g/dL (12.0-15.5) L 9.3 g/dL (12.0-15.5) L Hematocrit 29.0 % (36.0-47.0) L 28.5 % (36.0-47.0) L Mean Corpuscular Volume 86 fL (79-100) 87 fL (79-100) Mean Corpuscular Hemoglobin 28 pg (25-35) 28 pg (25-35) Mean Corpuscular Hemoglobin Concent 33 g/dL (31-37) 33 g/dL (31-37) Red Cell Distribution Width 18.9 % (11.5-14.5) H 19.4 % (11.5-14.5) H Platelet Count 236 x10^3/uL (140-400) 244 x10^3/uL (140-400) Neutrophils (%) (Auto) 62 % (31-73) 63 % (31-73) Lymphocytes (%) (Auto) 17 % (24-48) L 16 % (24-48) L Monocytes (%) (Auto) 12 % (0-9) H 12 % (0-9) H Eosinophils (%) (Auto) 8 % (0-3) H 8 % (0-3) H Basophils (%) (Auto) 1 % (0-3) 1 % (0-3) Neutrophils # (Auto) 4.5 x10^3/uL (1.8-7.7) 4.2 x10^3/uL (1.8-7.7) Lymphocytes # (Auto) 1.2 x10^3/uL (1.0-4.8) 1.0 x10^3/uL (1.0-4.8) Monocytes # (Auto) 0.8 x10^3/uL (0.0-1.1) 0.8 x10^3/uL (0.0-1.1) Eosinophils # (Auto) 0.6 x10^3/uL (0.0-0.7) 0.5 x10^3/uL (0.0-0.7) Basophils # (Auto) 0.1 x10^3/uL (0.0-0.2) 0.0 x10^3/uL (0.0-0.2) Segmented Neutrophils % 66 % (35-66) Band Neutrophils % 5 % (0-9) Lymphocytes % 10 % (24-48) L Monocytes % 11 % (0-10) H Eosinophils % 5 % (0-5) Myelocytes % 3 % (0-0) H Platelet Estimate Adequate (ADEQUATE) Poikilocytosis Slight Anisocytosis Slight Ovalocytes Few Cristiana Cells Few Schistocytes Few Sodium Level 133 mmol/L (136-145) L 139 mmol/L (136-145) Potassium Level 4.2 mmol/L (3.5-5.1) 4.5 mmol/L (3.5-5.1) Chloride Level 100 mmol/L (98-107) 100 mmol/L (98-107) Carbon Dioxide Level 24 mmol/L (21-32) 30 mmol/L (21-32) Anion Gap 9 (6-14) 9 (6-14) Blood Urea Nitrogen 39 mg/dL (7-20) H 38 mg/dL (7-20) H Creatinine 1.9 mg/dL (0.6-1.0) H 1.8 mg/dL (0.6-1.0) H Estimated GFR (Cockcroft-Gault) 31.0 33.0 BUN/Creatinine Ratio 21 (6-20) H Glucose Level 162 mg/dL (70-99) H 167 mg/dL (70-99) H Calcium Level 8.4 mg/dL (8.5-10.1) L 8.4 mg/dL (8.5-10.1) L Total Bilirubin 0.4 mg/dL (0.2-1.0) Aspartate Amino Transf (AST/SGOT) 25 U/L (15-37) Alkaline Phosphatase 100 U/L (46-116) Troponin I High Sensitivity 14 ng/L (4-50) 16 ng/L (4-50) Total Protein 6.4 g/dL (6.4-8.2) Albumin 2.0 g/dL (3.4-5.0) L Albumin/Globulin Ratio 0.5 (1.0-1.7) L Glucose (Fingerstick) 139 mg/dL (70-99) H 153 mg/dL (70-99) H Laboratory Tests 06/19/21 02:00 ASSESSMENT: 1. Acute on chronic respiratory failure likely secondary to COPD exacerbation 2. Chronic systolic heart failure 3. Chronic ischemic cardiomyopathy 4. Acute anemia with five-point hemoglobin drop over the last 1 month 5. Multiple other cardiovascular comorbidities as noted above PLAN: 1. Given the patient's atrial fibrillation burden is only 2.9% on most recent device testing and current EKG demonstrating sinus rhythm we will hold her Eliquis in light of her significant hemoglobin drop over the last 4 weeks. 2. Continue aggressive pulmonary care. 3. May need right heart catheterization depending on progress. Supportive care for now. Discussed with family at bedside. GILA SALOMON MD Jun 19, 2021 15:02
[2021-06-19 19:55] VITALS: BP 114/54
--- NOTE | 2021-06-19 20:00 | NUR ---
Patient having coughing spells throughout the day & desating needing temporary use of more oxygen at 4-5L for a few minutes. Patient also noted to get very anxious & this RN is worried she is aspirating. Patient made NPO & order placed for ST to see patient.
[2021-06-19] MEDS: ATORVASTATIN CALCIUM 20 MG TABLET PO SCH (21:00)
--- NOTE | 2021-06-19 21:00 | NUR ---
Pt short of breath, respiratory notifed, Dr Baker, Dr Sheriff notified, new orders received ,see orders, will cont to monitor pt status and safety. pmrn
[2021-06-19] MEDS ORDERED: methylPREDNISolone SOD SUCC PF 40 MG/ML VIAL. IV ONE (21:15)
[2021-06-19] MEDS ORDERED: FUROSEMIDE 20 MG/2 ML VIAL. IVP ONE (21:15)
[2021-06-19] MEDS ORDERED: FUROSEMIDE 40 MG/4 ML VIAL. IVP ONE (21:30)
[2021-06-19 22:23] VITALS: BP 111/56
[2021-06-19 22:24] LABS: BASE EXCESS ABG 3 mmol/L (-3-3); HCO3 ABG 27 mmol/L (21-28); PCO2 ABG 38 mmHg (35-46); SAT O2 ABG 77 % (92-99)
[2021-06-19 22:26] LABS: FIO2 ABG 3LNC; PO2 ABG 42 mmHg (65-108)
[2021-06-19] MEDS: INSULIN GLARGINE SYRINGE. SQ SCH (23:47)
[2021-06-20 02:17] VITALS: BP 114/55
[2021-06-20] MEDS: methylPREDNISolone SOD SUCC PF 40 MG/ML VIAL. IV SCH ×3 (06:40→17:59)
[2021-06-20 06:50] LABS: BASO % 0 % (0-3); EOS % 0 % (0-3); HEMATOCRIT 29.7 % (36.0-47.0); HEMOGLOBIN 9.6 g/dL (12.0-15.5); LYMPH # 0.5 x10^3/uL (1.0-4.8); LYMPH % 6 % (24-48); MEAN CORPUSCULAR HEMOGLOBIN 28 pg (25-35); MEAN CORPUSCULAR HGB CONC 32 g/dL (31-37); MEAN CORPUSCULAR VOLUME 87 fL (79-100); MONO # 0.2 x10^3/uL (0.0-1.1); MONO % 3 % (0-9); NEUT % 90 % (31-73); PLATELET COUNT 284 x10^3/uL (140-400); RED BLOOD COUNT 3.43 x10^6/uL (3.50-5.40); RED CELL DISTRIBUTION WIDTH 18.5 % (11.5-14.5); WHITE BLOOD COUNT 7.8 x10^3/uL (4.0-11.0)
[2021-06-20 07:00] VITALS: BP 126/62
[2021-06-20 07:19] LABS: CALCIUM 9.4 mg/dL (8.5-10.1); CREATININE 1.9 mg/dL (0.6-1.0); MAGNESIUM 1.9 mg/dL (1.8-2.4); PHOSPHORUS 4.7 mg/dL (2.6-4.7); POTASSIUM 4.9 mmol/L (3.5-5.1)
[2021-06-20] MEDS: PANTOPRAZOLE 40 MG TABLET.DR. PO SCH ×3 (07:30→17:26)
[2021-06-20] MEDS: IPRATRPIUM/ALBUTEROL 0.5/2.5MG 3 ML NEBU. NEB SCH ×4 (07:32→20:37)
[2021-06-20] MEDS: BUDESONIDE 0.5 MG/2 ML NEBU. NEB SCH ×2 (07:32→20:40)
[2021-06-20] MEDS: INSULIN LISPRO 300 UNITS/3 ML VIAL. SQ SCH ×4 (08:00→17:29)
[2021-06-20] MEDS: CARVEDILOL 12.5 MG TABLET. PO SCH ×3 (08:00→17:27)
[2021-06-20] MEDS: ASPIRIN ENTERIC COATED 81 MG TABLET.DR. PO SCH ×2 (08:25→09:00)
--- NOTE | 2021-06-20 09:08 | NUR ---
NURSING PT ON BIPAP AT THIS TIME. REMAINS NPO UNTIL SEEN BY SPEECH THERAPY 2/2 CONCERNS ABOUT ASPIRATION. AM MEDICATIONS HELD UNTIL SAFE SWALLOW ESTABLISHED. BLOOD SUGAR ELEVATED 2/2 SOLUMEDROL. WILL CONTINUE TO MONTIOR.
[2021-06-20 11:00] VITALS: BP 133/61
--- NOTE | 2021-06-20 11:19 | PDOC ---
RAÚL GARCIA EDITOR MANAGING DIRECTOR 06/20/21 1119: CARDIO Progress Notes Date and Time Date of Service 06/20/21 Time of Evaluation 1115 Subjective Subjective: No Chest Pain, No Palpitations, No Dizziness, Other (breathign improved ) Vitals Vitals Vital Signs Date Time Temp Pulse Resp B/P (MAP) Pulse Ox O2 Delivery O2 Flow Rate FiO2 06/20/21 08:10 Bi-pap 06/20/21 07:35 100 06/20/21 07:00 98.0 80 24 126/62 (83) 60.0 98.0 Weight Weight [ ] Input and Output Intake and Output Intake and Output 06/20/21 07:00 Intake Total 0 ml Balance 0 ml Intake Oral 0 ml # Voids 2 # Bowel Movements 1 Laboratory Labs Laboratory Tests Test 06/19/21 12:13 06/19/21 17:23 06/19/21 20:44 06/19/21 21:05 Glucose (Fingerstick) 153 mg/dL (70-99) 149 mg/dL (70-99) 129 mg/dL (70-99) O2 Saturation 77 % (92-99) Arterial Blood pH 7.47 (7.35-7.45) Arterial Blood pCO2 at Patient Temp 38 mmHg (35-46) Arterial Blood pO2 at Patient Temp 42 mmHg (65-108) Arterial Blood HCO3 27 mmol/L (21-28) Arterial Blood Base Excess 3 mmol/L (-3-3) FiO2 3lnc Test 06/20/21 05:15 06/20/21 08:23 White Blood Count 7.8 x10^3/uL (4.0-11.0) Red Blood Count 3.43 x10^6/uL (3.50-5.40) Hemoglobin 9.6 g/dL (12.0-15.5) Hematocrit 29.7 % (36.0-47.0) Mean Corpuscular Volume 87 fL (79-100) Mean Corpuscular Hemoglobin 28 pg (25-35) Mean Corpuscular Hemoglobin Concent 32 g/dL (31-37) Red Cell Distribution Width 18.5 % (11.5-14.5) Platelet Count 284 x10^3/uL (140-400) Neutrophils (%) (Auto) 90 % (31-73) Lymphocytes (%) (Auto) 6 % (24-48) Monocytes (%) (Auto) 3 % (0-9) Eosinophils (%) (Auto) 0 % (0-3) Basophils (%) (Auto) 0 % (0-3) Neutrophils # (Auto) 7.0 x10^3/uL (1.8-7.7) Lymphocytes # (Auto) 0.5 x10^3/uL (1.0-4.8) Monocytes # (Auto) 0.2 x10^3/uL (0.0-1.1) Eosinophils # (Auto) 0.0 x10^3/uL (0.0-0.7) Basophils # (Auto) 0.0 x10^3/uL (0.0-0.2) Sodium Level 140 mmol/L (136-145) Potassium Level 4.9 mmol/L (3.5-5.1) Chloride Level 101 mmol/L (98-107) Carbon Dioxide Level 26 mmol/L (21-32) Anion Gap 13 (6-14) Blood Urea Nitrogen 44 mg/dL (7-20) Creatinine 1.9 mg/dL (0.6-1.0) Estimated GFR (Cockcroft-Gault) 31.0 Glucose Level 160 mg/dL (70-99) Calcium Level 9.4 mg/dL (8.5-10.1) Phosphorus Level 4.7 mg/dL (2.6-4.7) Magnesium Level 1.9 mg/dL (1.8-2.4) Glucose (Fingerstick) 183 mg/dL (70-99) Physical Exam HEENT: Neck Supple W Full Motion Chest: Symmetric LUNGS: Other (diminished bases) Heart: RRR Abdomen: Soft N/T Extremities: Other (trace pedal edema ) Neurology: alert, oriented, follow commands Assessment Assessment 1. Acute on chronic respiratory failure likely secondary to COPD exacerbation. VQ planned to r/o PE given history 2. Chronic systolic heart failure; CXR without congestion. s/p IV Lasix 3. Chronic ischemic cardiomyopathy; EF at 25%. s/p AICD ([employer]) 4. Acute anemia with five-point hemoglobin drop over the last 1 month. Reports dark stool x1 last week 5. PAFIB; AFIB burden 2.9% per recent device check. Presently SR 6. CAD/valvular disease: past CABG and TV/MV repair. clinically stable 7. HTN: controlled 8. Diabetes, II 9. CKD 10. H/o PE, DVT Recommendation Continue BB for rate control Eliquis held with anemia Secondary prevention. Continue ASA HF optimization Lasix PRN Justicifation of Admission Dx: Justifications for Admission: Justification of Admission Dx: N/A KELLY HENNING MD 06/20/212109: CARDIO Progress Notes Assessment Assessment Patient seen and examined. Agree with FIRST ASSISTANT's assessment and plan PAF maintaining SR Chr systolic HF compensated CAD clinically stable Valvulopathy s/p TV/MV repair stable Continue current medical regimen RAÚL GARCIA APRN Jun 20, 2021 11:19 KELLY HENNING MD Jun 20, 2021 21:10
--- NOTE | 2021-06-20 11:22 | PDOC ---
PULMONARY PROGRESS NOTES DATE: 06/20/21 TIME: 11:20 Subjective Patient had an episode of hypoxia and dyspnea last night requiring BiPAP. Feels better today and on nasal cannula again. Denies any chest pain. Vitals Vital Signs Date Time Temp Pulse Resp B/P (MAP) Pulse Ox O2 Delivery O2 Flow Rate FiO2 06/20/21 08:10 Bi-pap 06/20/21 07:35 100 06/20/21 07:00 98.0 80 24 126/62 (83) 60.0 98.0 General: Alert, No acute distress Lungs: Other (Decreased breath sounds bilaterally) Cardiovascular: S1, S2 Abdomen: Soft Neuro Exam: Alert Extremities: No Edema Labs Laboratory Tests Test 06/18/21 19:55 06/19/21 02:00 06/19/21 07:29 06/19/21 12:13 White Blood Count 7.2 x10^3/uL (4.0-11.0) 6.7 x10^3/uL (4.0-11.0) Red Blood Count 3.35 x10^6/uL (3.50-5.40) 3.27 x10^6/uL (3.50-5.40) Hemoglobin 9.4 g/dL (12.0-15.5) 9.3 g/dL (12.0-15.5) Hematocrit 29.0 % (36.0-47.0) 28.5 % (36.0-47.0) Mean Corpuscular Volume 86 fL (79-100) 87 fL (79-100) Mean Corpuscular Hemoglobin 28 pg (25-35) 28 pg (25-35) Mean Corpuscular Hemoglobin Concent 33 g/dL (31-37) 33 g/dL (31-37) Red Cell Distribution Width 18.9 % (11.5-14.5) 19.4 % (11.5-14.5) Platelet Count 236 x10^3/uL (140-400) 244 x10^3/uL (140-400) Neutrophils (%) (Auto) 62 % (31-73) 63 % (31-73) Lymphocytes (%) (Auto) 17 % (24-48) 16 % (24-48) Monocytes (%) (Auto) 12 % (0-9) 12 % (0-9) Eosinophils (%) (Auto) 8 % (0-3) 8 % (0-3) Basophils (%) (Auto) 1 % (0-3) 1 % (0-3) Neutrophils # (Auto) 4.5 x10^3/uL (1.8-7.7) 4.2 x10^3/uL (1.8-7.7) Lymphocytes # (Auto) 1.2 x10^3/uL (1.0-4.8) 1.0 x10^3/uL (1.0-4.8) Monocytes # (Auto) 0.8 x10^3/uL (0.0-1.1) 0.8 x10^3/uL (0.0-1.1) Eosinophils # (Auto) 0.6 x10^3/uL (0.0-0.7) 0.5 x10^3/uL (0.0-0.7) Basophils # (Auto) 0.1 x10^3/uL (0.0-0.2) 0.0 x10^3/uL (0.0-0.2) Segmented Neutrophils % 66 % (35-66) Band Neutrophils % 5 % (0-9) Lymphocytes % 10 % (24-48) Monocytes % 11 % (0-10) Eosinophils % 5 % (0-5) Myelocytes % 3 % (0-0) Platelet Estimate Adequate (ADEQUATE) Poikilocytosis Slight Anisocytosis Slight Ovalocytes Few [place]cher [place] Cells Few Schistocytes Few Sodium Level 133 mmol/L (136-145) 139 mmol/L (136-145) Potassium Level 4.2 mmol/L (3.5-5.1) 4.5 mmol/L (3.5-5.1) Chloride Level 100 mmol/L (98-107) 100 mmol/L (98-107) Carbon Dioxide Level 24 mmol/L (21-32) 30 mmol/L (21-32) Anion Gap 9 (6-14) 9 (6-14) Blood Urea Nitrogen 39 mg/dL (7-20) 38 mg/dL (7-20) Creatinine 1.9 mg/dL (0.6-1.0) 1.8 mg/dL (0.6-1.0) Estimated GFR (Cockcroft-Gault) 31.0 33.0 BUN/Creatinine Ratio 21 (6-20) Glucose Level 162 mg/dL (70-99) 167 mg/dL (70-99) Calcium Level 8.4 mg/dL (8.5-10.1) 8.4 mg/dL (8.5-10.1) Magnesium Level 1.8 mg/dL (1.8-2.4) 1.7 mg/dL (1.8-2.4) Total Bilirubin 0.4 mg/dL (0.2-1.0) Aspartate Amino Transf (AST/SGOT) 25 U/L (15-37) Alanine Aminotransferase (ALT/SGPT) 36 U/L (14-59) Alkaline Phosphatase 100 U/L (46-116) Troponin I High Sensitivity 14 ng/L (4-50) 16 ng/L (4-50) FC-Dop-V-Type Natriuretic Peptide 20454 pg/mL (0-449) Total Protein 6.4 g/dL (6.4-8.2) Albumin 2.0 g/dL (3.4-5.0) Albumin/Globulin Ratio 0.5 (1.0-1.7) Glucose (Fingerstick) 139 mg/dL (70-99) 153 mg/dL (70-99) Test 06/19/21 17:23 06/19/21 20:44 06/19/21 21:05 06/20/21 05:15 Glucose (Fingerstick) 149 mg/dL (70-99) 129 mg/dL (70-99) O2 Saturation 77 % (92-99) Arterial Blood pH 7.47 (7.35-7.45) Arterial Blood pCO2 at Patient Temp 38 mmHg (35-46) Arterial Blood pO2 at Patient Temp 42 mmHg (65-108) Arterial Blood HCO3 27 mmol/L (21-28) Arterial Blood Base Excess 3 mmol/L (-3-3) FiO2 3lnc White Blood Count 7.8 x10^3/uL (4.0-11.0) Red Blood Count 3.43 x10^6/uL (3.50-5.40) Hemoglobin 9.6 g/dL (12.0-15.5) Hematocrit 29.7 % (36.0-47.0) Mean Corpuscular Volume 87 fL (79-100) Mean Corpuscular Hemoglobin 28 pg (25-35) Mean Corpuscular Hemoglobin Concent 32 g/dL (31-37) Red Cell Distribution Width 18.5 % (11.5-14.5) Platelet Count 284 x10^3/uL (140-400) Neutrophils (%) (Auto) 90 % (31-73) Lymphocytes (%) (Auto) 6 % (24-48) Monocytes (%) (Auto) 3 % (0-9) Eosinophils (%) (Auto) 0 % (0-3) Basophils (%) (Auto) 0 % (0-3) Neutrophils # (Auto) 7.0 x10^3/uL (1.8-7.7) Lymphocytes # (Auto) 0.5 x10^3/uL (1.0-4.8) Monocytes # (Auto) 0.2 x10^3/uL (0.0-1.1) Eosinophils # (Auto) 0.0 x10^3/uL (0.0-0.7) Basophils # (Auto) 0.0 x10^3/uL (0.0-0.2) Sodium Level 140 mmol/L (136-145) Potassium Level 4.9 mmol/L (3.5-5.1) Chloride Level 101 mmol/L (98-107) Carbon Dioxide Level 26 mmol/L (21-32) Anion Gap 13 (6-14) Blood Urea Nitrogen 44 mg/dL (7-20) Creatinine 1.9 mg/dL (0.6-1.0) Estimated GFR (Cockcroft-Gault) 31.0 Glucose Level 160 mg/dL (70-99) Calcium Level 9.4 mg/dL (8.5-10.1) Phosphorus Level 4.7 mg/dL (2.6-4.7) Magnesium Level 1.9 mg/dL (1.8-2.4) Test 06/20/21 08:23 06/20/21 11:18 Glucose (Fingerstick) 183 mg/dL (70-99) 158 mg/dL (70-99) Laboratory Tests Test 06/19/21 12:13 06/19/21 17:23 06/19/21 20:44 06/19/21 21:05 Glucose (Fingerstick) 153 mg/dL (70-99) 149 mg/dL (70-99) 129 mg/dL (70-99) O2 Saturation 77 % (92-99) Arterial Blood pH 7.47 (7.35-7.45) Arterial Blood pCO2 at Patient Temp 38 mmHg (35-46) Arterial Blood pO2 at Patient Temp 42 mmHg (65-108) Arterial Blood HCO3 27 mmol/L (21-28) Arterial Blood Base Excess 3 mmol/L (-3-3) FiO2 3lnc Test 06/20/21 05:15 06/20/21 08:23 06/20/21 11:18 White Blood Count 7.8 x10^3/uL (4.0-11.0) Red Blood Count 3.43 x10^6/uL (3.50-5.40) Hemoglobin 9.6 g/dL (12.0-15.5) Hematocrit 29.7 % (36.0-47.0) Mean Corpuscular Volume 87 fL (79-100) Mean Corpuscular Hemoglobin 28 pg (25-35) Mean Corpuscular Hemoglobin Concent 32 g/dL (31-37) Red Cell Distribution Width 18.5 % (11.5-14.5) Platelet Count 284 x10^3/uL (140-400) Neutrophils (%) (Auto) 90 % (31-73) Lymphocytes (%) (Auto) 6 % (24-48) Monocytes (%) (Auto) 3 % (0-9) Eosinophils (%) (Auto) 0 % (0-3) Basophils (%) (Auto) 0 % (0-3) Neutrophils # (Auto) 7.0 x10^3/uL (1.8-7.7) Lymphocytes # (Auto) 0.5 x10^3/uL (1.0-4.8) Monocytes # (Auto) 0.2 x10^3/uL (0.0-1.1) Eosinophils # (Auto) 0.0 x10^3/uL (0.0-0.7) Basophils # (Auto) 0.0 x10^3/uL (0.0-0.2) Sodium Level 140 mmol/L (136-145) Potassium Level 4.9 mmol/L (3.5-5.1) Chloride Level 101 mmol/L (98-107) Carbon Dioxide Level 26 mmol/L (21-32) Anion Gap 13 (6-14) Blood Urea Nitrogen 44 mg/dL (7-20) Creatinine 1.9 mg/dL (0.6-1.0) Estimated GFR (Cockcroft-Gault) 31.0 Glucose Level 160 mg/dL (70-99) Calcium Level 9.4 mg/dL (8.5-10.1) Phosphorus Level 4.7 mg/dL (2.6-4.7) Magnesium Level 1.9 mg/dL (1.8-2.4) Glucose (Fingerstick) 183 mg/dL (70-99) 158 mg/dL (70-99) Medications Active Scripts Medications Dose Route/Sig Max Daily Dose Days Date Category Dose Instructions Breztri Aerosphere Inhaler (Budesonide/Glycopyr/Formoterol) 10.7 Gm Hfa.aer.ad 2 Puff PO BID 06/19/21 Reported Benzonatate 200 Mg Capsule 1 Cap PO TID PRN 06/19/21 Reported Eliquis (Apixaban) 5 Mg Tablet 1 Tab PO BID 06/19/21 Reported Miralax (Polyethylene Glycol 3350) 17 Gm Powd.pack 1 Packet PO DAILY 30 05/05/21 Rx dissolve in water Basaglar Kwikpen U-100 (Insulin Glargine,Hum.rec.anlog) 100 Unit/1 Ml Insuln.pen 10 Unit SQ QHS 30 05/04/21 Rx Codeine-Guaifen 10-100 mg/5 ml (Guaifenesin/Codeine Phosphate) 120 Ml Liquid 5 Ml PO TID PRN MDD 20 Milliliter(s) 4 04/18/21 Rx Klor-Con 10 (Potassium Chloride) 10 Meq Tablet.er 2 Meq PO DAILY 04/14/21 Reported Omeprazole 40 Mg Capsule.dr 1 Cap PO BID 04/14/21 Reported Olmesartan Medoxomil 40 Mg Tablet 1 Tab PO DAILY 04/14/21 Reported Carvedilol 12.5 Mg Tablet 1 Tab PO BID 04/14/21 Reported Duoneb 0.5-3(2.5) Mg/3 Ml (Albuterol/Ipratropium) 3 Ml Ampul.neb 1 Vial NEB QID PRN 04/14/21 Reported Vitamin D3 (Cholecalciferol (Vitamin D3)) 1,250 Mcg Capsule 1,250 Mcg PO DAILY 01/18/21 Reported Bumetanide 1 Mg Tablet 1 Mg PO DAILY 04/15/20 Reported Aspir 81 (Aspirin) 81 Mg Tablet.dr 1 Tab PO DAILY 05/04/15 Reported Atorvastatin Calcium 20 Mg Tablet 1 Tab PO HS 05/04/15 Reported Impression . 1. Acute on chronic hypoxic respiratory failure secondary to combination of underlying severe cardiomyopathy and acute exacerbation of chronic obstructive pulmonary disease. Patient had another episode of hypoxia last night requiring BiPAP. Cannot exclude thromboembolic disease. Chest x-ray without any obvious CHF. Will obtain VQ scan. 2. Underlying cardiomyopathy with an ejection fraction of 20%. Status post automatic implantable cardioverter-defibrillator and mitral valve repair. 3. Underlying chronic obstructive pulmonary disease, which could be severe. 4. No definite consolidation seen on the chest x-ray. Plan . RECOMMENDATIONS: 1. Continue present oxygen, keep saturation 92% and above. Use as needed BiPAP. 2. Maximize bronchodilator treatment by adding DuoNebs and Pulmicort. Also started on Solu-Medrol last night. 3. We will obtain VQ scan and venous Dopplers of lower extremities. 4. Continue p.r.n. diuretics. 5. Follow Cardiology recommendations. 6. Discussed with RN. Discussed with patient's at the bedside. Video swallow has been requested by PCP and will follow the results. CRIS PARK MD Jun 20, 2021 11:22
--- NOTE | 2021-06-20 12:46 | PDOC ---
[employer] PROGRESS NOTE Date of Service DOS: DATE: 06/20/21 TIME: 12:43 Chief Complaint Chief Complaint Acute hypoxic respiratory failure secondary to likely bacterial pneumonia versus CHF exacerbation versus COPD exacerbation KAMALJIT due to vasomotor nephropathy History of CABG Chronic systolic CHF, LVEF of 20 to 25% on echo 04/14/2021 History of ischemic cardiomyopathy, status post AICD placement. History of diabetes mellitus type 2 History of hypertension History of valvular surgery x2 History of AICD placement Admit to hospitalist service for further management Pulmonology consult Cardiology consult Continue as needed IV diuresis Daily IV steroids ordered Continue duo nebs and Pulmicort Home Eliquis for DVT prophylaxis Protonix GI prophylaxis ADA diet CODE STATUS full Discussed with RN and SW Disposition inpatient management as above DPOA: History of Present Illness History of Present Illness 76 year old female with history of CHF, on oxygen at home, presented to ER for evaluation due to 2-days history of shortness of air with exertion. Patient said when she was he tried to walk to the bathroom or do anything strenuous she having trouble breathing. Patient denies any cough or fever, denies any chest pain. Patient called her chick room supervisor who instructed her to come to ER for evaluation. Patient was recently admitted here due to CHF exacerbation. 06/20 Patient evaluated examined at bedside this morning. She was on nasal cannula. Apparently required BiPAP overnight but removed without complication this morning. Echo being performed this morning along with lower extremity duplexes. VQ scan ordered per pulmonary. Reviewed pulmonology recommendations. Continue antibiotics for presumed bacterial pneumonia. Continue steroids and breathing treatments.. Cardiology consulted for fluid management. Reviewed their recommendations. Discussed with bedside RN. Continue as needed diuresis. Vitals/I&O Vitals/I&O: Vital Signs Date Time Temp Pulse Resp B/P (MAP) Pulse Ox O2 Delivery O2 Flow Rate FiO2 06/20/21 11:22 97 Nasal Cannula 2.0 06/20/21 11:00 97.7 85 18 133/61 (85) 97.7 I & O 06/19/21 06/19/21 06/20/21 15:00 23:00 07:00 Intake Total 0 ml Balance 0 ml Physical Exam General: Alert, Oriented X3, Cooperative Heart: Regular rate, Normal S1, Normal S2 Lungs: Clear, Other (Decreased breath sounds bilaterally) Abdomen: Normal bowel sounds, Soft, No tenderness Extremities: Normal pulses, Other (lower extremity swelling) Skin: No significant lesion Labs Labs: Laboratory Tests Test 06/19/21 17:23 06/19/21 20:44 06/19/21 21:05 06/20/21 05:15 Glucose (Fingerstick) 149 mg/dL (70-99) 129 mg/dL (70-99) O2 Saturation 77 % (92-99) Arterial Blood pH 7.47 (7.35-7.45) Arterial Blood pCO2 at Patient Temp 38 mmHg (35-46) Arterial Blood pO2 at Patient Temp 42 mmHg (65-108) Arterial Blood HCO3 27 mmol/L (21-28) Arterial Blood Base Excess 3 mmol/L (-3-3) FiO2 3lnc White Blood Count 7.8 x10^3/uL (4.0-11.0) Red Blood Count 3.43 x10^6/uL (3.50-5.40) Hemoglobin 9.6 g/dL (12.0-15.5) Hematocrit 29.7 % (36.0-47.0) Mean Corpuscular Volume 87 fL (79-100) Mean Corpuscular Hemoglobin 28 pg (25-35) Mean Corpuscular Hemoglobin Concent 32 g/dL (31-37) Red Cell Distribution Width 18.5 % (11.5-14.5) Platelet Count 284 x10^3/uL (140-400) Neutrophils (%) (Auto) 90 % (31-73) Lymphocytes (%) (Auto) 6 % (24-48) Monocytes (%) (Auto) 3 % (0-9) Eosinophils (%) (Auto) 0 % (0-3) Basophils (%) (Auto) 0 % (0-3) Neutrophils # (Auto) 7.0 x10^3/uL (1.8-7.7) Lymphocytes # (Auto) 0.5 x10^3/uL (1.0-4.8) Monocytes # (Auto) 0.2 x10^3/uL (0.0-1.1) Eosinophils # (Auto) 0.0 x10^3/uL (0.0-0.7) Basophils # (Auto) 0.0 x10^3/uL (0.0-0.2) Sodium Level 140 mmol/L (136-145) Potassium Level 4.9 mmol/L (3.5-5.1) Chloride Level 101 mmol/L (98-107) Carbon Dioxide Level 26 mmol/L (21-32) Anion Gap 13 (6-14) Blood Urea Nitrogen 44 mg/dL (7-20) Creatinine 1.9 mg/dL (0.6-1.0) Estimated GFR (Cockcroft-Gault) 31.0 Glucose Level 160 mg/dL (70-99) Calcium Level 9.4 mg/dL (8.5-10.1) Phosphorus Level 4.7 mg/dL (2.6-4.7) Magnesium Level 1.9 mg/dL (1.8-2.4) Test 06/20/21 08:23 06/20/21 11:18 Glucose (Fingerstick) 183 mg/dL (70-99) 158 mg/dL (70-99) Comment Review of Relevant I have reviewed the following items deirdre (where applicable) has been applied. Medications: Current Medications Medications (Trade) Dose Ordered Sig/Jeremy Route PRN Reason Start Time Stop Time Status Last Admin Dose Admin Insulin Glargine (Lantus Syringe) 10 unit QHS SQ 06/19/21 21:00 06/19/21 23:47 Furosemide (Lasix) 20 mg 1X ONCE IVP 06/19/21 21:15 06/19/21 21:22 DC 06/19/21 21:36 Methylprednisolone Sodium Succinate (SOLU-Medrol 40MG VIAL) 60 mg 1X ONCE IV 06/19/21 21:15 06/19/21 21:21 DC 06/19/21 21:15 Methylprednisolone Sodium Succinate (SOLU-Medrol 40MG VIAL) 60 mg Q6HRS IV 06/20/21 06:00 06/20/21 06:40 Furosemide (Lasix) 40 mg 1X ONCE IVP 06/19/21 21:30 06/19/21 21:38 DC 06/19/21 21:30 Justifications for Admission Other Justification Acute respiratory failure SIMÓN ORO MD Jun 20, 2021 12:46
[2021-06-20 15:00] VITALS: BP 115/53
--- NOTE | 2021-06-20 15:00 | RAD ---
EXAMINATION: US BILATERAL LOWEREXTREMITY VENOUS DOPPLER, 06/20/2021 11:28 AM CLINICAL INDICATION: Left leg pain and swelling, bilateral lower extremity edema. COMPARISON: None Available. PROCEDURE: Multiple grayscale, color Doppler and spectral Doppler sonographic images of the bilateral lower extremities were obtained. FINDINGS: There is no evidence of deep venous thrombosis in either lower extremity. The bilateral com mon femoral, femoral and popliteal veins are echolucent with normal flow on color Doppler imaging. Th e veins are fully compressible and show normal phasicity and reaction to augmentation. Visualized floresita f veins are also normal in appearance. IMPRESSION: No evidence of deep venous thrombosis in either lower extremity. Electronically signed by: Carina Mcknight MD (06/20/2021 2:58 PM) [id number]
--- NOTE | 2021-06-20 15:41 | RAD ---
EXAM: XR CHEST 1V 06/20/2021 1:41 PM CLINICAL INDICATION: Shortness of breath COMPARISON: Chest radiograph 06/19/2021 TECHNIQUE: AP upright view of the chest FINDINGS: There is a pacemaker/AICD and median sternotomy wires. Cardiomegaly is unchanged. The lung s are well-expanded. There are unchanged small bilateral pleural effusions. No consolidation or pneum othorax. IMPRESSION: Unchanged cardiomegaly and small pleural effusions. Electronically signed by: Carina Mcknight MD (06/20/2021 3:39 PM) [id number]
--- NOTE | 2021-06-20 16:16 | NUR ---
SS following for discharge planning. SS reviewed pt chart and discussed with pt RN. Pt is currently requiring oxygen at two to three liters nasal canula. COVID19 negative. Pt on IV Solu-Medrol. PT/OT recommended home with home healthcare. Pt has home oxygen. Pt is current on services with [facility], ; fax [phone]. SS will continue to follow for discharge planning.
--- NOTE | 2021-06-20 18:14 | NUR ---
NURSING PT CHANGED OVER FROM BIPAP TO 3L/NC EARLY IN THE DAY BY RT. SHE HAS HAD MILD ROSA, BUT NO SIGNIFICANT SOA OR RESPIRATORY DISTRESS. SHE HAS BEEN UP TO THE CHAIR FOR EXTENDED PERIODS TWICE DURING THE DAY, AND TOLERATED WELL. TRANSFERS ARE SBA.
[2021-06-20 19:12] VITALS: BP 103/57
[2021-06-20] MEDS: ATORVASTATIN CALCIUM 20 MG TABLET PO SCH (21:35)
[2021-06-20] MEDS: INSULIN GLARGINE SYRINGE. SQ SCH (21:36)
[2021-06-20 22:45] VITALS: BP 94/56
[2021-06-21] MEDS: methylPREDNISolone SOD SUCC PF 40 MG/ML VIAL. IV SCH ×5 (00:16→23:26)
[2021-06-21 03:23] VITALS: BP 107/63
[2021-06-21] MEDS: PANTOPRAZOLE 40 MG TABLET.DR. PO SCH ×2 (05:57→16:51)
[2021-06-21 07:00] VITALS: BP 112/62
[2021-06-21] MEDS: IPRATRPIUM/ALBUTEROL 0.5/2.5MG 3 ML NEBU. NEB SCH ×5 (07:22→20:30)
[2021-06-21] MEDS: BUDESONIDE 0.5 MG/2 ML NEBU. NEB SCH ×2 (07:22→20:30)
[2021-06-21 08:01] LABS: BASO % 0 % (0-3); EOS % 0 % (0-3); HEMATOCRIT 28.7 % (36.0-47.0); HEMOGLOBIN 9.3 g/dL (12.0-15.5); LYMPH # 0.5 x10^3/uL (1.0-4.8); LYMPH % 4 % (24-48); MEAN CORPUSCULAR HEMOGLOBIN 28 pg (25-35); MEAN CORPUSCULAR HGB CONC 33 g/dL (31-37); MEAN CORPUSCULAR VOLUME 86 fL (79-100); MONO # 0.7 x10^3/uL (0.0-1.1); MONO % 6 % (0-9); NEUT # 11.4 x10^3/uL (1.8-7.7); NEUT % 90 % (31-73); PLATELET COUNT 288 x10^3/uL (140-400); RED BLOOD COUNT 3.35 x10^6/uL (3.50-5.40); RED CELL DISTRIBUTION WIDTH 19.3 % (11.5-14.5); WHITE BLOOD COUNT 12.6 x10^3/uL (4.0-11.0)
[2021-06-21 08:15] LABS: CALCIUM 8.9 mg/dL (8.5-10.1); CREATININE 2.4 mg/dL (0.6-1.0); GFR 23.7; MAGNESIUM 2.1 mg/dL (1.8-2.4); POTASSIUM 4.7 mmol/L (3.5-5.1)
[2021-06-21] MEDS: CARVEDILOL 12.5 MG TABLET. PO SCH ×2 (08:16→16:51)
[2021-06-21] MEDS: ASPIRIN ENTERIC COATED 81 MG TABLET.DR. PO SCH (08:16)
[2021-06-21] MEDS: INSULIN LISPRO 300 UNITS/3 ML VIAL. SQ SCH ×3 (08:17→16:53)
--- NOTE | 2021-06-21 08:24 | PDOC ---
PULMONARY PROGRESS NOTES DATE: 06/21/21 TIME: 08:24 Subjective Patient feels better, she is back to baseline, not more short of air Vitals Vital Signs Date Time Temp Pulse Resp B/P (MAP) Pulse Ox O2 Delivery O2 Flow Rate FiO2 06/21/21 08:16 82 112/62 06/21/21 07:44 Nasal Cannula 3.0 06/21/21 07:23 96 06/21/21 03:23 97.5 16 97.5 General: Alert, No acute distress Lungs: Clear, Other (Decreased breath sounds bilaterally) Cardiovascular: S1, S2 Abdomen: Soft Neuro Exam: Alert Extremities: No Edema Labs Laboratory Tests Test 06/19/21 12:13 06/19/21 17:23 06/19/21 20:44 06/19/21 21:05 Glucose (Fingerstick) 153 mg/dL (70-99) 149 mg/dL (70-99) 129 mg/dL (70-99) O2 Saturation 77 % (92-99) Arterial Blood pH 7.47 (7.35-7.45) Arterial Blood pCO2 at Patient Temp 38 mmHg (35-46) Arterial Blood pO2 at Patient Temp 42 mmHg (65-108) Arterial Blood HCO3 27 mmol/L (21-28) Arterial Blood Base Excess 3 mmol/L (-3-3) FiO2 3lnc Test 06/20/21 05:15 06/20/21 08:23 06/20/21 11:18 06/20/21 13:55 White Blood Count 7.8 x10^3/uL (4.0-11.0) Red Blood Count 3.43 x10^6/uL (3.50-5.40) Hemoglobin 9.6 g/dL (12.0-15.5) Hematocrit 29.7 % (36.0-47.0) Mean Corpuscular Volume 87 fL (79-100) Mean Corpuscular Hemoglobin 28 pg (25-35) Mean Corpuscular Hemoglobin Concent 32 g/dL (31-37) Red Cell Distribution Width 18.5 % (11.5-14.5) Platelet Count 284 x10^3/uL (140-400) Neutrophils (%) (Auto) 90 % (31-73) Lymphocytes (%) (Auto) 6 % (24-48) Monocytes (%) (Auto) 3 % (0-9) Eosinophils (%) (Auto) 0 % (0-3) Basophils (%) (Auto) 0 % (0-3) Neutrophils # (Auto) 7.0 x10^3/uL (1.8-7.7) Lymphocytes # (Auto) 0.5 x10^3/uL (1.0-4.8) Monocytes # (Auto) 0.2 x10^3/uL (0.0-1.1) Eosinophils # (Auto) 0.0 x10^3/uL (0.0-0.7) Basophils # (Auto) 0.0 x10^3/uL (0.0-0.2) Sodium Level 140 mmol/L (136-145) Potassium Level 4.9 mmol/L (3.5-5.1) Chloride Level 101 mmol/L (98-107) Carbon Dioxide Level 26 mmol/L (21-32) Anion Gap 13 (6-14) Blood Urea Nitrogen 44 mg/dL (7-20) Creatinine 1.9 mg/dL (0.6-1.0) Estimated GFR (Cockcroft-Gault) 31.0 Glucose Level 160 mg/dL (70-99) Calcium Level 9.4 mg/dL (8.5-10.1) Phosphorus Level 4.7 mg/dL (2.6-4.7) Magnesium Level 1.9 mg/dL (1.8-2.4) Glucose (Fingerstick) 183 mg/dL (70-99) 158 mg/dL (70-99) SARS-CoV-2 Antigen (Rapid) Negative (NEGATIVE) Test 06/20/21 17:23 06/20/21 20:16 06/21/21 07:25 06/21/21 07:46 Glucose (Fingerstick) 404 mg/dL (70-99) 270 mg/dL (70-99) 280 mg/dL (70-99) White Blood Count 12.6 x10^3/uL (4.0-11.0) Red Blood Count 3.35 x10^6/uL (3.50-5.40) Hemoglobin 9.3 g/dL (12.0-15.5) Hematocrit 28.7 % (36.0-47.0) Mean Corpuscular Volume 86 fL (79-100) Mean Corpuscular Hemoglobin 28 pg (25-35) Mean Corpuscular Hemoglobin Concent 33 g/dL (31-37) Red Cell Distribution Width 19.3 % (11.5-14.5) Platelet Count 288 x10^3/uL (140-400) Neutrophils (%) (Auto) 90 % (31-73) Lymphocytes (%) (Auto) 4 % (24-48) Monocytes (%) (Auto) 6 % (0-9) Eosinophils (%) (Auto) 0 % (0-3) Basophils (%) (Auto) 0 % (0-3) Neutrophils # (Auto) 11.4 x10^3/uL (1.8-7.7) Lymphocytes # (Auto) 0.5 x10^3/uL (1.0-4.8) Monocytes # (Auto) 0.7 x10^3/uL (0.0-1.1) Eosinophils # (Auto) 0.0 x10^3/uL (0.0-0.7) Basophils # (Auto) 0.0 x10^3/uL (0.0-0.2) Sodium Level 138 mmol/L (136-145) Potassium Level 4.7 mmol/L (3.5-5.1) Chloride Level 101 mmol/L (98-107) Carbon Dioxide Level 29 mmol/L (21-32) Anion Gap 8 (6-14) Blood Urea Nitrogen 58 mg/dL (7-20) Creatinine 2.4 mg/dL (0.6-1.0) Estimated GFR (Cockcroft-Gault) 23.7 Glucose Level 286 mg/dL (70-99) Calcium Level 8.9 mg/dL (8.5-10.1) Magnesium Level 2.1 mg/dL (1.8-2.4) Laboratory Tests Test 06/20/21 11:18 06/20/21 13:55 06/20/21 17:23 06/20/21 20:16 Glucose (Fingerstick) 158 mg/dL (70-99) 404 mg/dL (70-99) 270 mg/dL (70-99) SARS-CoV-2 Antigen (Rapid) Negative (NEGATIVE) Test 06/21/21 07:25 06/21/21 07:46 White Blood Count 12.6 x10^3/uL (4.0-11.0) Red Blood Count 3.35 x10^6/uL (3.50-5.40) Hemoglobin 9.3 g/dL (12.0-15.5) Hematocrit 28.7 % (36.0-47.0) Mean Corpuscular Volume 86 fL (79-100) Mean Corpuscular Hemoglobin 28 pg (25-35) Mean Corpuscular Hemoglobin Concent 33 g/dL (31-37) Red Cell Distribution Width 19.3 % (11.5-14.5) Platelet Count 288 x10^3/uL (140-400) Neutrophils (%) (Auto) 90 % (31-73) Lymphocytes (%) (Auto) 4 % (24-48) Monocytes (%) (Auto) 6 % (0-9) Eosinophils (%) (Auto) 0 % (0-3) Basophils (%) (Auto) 0 % (0-3) Neutrophils # (Auto) 11.4 x10^3/uL (1.8-7.7) Lymphocytes # (Auto) 0.5 x10^3/uL (1.0-4.8) Monocytes # (Auto) 0.7 x10^3/uL (0.0-1.1) Eosinophils # (Auto) 0.0 x10^3/uL (0.0-0.7) Basophils # (Auto) 0.0 x10^3/uL (0.0-0.2) Sodium Level 138 mmol/L (136-145) Potassium Level 4.7 mmol/L (3.5-5.1) Chloride Level 101 mmol/L (98-107) Carbon Dioxide Level 29 mmol/L (21-32) Anion Gap 8 (6-14) Blood Urea Nitrogen 58 mg/dL (7-20) Creatinine 2.4 mg/dL (0.6-1.0) Estimated GFR (Cockcroft-Gault) 23.7 Glucose Level 286 mg/dL (70-99) Calcium Level 8.9 mg/dL (8.5-10.1) Magnesium Level 2.1 mg/dL (1.8-2.4) Glucose (Fingerstick) 280 mg/dL (70-99) Medications Active Scripts Medications Dose Route/Sig Max Daily Dose Days Date Category Dose Instructions Breztri Aerosphere Inhaler (Budesonide/Glycopyr/Formoterol) 10.7 Gm Hfa.aer.ad 2 Puff PO BID 06/19/21 Reported Benzonatate 200 Mg Capsule 1 Cap PO TID PRN 06/19/21 Reported Eliquis (Apixaban) 5 Mg Tablet 1 Tab PO BID 06/19/21 Reported Miralax (Polyethylene Glycol 3350) 17 Gm Powd.pack 1 Packet PO DAILY 30 05/05/21 Rx dissolve in water Basaglar Kwikpen U-100 (Insulin Glargine,Hum.rec.anlog) 100 Unit/1 Ml Insuln.pen 10 Unit SQ QHS 30 05/04/21 Rx Codeine-Guaifen 10-100 mg/5 ml (Guaifenesin/Codeine Phosphate) 120 Ml Liquid 5 Ml PO TID PRN MDD 20 Milliliter(s) 4 04/18/21 Rx Klor-Con 10 (Potassium Chloride) 10 Meq Tablet.er 2 Meq PO DAILY 04/14/21 Reported Omeprazole 40 Mg Capsule.dr 1 Cap PO BID 04/14/21 Reported Olmesartan Medoxomil 40 Mg Tablet 1 Tab PO DAILY 04/14/21 Reported Carvedilol 12.5 Mg Tablet 1 Tab PO BID 04/14/21 Reported Duoneb 0.5-3(2.5) Mg/3 Ml (Albuterol/Ipratropium) 3 Ml Ampul.neb 1 Vial NEB QID PRN 04/14/21 Reported Vitamin D3 (Cholecalciferol (Vitamin D3)) 1,250 Mcg Capsule 1,250 Mcg PO DAILY 01/18/21 Reported Bumetanide 1 Mg Tablet 1 Mg PO DAILY 04/15/20 Reported Aspir 81 (Aspirin) 81 Mg Tablet.dr 1 Tab PO DAILY 05/04/15 Reported Atorvastatin Calcium 20 Mg Tablet 1 Tab PO HS 05/04/15 Reported Impression . 1. Acute on chronic hypoxic respiratory failure secondary to combination of underlying severe cardiomyopathy and acute exacerbation of chronic obstructive pulmonary disease. 2. Underlying cardiomyopathy with an ejection fraction of 20%. Status post automatic implantable cardioverter-defibrillator and mitral valve repair. 3. Underlying chronic obstructive pulmonary disease, which could be severe. 4. No definite consolidation seen on the chest x-ray. Plan . Updated 06/21 Patient feels better venous Dopplers were negative VQ scan has not been ordered, suspect VQ may be in determining, unable to obtain CT secondary to renal insufficiency Patient agrees to being discharged in the a.m. RECOMMENDATIONS: 1. Continue present oxygen, keep saturation 92% and above. Use as needed BiPAP. 2. Maximize bronchodilator treatment by adding DuoNebs and Pulmicort. Also started on Solu-Medrol last night. 3. We will obtain VQ scan and venous Dopplers of lower extremities. 4. Continue p.r.n. diuretics. 5. Follow Cardiology recommendations. 6. Discussed with RN. Discussed with patient's at the bedside. Video swallow has been requested by PCP and will follow the results. NARCISO PRATER MD Jun 21, 2021 08:24
[2021-06-21 11:00] VITALS: BP 110/55
--- NOTE | 2021-06-21 11:12 | PDOC ---
[employer] PROGRESS NOTE Date of Service DOS: DATE: 06/21/21 TIME: 11:10 Chief Complaint Chief Complaint Acute hypoxic respiratory failure secondary to likely bacterial pneumonia versus CHF exacerbation versus COPD exacerbation KAMALJIT due to vasomotor nephropathy History of CABG Chronic systolic CHF, LVEF of 20 to 25% on echo 04/14/2021 History of ischemic cardiomyopathy, status post AICD placement. History of diabetes mellitus type 2 History of hypertension History of valvular surgery x2 History of AICD placement Admit to hospitalist service for further management Pulmonology consult Cardiology consult Continue as needed IV diuresis Daily IV steroids ordered Continue duo nebs and Pulmicort Home Eliquis for DVT prophylaxis Protonix GI prophylaxis ADA diet CODE STATUS full Discussed with RN and SW Disposition inpatient management as above DPOA: History of Present Illness History of Present Illness 76 year old female with history of CHF, on oxygen at home, presented to ER for evaluation due to 2-days history of shortness of air with exertion. Patient said when she was he tried to walk to the bathroom or do anything strenuous she having trouble breathing. Patient denies any cough or fever, denies any chest pain. Patient called her travel insurance agent who instructed her to come to ER for evaluation. Patient was recently admitted here due to CHF exacerbation. 06/20 Patient evaluated examined at bedside this morning. She was on nasal cannula. Apparently required BiPAP overnight but removed without complication this morning. Echo being performed this morning along with lower extremity duplexes. VQ scan ordered per pulmonary. Reviewed pulmonology recommendations. Continue antibiotics for presumed bacterial pneumonia. Continue steroids and breathing treatments.. Cardiology consulted for fluid management. Reviewed their recommendations. Discussed with bedside RN. Continue as needed diuresis. 06/21 Patient evaluated examined at bedside. On nasal cannula resting in bed. Did well overnight. V/Q scan to be performed still. Cardiology and pulmonology following. Recommendations reviewed. Transition all orals on discharge. Discussed with bedside RN. Possible discharge this afternoon if VQ scan completed and okay with consultants. Vitals/I&O Vitals/I&O: Vital Signs Date Time Temp Pulse Resp B/P (MAP) Pulse Ox O2 Delivery O2 Flow Rate FiO2 06/21/21 08:16 82 112/62 06/21/21 07:44 Nasal Cannula 3.0 06/21/21 07:23 96 06/21/21 07:00 97.4 18 97.4 I & O 06/20/21 06/20/21 06/21/21 15:00 23:00 07:00 Intake Total 360 ml 300 ml 100 ml Output Total 100 ml Balance 360 ml 200 ml 100 ml Physical Exam General: Alert, Oriented X3, Cooperative Heart: Regular rate, Normal S1, Normal S2 Lungs: Clear, Other (Decreased breath sounds bilaterally) Abdomen: Normal bowel sounds, Soft, No tenderness Extremities: Normal pulses, Other (lower extremity swelling) Skin: No significant lesion Labs Labs: Laboratory Tests Test 06/20/21 11:18 06/20/21 13:55 06/20/21 17:23 06/20/21 20:16 Glucose (Fingerstick) 158 mg/dL (70-99) 404 mg/dL (70-99) 270 mg/dL (70-99) SARS-CoV-2 Antigen (Rapid) Negative (NEGATIVE) Test 06/21/21 07:25 06/21/21 07:46 White Blood Count 12.6 x10^3/uL (4.0-11.0) Red Blood Count 3.35 x10^6/uL (3.50-5.40) Hemoglobin 9.3 g/dL (12.0-15.5) Hematocrit 28.7 % (36.0-47.0) Mean Corpuscular Volume 86 fL (79-100) Mean Corpuscular Hemoglobin 28 pg (25-35) Mean Corpuscular Hemoglobin Concent 33 g/dL (31-37) Red Cell Distribution Width 19.3 % (11.5-14.5) Platelet Count 288 x10^3/uL (140-400) Neutrophils (%) (Auto) 90 % (31-73) Lymphocytes (%) (Auto) 4 % (24-48) Monocytes (%) (Auto) 6 % (0-9) Eosinophils (%) (Auto) 0 % (0-3) Basophils (%) (Auto) 0 % (0-3) Neutrophils # (Auto) 11.4 x10^3/uL (1.8-7.7) Lymphocytes # (Auto) 0.5 x10^3/uL (1.0-4.8) Monocytes # (Auto) 0.7 x10^3/uL (0.0-1.1) Eosinophils # (Auto) 0.0 x10^3/uL (0.0-0.7) Basophils # (Auto) 0.0 x10^3/uL (0.0-0.2) Sodium Level 138 mmol/L (136-145) Potassium Level 4.7 mmol/L (3.5-5.1) Chloride Level 101 mmol/L (98-107) Carbon Dioxide Level 29 mmol/L (21-32) Anion Gap 8 (6-14) Blood Urea Nitrogen 58 mg/dL (7-20) Creatinine 2.4 mg/dL (0.6-1.0) Estimated GFR (Cockcroft-Gault) 23.7 Glucose Level 286 mg/dL (70-99) Calcium Level 8.9 mg/dL (8.5-10.1) Magnesium Level 2.1 mg/dL (1.8-2.4) Glucose (Fingerstick) 280 mg/dL (70-99) Comment Review of Relevant I have reviewed the following items deirdre (where applicable) has been applied. Justifications for Admission Other Justification Acute respiratory failure SIMÓN ORO MD Jun 21, 2021 11:12
--- NOTE | 2021-06-21 11:18 | NUR ---
SS following up with discharge planning. SS reviewed pt chart and discussed with pt RN. Pt is currently requiring oxygen at two to three liters nasal canula. COVID19 negative. Pt on IV Solu-Medrol. PO diet. PT/OT recommended home with home healthcare. Pt is current on services with [facility], ; fax [phone]. SS will continue to follow for discharge planning.
--- NOTE | 2021-06-21 11:53 | PDOC ---
RAÚL GARCIA CARRIER DRIVER 06/21/21 1153: CARDIO Progress Notes Date and Time Date of Service 06/21/21 Time of Evaluation 1150 Subjective Subjective: No Chest Pain, No Palpitations, No Dizziness, Other (breathign improved ) Vitals Vitals Vital Signs Date Time Temp Pulse Resp B/P (MAP) Pulse Ox O2 Delivery O2 Flow Rate FiO2 06/21/21 11:00 97.5 85 16 110/55 (73) 95 Nasal Cannula 2.0 97.5 Weight Weight [ ] Input and Output Intake and Output Intake and Output 06/21/21 07:00 Intake Total 760 ml Output Total 100 ml Balance 660 ml Intake Oral 760 ml Output Urine Total 100 ml # Voids 3 # Bowel Movements 1 Laboratory Labs Laboratory Tests Test 06/20/21 13:55 06/20/21 17:23 06/20/21 20:16 06/21/21 07:25 SARS-CoV-2 Antigen (Rapid) Negative (NEGATIVE) Glucose (Fingerstick) 404 mg/dL (70-99) 270 mg/dL (70-99) White Blood Count 12.6 x10^3/uL (4.0-11.0) Red Blood Count 3.35 x10^6/uL (3.50-5.40) Hemoglobin 9.3 g/dL (12.0-15.5) Hematocrit 28.7 % (36.0-47.0) Mean Corpuscular Volume 86 fL (79-100) Mean Corpuscular Hemoglobin 28 pg (25-35) Mean Corpuscular Hemoglobin Concent 33 g/dL (31-37) Red Cell Distribution Width 19.3 % (11.5-14.5) Platelet Count 288 x10^3/uL (140-400) Neutrophils (%) (Auto) 90 % (31-73) Lymphocytes (%) (Auto) 4 % (24-48) Monocytes (%) (Auto) 6 % (0-9) Eosinophils (%) (Auto) 0 % (0-3) Basophils (%) (Auto) 0 % (0-3) Neutrophils # (Auto) 11.4 x10^3/uL (1.8-7.7) Lymphocytes # (Auto) 0.5 x10^3/uL (1.0-4.8) Monocytes # (Auto) 0.7 x10^3/uL (0.0-1.1) Eosinophils # (Auto) 0.0 x10^3/uL (0.0-0.7) Basophils # (Auto) 0.0 x10^3/uL (0.0-0.2) Sodium Level 138 mmol/L (136-145) Potassium Level 4.7 mmol/L (3.5-5.1) Chloride Level 101 mmol/L (98-107) Carbon Dioxide Level 29 mmol/L (21-32) Anion Gap 8 (6-14) Blood Urea Nitrogen 58 mg/dL (7-20) Creatinine 2.4 mg/dL (0.6-1.0) Estimated GFR (Cockcroft-Gault) 23.7 Glucose Level 286 mg/dL (70-99) Calcium Level 8.9 mg/dL (8.5-10.1) Magnesium Level 2.1 mg/dL (1.8-2.4) Test 06/21/21 07:46 06/21/21 11:39 Glucose (Fingerstick) 280 mg/dL (70-99) 290 mg/dL (70-99) Physical Exam HEENT: Neck Supple W Full Motion Chest: Symmetric LUNGS: Other (diminished bases) Heart: RRR Abdomen: Soft N/T Extremities: Other (trace pedal edema ) Neurology: alert, oriented, follow commands Assessment Assessment 1. Acute on chronic respiratory failure likely secondary to COPD exacerbation. VQ planned to r/o PE given history 2. Mild acute on chronic systolic heart failure; CXR without congestion. s/p IV Lasix. appears compensated 3. Chronic ischemic cardiomyopathy; EF at 25%. s/p AICD ([employer]) 4. Acute anemia with five-point hemoglobin drop over the last 1 month. Reports dark stool x1 last week 5. PAFIB; AFIB burden 2.9% per recent device check. Presently SR 6. CAD/valvular disease: past CABG and TV/MV repair. clinically stable 7. HTN: controlled 8. Diabetes, II 9. KAMALJIT on CKD 10. H/o PE, DVT Recommendation Continue BB for rate control Eliquis held with anemia Secondary prevention. Continue ASA Ongoing pulmonary optimization Continue Coerg. No YASH/ARB with low end BP and KAMALJIT Resume oral Bumex and Jardiance upon discharge Supportive care Justicifation of Admission Dx: Justifications for Admission: Justification of Admission Dx: N/A KELLY HENNING MD 06/21/211912: CARDIO Progress Notes Assessment Assessment Patient seen and examined. Agree with PENSION ADMINISTRATOR's assessment and plan PAF maintaining SR Chr systolic HF compensated CAD clinically stable Valvulopathy s/p TV/MV repair stable Continue current medical regimen RAÚL GARCIA APRN Jun 21, 2021 11:53 KELLY HENNING MD Jun 21, 2021 19:13
[2021-06-21 14:42] VITALS: BP 118/70
[2021-06-21 18:42] VITALS: BP 119/73
[2021-06-21] MEDS: ATORVASTATIN CALCIUM 20 MG TABLET PO SCH (20:10)
[2021-06-21] MEDS: INSULIN GLARGINE SYRINGE. SQ SCH (20:10)
[2021-06-21 22:20] VITALS: BP 97/50
[2021-06-22 02:13] VITALS: BP 113/65
[2021-06-22] MEDS: methylPREDNISolone SOD SUCC PF 40 MG/ML VIAL. IV SCH ×2 (06:09→11:54)
[2021-06-22] MEDS: PANTOPRAZOLE 40 MG TABLET.DR. PO SCH (06:09)
[2021-06-22 06:29] LABS: CALCIUM 8.8 mg/dL (8.5-10.1); CREATININE 2.6 mg/dL (0.6-1.0); GFR 21.6; POTASSIUM 4.5 mmol/L (3.5-5.1)
[2021-06-22 07:00] VITALS: BP 121/70
[2021-06-22 07:13] LABS: BASO % 0 % (0-3); EOS % 0 % (0-3); HEMATOCRIT 27.2 % (36.0-47.0); LYMPH # 0.3 x10^3/uL (1.0-4.8); LYMPH % 2 % (24-48); MEAN CORPUSCULAR HEMOGLOBIN 28 pg (25-35); MEAN CORPUSCULAR HGB CONC 33 g/dL (31-37); MEAN CORPUSCULAR VOLUME 86 fL (79-100); MONO # 0.6 x10^3/uL (0.0-1.1); MONO % 5 % (0-9); NEUT # 13.3 x10^3/uL (1.8-7.7); NEUT % 93 % (31-73); PLATELET COUNT 303 x10^3/uL (140-400); RED BLOOD COUNT 3.16 x10^6/uL (3.50-5.40); WHITE BLOOD COUNT 14.3 x10^3/uL (4.0-11.0)
[2021-06-22] MEDS: BUDESONIDE 0.5 MG/2 ML NEBU. NEB SCH (07:21)
[2021-06-22] MEDS: ALBUTEROL SULFATE 2.5 MG/3 ML NEBU. NEB PRN (07:21)
[2021-06-22] MEDS: ASPIRIN ENTERIC COATED 81 MG TABLET.DR. PO SCH (07:45)
[2021-06-22] MEDS: CARVEDILOL 12.5 MG TABLET. PO SCH (07:46)
[2021-06-22] MEDS: INSULIN LISPRO 300 UNITS/3 ML VIAL. SQ SCH ×2 (07:46→11:54)
--- NOTE | 2021-06-22 07:50 | NUR ---
HOME O2 USE PRIOR TO ADMISSION WAS 2L/NC CONTINUOUS. MAY STILL NEED 6 MINUTE WALK TO DETERMINE IF PREVIOUSLY ESTABLISHED HOME O2 SERVICES IS SUFFICIENT.
--- NOTE | 2021-06-22 09:56 | PDOC ---
PULMONARY PROGRESS NOTES DATE: 06/22/21 TIME: 09:56 Subjective Patient now more short of air, nonproductive cough Vitals Vital Signs Date Time Temp Pulse Resp B/P (MAP) Pulse Ox O2 Delivery O2 Flow Rate FiO2 06/22/21 08:00 Nasal Cannula 2.0 06/22/21 07:46 80 121/70 06/22/21 07:22 99 06/22/21 07:00 98.0 18 98.0 ROS: No Nausea, No Chest Pain, No Abdominal Pain, No Increase Cough General: Alert, No acute distress Lungs: Clear, Other (Decreased breath sounds bilaterally) Cardiovascular: S1, S2 Abdomen: Soft Neuro Exam: Alert Extremities: No Edema Labs Laboratory Tests Test 06/20/21 11:18 06/20/21 13:55 06/20/21 17:23 06/20/21 20:16 Glucose (Fingerstick) 158 mg/dL (70-99) 404 mg/dL (70-99) 270 mg/dL (70-99) SARS-CoV-2 Antigen (Rapid) Negative (NEGATIVE) Test 06/21/21 07:25 06/21/21 07:46 06/21/21 11:39 06/21/21 16:23 White Blood Count 12.6 x10^3/uL (4.0-11.0) Red Blood Count 3.35 x10^6/uL (3.50-5.40) Hemoglobin 9.3 g/dL (12.0-15.5) Hematocrit 28.7 % (36.0-47.0) Mean Corpuscular Volume 86 fL (79-100) Mean Corpuscular Hemoglobin 28 pg (25-35) Mean Corpuscular Hemoglobin Concent 33 g/dL (31-37) Red Cell Distribution Width 19.3 % (11.5-14.5) Platelet Count 288 x10^3/uL (140-400) Neutrophils (%) (Auto) 90 % (31-73) Lymphocytes (%) (Auto) 4 % (24-48) Monocytes (%) (Auto) 6 % (0-9) Eosinophils (%) (Auto) 0 % (0-3) Basophils (%) (Auto) 0 % (0-3) Neutrophils # (Auto) 11.4 x10^3/uL (1.8-7.7) Lymphocytes # (Auto) 0.5 x10^3/uL (1.0-4.8) Monocytes # (Auto) 0.7 x10^3/uL (0.0-1.1) Eosinophils # (Auto) 0.0 x10^3/uL (0.0-0.7) Basophils # (Auto) 0.0 x10^3/uL (0.0-0.2) Sodium Level 138 mmol/L (136-145) Potassium Level 4.7 mmol/L (3.5-5.1) Chloride Level 101 mmol/L (98-107) Carbon Dioxide Level 29 mmol/L (21-32) Anion Gap 8 (6-14) Blood Urea Nitrogen 58 mg/dL (7-20) Creatinine 2.4 mg/dL (0.6-1.0) Estimated GFR (Cockcroft-Gault) 23.7 Glucose Level 286 mg/dL (70-99) Calcium Level 8.9 mg/dL (8.5-10.1) Magnesium Level 2.1 mg/dL (1.8-2.4) Glucose (Fingerstick) 280 mg/dL (70-99) 290 mg/dL (70-99) 152 mg/dL (70-99) Test 06/21/21 20:08 06/22/21 05:00 06/22/21 07:20 Glucose (Fingerstick) 240 mg/dL (70-99) 239 mg/dL (70-99) White Blood Count 14.3 x10^3/uL (4.0-11.0) Red Blood Count 3.16 x10^6/uL (3.50-5.40) Hemoglobin 9.0 g/dL (12.0-15.5) Hematocrit 27.2 % (36.0-47.0) Mean Corpuscular Volume 86 fL (79-100) Mean Corpuscular Hemoglobin 28 pg (25-35) Mean Corpuscular Hemoglobin Concent 33 g/dL (31-37) Red Cell Distribution Width 19.0 % (11.5-14.5) Platelet Count 303 x10^3/uL (140-400) Neutrophils (%) (Auto) 93 % (31-73) Lymphocytes (%) (Auto) 2 % (24-48) Monocytes (%) (Auto) 5 % (0-9) Eosinophils (%) (Auto) 0 % (0-3) Basophils (%) (Auto) 0 % (0-3) Neutrophils # (Auto) 13.3 x10^3/uL (1.8-7.7) Lymphocytes # (Auto) 0.3 x10^3/uL (1.0-4.8) Monocytes # (Auto) 0.6 x10^3/uL (0.0-1.1) Eosinophils # (Auto) 0.0 x10^3/uL (0.0-0.7) Basophils # (Auto) 0.0 x10^3/uL (0.0-0.2) Sodium Level 135 mmol/L (136-145) Potassium Level 4.5 mmol/L (3.5-5.1) Chloride Level 101 mmol/L (98-107) Carbon Dioxide Level 28 mmol/L (21-32) Anion Gap 6 (6-14) Blood Urea Nitrogen 68 mg/dL (7-20) Creatinine 2.6 mg/dL (0.6-1.0) Estimated GFR (Cockcroft-Gault) 21.6 Glucose Level 252 mg/dL (70-99) Calcium Level 8.8 mg/dL (8.5-10.1) Magnesium Level 2.0 mg/dL (1.8-2.4) Laboratory Tests Test 06/21/21 11:39 06/21/21 16:23 06/21/21 20:08 06/22/21 05:00 Glucose (Fingerstick) 290 mg/dL (70-99) 152 mg/dL (70-99) 240 mg/dL (70-99) White Blood Count 14.3 x10^3/uL (4.0-11.0) Red Blood Count 3.16 x10^6/uL (3.50-5.40) Hemoglobin 9.0 g/dL (12.0-15.5) Hematocrit 27.2 % (36.0-47.0) Mean Corpuscular Volume 86 fL (79-100) Mean Corpuscular Hemoglobin 28 pg (25-35) Mean Corpuscular Hemoglobin Concent 33 g/dL (31-37) Red Cell Distribution Width 19.0 % (11.5-14.5) Platelet Count 303 x10^3/uL (140-400) Neutrophils (%) (Auto) 93 % (31-73) Lymphocytes (%) (Auto) 2 % (24-48) Monocytes (%) (Auto) 5 % (0-9) Eosinophils (%) (Auto) 0 % (0-3) Basophils (%) (Auto) 0 % (0-3) Neutrophils # (Auto) 13.3 x10^3/uL (1.8-7.7) Lymphocytes # (Auto) 0.3 x10^3/uL (1.0-4.8) Monocytes # (Auto) 0.6 x10^3/uL (0.0-1.1) Eosinophils # (Auto) 0.0 x10^3/uL (0.0-0.7) Basophils # (Auto) 0.0 x10^3/uL (0.0-0.2) Sodium Level 135 mmol/L (136-145) Potassium Level 4.5 mmol/L (3.5-5.1) Chloride Level 101 mmol/L (98-107) Carbon Dioxide Level 28 mmol/L (21-32) Anion Gap 6 (6-14) Blood Urea Nitrogen 68 mg/dL (7-20) Creatinine 2.6 mg/dL (0.6-1.0) Estimated GFR (Cockcroft-Gault) 21.6 Glucose Level 252 mg/dL (70-99) Calcium Level 8.8 mg/dL (8.5-10.1) Magnesium Level 2.0 mg/dL (1.8-2.4) Test 06/22/21 07:20 Glucose (Fingerstick) 239 mg/dL (70-99) Medications Active Scripts Medications Dose Route/Sig Max Daily Dose Days Date Category Dose Instructions Breztri Aerosphere Inhaler (Budesonide/Glycopyr/Formoterol) 10.7 Gm Hfa.aer.ad 2 Puff PO BID 06/19/21 Reported Benzonatate 200 Mg Capsule 1 Cap PO TID PRN 06/19/21 Reported Eliquis (Apixaban) 5 Mg Tablet 1 Tab PO BID 06/19/21 Reported Miralax (Polyethylene Glycol 3350) 17 Gm Powd.pack 1 Packet PO DAILY 30 05/05/21 Rx dissolve in water Basaglar Kwikpen U-100 (Insulin Glargine,Hum.rec.anlog) 100 Unit/1 Ml Insuln.pen 10 Unit SQ QHS 30 05/04/21 Rx Codeine-Guaifen 10-100 mg/5 ml (Guaifenesin/Codeine Phosphate) 120 Ml Liquid 5 Ml PO TID PRN MDD 20 Milliliter(s) 4 04/18/21 Rx Klor-Con 10 (Potassium Chloride) 10 Meq Tablet.er 2 Meq PO DAILY 04/14/21 Reported Omeprazole 40 Mg Capsule.dr 1 Cap PO BID 04/14/21 Reported Olmesartan Medoxomil 40 Mg Tablet 1 Tab PO DAILY 04/14/21 Reported Carvedilol 12.5 Mg Tablet 1 Tab PO BID 04/14/21 Reported Duoneb 0.5-3(2.5) Mg/3 Ml (Albuterol/Ipratropium) 3 Ml Ampul.neb 1 Vial NEB QID PRN 04/14/21 Reported Vitamin D3 (Cholecalciferol (Vitamin D3)) 1,250 Mcg Capsule 1,250 Mcg PO DAILY 01/18/21 Reported Bumetanide 1 Mg Tablet 1 Mg PO DAILY 04/15/20 Reported Aspir 81 (Aspirin) 81 Mg Tablet.dr 1 Tab PO DAILY 05/04/15 Reported Atorvastatin Calcium 20 Mg Tablet 1 Tab PO HS 05/04/15 Reported Impression . 1. Acute on chronic hypoxic respiratory failure secondary to combination of underlying severe cardiomyopathy and acute exacerbation of chronic obstructive pulmonary disease. 2. Underlying cardiomyopathy with an ejection fraction of 20%. Status post automatic implantable cardioverter-defibrillator and mitral valve repair. 3. Underlying chronic obstructive pulmonary disease, which could be severe. 4. No definite consolidation seen on the chest x-ray. 5. Acute on chronic renal failure Plan . Updated 06/[address] Ortez, no need for VQ scan Patient feels better venous Dopplers were negative Discharge home when creatinine has improved NARCISO PRATER MD Jun 22, 2021 09:56
[2021-06-22 10:10] LABS: % BANDS 1 % (0-9); % LYMPHS 3 % (24-48); % MONOS 4 % (0-10); % SEGS 92 % (35-66)
[2021-06-22 10:11] LABS: ANISOCYTOSIS PRESENT; PLT ESTIMATE ADEQUATE (ADEQUATE)
[2021-06-22 11:00] VITALS: BP 122/72
[2021-06-22] MEDS: IPRATRPIUM/ALBUTEROL 0.5/2.5MG 3 ML NEBU. NEB SCH ×2 (11:25→15:25)
[2021-06-22] MEDS ORDERED: IV NORMAL SALINE 500ML BAG 500 ML IV ONE (12:00)
--- NOTE | 2021-06-22 12:20 | PDOC ---
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 06/22/21 1220: CARDIO Progress Notes Date and Time Date of Service 06/22/21 Time of Evaluation 1215 Subjective Subjective: No Chest Pain, No Palpitations, No Dizziness, Other (breathing improved ) Vitals Vitals Vital Signs Date Time Temp Pulse Resp B/P (MAP) Pulse Ox O2 Delivery O2 Flow Rate FiO2 06/22/21 11:25 100 Nasal Cannula 2.0 06/22/21 11:00 97.3 79 17 122/72 (89) 97.3 Weight Weight [ ] Input and Output Intake and Output Intake and Output 06/22/21 07:00 Intake Total 1040 ml Balance 1040 ml Intake Oral 1040 ml # Voids 1 Laboratory Labs Laboratory Tests Test 06/21/21 16:23 06/21/21 20:08 06/22/21 05:00 06/22/21 07:20 Glucose (Fingerstick) 152 mg/dL (70-99) 240 mg/dL (70-99) 239 mg/dL (70-99) White Blood Count 14.3 x10^3/uL (4.0-11.0) Red Blood Count 3.16 x10^6/uL (3.50-5.40) Hemoglobin 9.0 g/dL (12.0-15.5) Hematocrit 27.2 % (36.0-47.0) Mean Corpuscular Volume 86 fL (79-100) Mean Corpuscular Hemoglobin 28 pg (25-35) Mean Corpuscular Hemoglobin Concent 33 g/dL (31-37) Red Cell Distribution Width 19.0 % (11.5-14.5) Platelet Count 303 x10^3/uL (140-400) Neutrophils (%) (Auto) 93 % (31-73) Lymphocytes (%) (Auto) 2 % (24-48) Monocytes (%) (Auto) 5 % (0-9) Eosinophils (%) (Auto) 0 % (0-3) Basophils (%) (Auto) 0 % (0-3) Neutrophils # (Auto) 13.3 x10^3/uL (1.8-7.7) Lymphocytes # (Auto) 0.3 x10^3/uL (1.0-4.8) Monocytes # (Auto) 0.6 x10^3/uL (0.0-1.1) Eosinophils # (Auto) 0.0 x10^3/uL (0.0-0.7) Basophils # (Auto) 0.0 x10^3/uL (0.0-0.2) Segmented Neutrophils % 92 % (35-66) Band Neutrophils % 1 % (0-9) Lymphocytes % 3 % (24-48) Monocytes % 4 % (0-10) Platelet Estimate Adequate (ADEQUATE) Anisocytosis Present Sodium Level 135 mmol/L (136-145) Potassium Level 4.5 mmol/L (3.5-5.1) Chloride Level 101 mmol/L (98-107) Carbon Dioxide Level 28 mmol/L (21-32) Anion Gap 6 (6-14) Blood Urea Nitrogen 68 mg/dL (7-20) Creatinine 2.6 mg/dL (0.6-1.0) Estimated GFR (Cockcroft-Gault) 21.6 Glucose Level 252 mg/dL (70-99) Calcium Level 8.8 mg/dL (8.5-10.1) Magnesium Level 2.0 mg/dL (1.8-2.4) Test 06/22/21 10:19 Glucose (Fingerstick) 257 mg/dL (70-99) Physical Exam HEENT: Neck Supple W Full Motion Chest: Symmetric LUNGS: Other (diminished bases) Heart: RRR Abdomen: Soft N/T Extremities: Other (trace pedal edema ) Neurology: alert, oriented, follow commands Assessment Assessment 1. Acute on chronic respiratory failure likely secondary to COPD exacerbation. 2. Mild acute on chronic systolic heart failure; CXR without congestion. s/p IV Lasix. appears compensated 3. Chronic ischemic cardiomyopathy; EF at 25%. s/p AICD ([employer]) 4. Acute anemia with five-point hemoglobin drop over the last 1 month. Reports dark stool x1 last week 5. PAFIB; AFIB burden 2.9% per recent device check. Presently SR 6. CAD/valvular disease: past CABG and TV/MV repair. clinically stable 7. HTN: controlled 8. Diabetes, II 9. KAMALJIT on CKD; Cr ^ 2.6. IVFs ordered. 10. H/o PE, DVT Recommendation Continue BB for rate control Eliquis held with anemia Secondary prevention. Continue ASA Ongoing pulmonary optimization Continue Coerg. No YASH/ARB with low end BP and KAMALJIT Encouraged adequate hydration Consider renal consult Supportive care Justicifation of Admission Dx: Justifications for Admission: Justification of Admission Dx: N/A KELLY HENNING MD 06/22/21 1700: CARDIO Progress Notes Assessment Assessment Patient seen and examined. Agree with HELP DESK REP's assessment and plan PAF maintaining SR Chr systolic HF compensated CAD clinically stable Valvulopathy s/p TV/MV repair stable Continue current medical regimen RAÚL GARCIA APRN Jun 22, 2021 12:20 KELLY HENNING MD Jun 22, 2021 17:00
--- NOTE | 2021-06-22 12:41 | PDOC ---
[facility] PROGRESS NOTE Date of Service DOS: DATE: 06/22/21 TIME: 12:39 Chief Complaint Chief Complaint Acute hypoxic respiratory failure secondary to likely bacterial pneumonia versus CHF exacerbation versus COPD exacerbation KAMALJIT due to vasomotor nephropathy History of CABG Chronic systolic CHF, LVEF of 20 to 25% on echo 04/14/2021 History of ischemic cardiomyopathy, status post AICD placement. History of diabetes mellitus type 2 History of hypertension History of valvular surgery x2 History of AICD placement Admit to hospitalist service for further management Pulmonology consult Cardiology consult Continue as needed IV diuresis Daily IV steroids ordered Continue duo nebs and Pulmicort Home Eliquis for DVT prophylaxis Protonix GI prophylaxis ADA diet CODE STATUS full Discussed with RN and SW Disposition inpatient management as above DPOA: History of Present Illness History of Present Illness 76 year old female with history of CHF, on oxygen at home, presented to ER for evaluation due to 2-days history of shortness of air with exertion. Patient said when she was he tried to walk to the bathroom or do anything strenuous she having trouble breathing. Patient denies any cough or fever, denies any chest pain. Patient called her strip winder who instructed her to come to ER for evaluation. Patient was recently admitted here due to CHF exacerbation. 06/20 Patient evaluated examined at bedside this morning. She was on nasal cannula. Apparently required BiPAP overnight but removed without complication this morning. Echo being performed this morning along with lower extremity duplexes. VQ scan ordered per pulmonary. Reviewed pulmonology recommendations. Continue antibiotics for presumed bacterial pneumonia. Continue steroids and breathing treatments.. Cardiology consulted for fluid management. Reviewed their recommendations. Discussed with bedside RN. Continue as needed diuresis. 06/21 Patient evaluated examined at bedside. On nasal cannula resting in bed. Did well overnight. V/Q scan to be performed still. Cardiology and pulmonology following. Recommendations reviewed. Transition all orals on discharge. Discussed with bedside RN. Possible discharge this afternoon if VQ scan completed and okay with consultants. 06/22 Evaluated examined at bedside. Discussed with Dr. Santillan no need for VQ scan at this point. However worsening creatinine today. Respiratory status improved. Monitor creatinine. Give we will give a 500 bolus today recheck labs in the morning if improving will discharge with home health. Vitals/I&O Vitals/I&O: Vital Signs Date Time Temp Pulse Resp B/P (MAP) Pulse Ox O2 Delivery O2 Flow Rate FiO2 06/22/21 11:25 100 Nasal Cannula 2.0 06/22/21 11:00 97.3 79 17 122/72 (89) 97.3 I & O 06/21/21 06/21/21 06/22/21 15:00 23:00 07:00 Intake Total 540 ml 300 ml 200 ml Balance 540 ml 300 ml 200 ml Physical Exam General: Alert, Oriented X3, Cooperative Heart: Regular rate, Normal S1, Normal S2 Lungs: Clear, Other (Decreased breath sounds bilaterally) Abdomen: Normal bowel sounds, Soft, No tenderness Extremities: Normal pulses, Other (lower extremity swelling) Skin: No significant lesion Labs Labs: Laboratory Tests Test 06/21/21 16:23 06/21/21 20:08 06/22/21 05:00 06/22/21 07:20 Glucose (Fingerstick) 152 mg/dL (70-99) 240 mg/dL (70-99) 239 mg/dL (70-99) White Blood Count 14.3 x10^3/uL (4.0-11.0) Red Blood Count 3.16 x10^6/uL (3.50-5.40) Hemoglobin 9.0 g/dL (12.0-15.5) Hematocrit 27.2 % (36.0-47.0) Mean Corpuscular Volume 86 fL (79-100) Mean Corpuscular Hemoglobin 28 pg (25-35) Mean Corpuscular Hemoglobin Concent 33 g/dL (31-37) Red Cell Distribution Width 19.0 % (11.5-14.5) Platelet Count 303 x10^3/uL (140-400) Neutrophils (%) (Auto) 93 % (31-73) Lymphocytes (%) (Auto) 2 % (24-48) Monocytes (%) (Auto) 5 % (0-9) Eosinophils (%) (Auto) 0 % (0-3) Basophils (%) (Auto) 0 % (0-3) Neutrophils # (Auto) 13.3 x10^3/uL (1.8-7.7) Lymphocytes # (Auto) 0.3 x10^3/uL (1.0-4.8) Monocytes # (Auto) 0.6 x10^3/uL (0.0-1.1) Eosinophils # (Auto) 0.0 x10^3/uL (0.0-0.7) Basophils # (Auto) 0.0 x10^3/uL (0.0-0.2) Segmented Neutrophils % 92 % (35-66) Band Neutrophils % 1 % (0-9) Lymphocytes % 3 % (24-48) Monocytes % 4 % (0-10) Platelet Estimate Adequate (ADEQUATE) Anisocytosis Present Sodium Level 135 mmol/L (136-145) Potassium Level 4.5 mmol/L (3.5-5.1) Chloride Level 101 mmol/L (98-107) Carbon Dioxide Level 28 mmol/L (21-32) Anion Gap 6 (6-14) Blood Urea Nitrogen 68 mg/dL (7-20) Creatinine 2.6 mg/dL (0.6-1.0) Estimated GFR (Cockcroft-Gault) 21.6 Glucose Level 252 mg/dL (70-99) Calcium Level 8.8 mg/dL (8.5-10.1) Magnesium Level 2.0 mg/dL (1.8-2.4) Test 06/22/21 10:19 Glucose (Fingerstick) 257 mg/dL (70-99) Comment Review of Relevant I have reviewed the following items deirdre (where applicable) has been applied. Medications: Current Medications Medications (Trade) Dose Ordered Sig/Jeremy Route PRN Reason Start Time Stop Time Status Last Admin Dose Admin Sodium Chloride 500 ml @ 500 mls/hr 1X ONCE IV 06/22/21 12:00 06/22/21 12:59 06/22/21 12:06 Justifications for Admission Other Justification Acute respiratory failure SIMÓN ORO MD Jun 22, 2021 12:41
[2021-06-22 15:00] VITALS: BP 127/72
--- NOTE | 2021-06-22 15:35 | SNU/HH DC ---
DISCHARGE WITH HOME HEALTH DISCHARGE INFORMATION: Discharge Date: Jun 22, 2021 Final Diagnosis: chf exacb Condition on Discharge: Stable CODE STATUS: Code Status: Full HOME HEALTH: Face to Face: I certify this patient is under my care and that I, or a nurse practitioner or physician's promotional advertising assistant working with me, had a face to face encounter that meets the physician face to face encounter requirements with this patient on []. RN For Eval/Treatment: Yes Physical Therapy For: Evalulation/Treatment Occupational Therapy For: Evaluation/Treatment Pt Meets Homebound Status: Unsteady balance w/ amb,, Extreme weakness w/ amb., Fatigue w/ amb. POST DISCHARGE ORDERS: Activity Instructions for Disc: No restrictions Weight Bearing Status after Di: No restrictions DIET AFTER DISCHARGE: Cardiac Wound/Incision Care: Keep wound/cast CDI CHECKS AFTER DISCHARGE: Checks after discharge: Check blood press - daily, Check blood sugar, ac/hs CERTIFICATION STATEMENT: Certification Statement: Certification Statement: Based on the above finding, I certify that this patient is confined to the home and needs intermittent custodial care, physical therapy and/or speech therapy, or continues to need occupational therapy.~ This patient is under my care, and I have initiated the establishment of the plan of care.~ This patient will be followed by myself or a community physician who will periodically review the plan of care. Home Meds Active Scripts Polyethylene Glycol 3350 (MIRALAX) 17 Gm Powd.pack, 1 PACKET PO DAILY for constipation for 30 Days, #30 PACKET 0 Refills dissolve in water Prov:KRISHAN TURNER DO 05/05/21 Insulin Glargine,Hum.rec.anlog (Basaglar Kwikpen U-100) 100 Unit/1 Ml Insuln.pen, 10 UNIT SQ QHS for DM2 for 30 Days, #3 EACH 2 Refills Prov:SIMÓN PATINO MD 05/04/21 Guaifenesin/Codeine Phosphate (Codeine-Guaifen 10-100 mg/5 ml) 120 Ml Liquid, 5 ML PO TID PRN for cough and congestion MDD 20 Milliliter(s) for 4 Days, #120 ML 0 Refills Prov:RADAMES STOKES DO 04/18/21 Reported Medications Budesonide/Glycopyr/Formoterol (Breztri Aerosphere Inhaler) 10.7 Gm Hfa.aer.ad, 2 PUFF PO BID for COPD 06/19/21 Benzonatate (BENZONATATE) 200 Mg Capsule, 1 CAP PO TID PRN for cough 06/19/21 Apixaban (ELIQUIS) 5 Mg Tablet, 1 TAB PO BID for blood thinner 06/19/21 Potassium Chloride (KLOR-CON 10) 10 Meq Tablet.er, 2 MEQ PO DAILY for supplement 04/14/21 Omeprazole (OMEPRAZOLE) 40 Mg Capsule.dr, 1 CAP PO BID for GERD 04/14/21 Carvedilol (Carvedilol) 12.5 Mg Tablet, 1 TAB PO BID for HTN 04/14/21 Ipratropium/Albuterol Sulfate (DUONEB 0.5-3(2.5) MG/3 ML) 3 Ml Ampul.neb, 1 VIAL NEB QID PRN for COPD 04/14/21 Cholecalciferol (Vitamin D3) (Vitamin D3) 1,250 Mcg Capsule, 1250 MCG PO DAILY for , CAP 01/18/21 Bumetanide (BUMETANIDE) 1 Mg Tablet, 1 MG PO DAILY for CHF, TAB 04/15/20 Aspirin (ASPIR 81) 81 Mg Tablet.dr, 1 TAB PO DAILY, #30 TAB 5 Refills 05/04/15 Atorvastatin Calcium (ATORVASTATIN CALCIUM) 20 Mg Tablet, 1 TAB PO HS, #30 TAB 5 Refills 05/04/15 Discontinued Reported Medications Olmesartan Medoxomil (Olmesartan Medoxomil) 40 Mg Tablet, 1 TAB PO DAILY for HTN 04/14/21 SIMÓN ORO MD Jun 22, 2021 15:35
--- NOTE | 2021-06-22 15:58 | NUR ---
SS following up with discharge planning. SS reviewed pt chart and discussed with pt RN. Pt is currently requiring oxygen at two liters nasal canula. COVID19 negative. PT/OT recommended home with home healthcare. Pt is current on services with [facility], ; fax [phone]. Discharge orders received for home healthcare and sent to [facility]. Pt's RN notified.
--- NOTE | 2021-06-22 16:08 | NUR ---
DISCHARGE DISCHARGE INFORMATION REVIEWED WITH PATIENT. MEDICATION LIST REVIEWED, INCLUDING STOPPED MEDICATION AND THOSE REQUIRING AN ADDITIONAL DOSE YET TODAY. PLAN FOR RESUMPTION OF [facility] PROVIDER REVIEWED WELL. PIV ET TELE DISCONTINUED. PT DRESSED INDEPENDENTLY AND AWAITING E [employer] WEB DEVELOPER TO WHEEL TO FRONT DOORS FOR DISCHARGE.
[2021-06-22] MEDS ORDERED: INSULIN GLARGINE SYRINGE. SQ SCH (21:00)
--- NOTE | 2021-06-22 22:11 | PDOC3 ---
[facility]-Discharge Summary Date of Admission: Date of Admission: Jun 19, 2021 Date of Discharge: Date of Discharge: Jun 22, 2021 Admission Diagnosis: Admitting Diagnosis: chf exacerbation Hospital Course: Hospital Course: Chief Complaint Chief Complaint Acute hypoxic respiratory failure secondary to likely bacterial pneumonia versus CHF exacerbation versus COPD exacerbation KAMALJIT due to vasomotor nephropathy History of CABG Chronic systolic CHF, LVEF of 20 to 25% on echo 04/14/2021 History of ischemic cardiomyopathy, status post AICD placement. History of diabetes mellitus type 2 History of hypertension History of valvular surgery x2 History of AICD placement Admit to hospitalist service for further management Pulmonology consult Cardiology consult Continue as needed IV diuresis Daily IV steroids ordered Continue duo nebs and Pulmicort Home Eliquis for DVT prophylaxis Protonix GI prophylaxis ADA diet CODE STATUS full Discussed with RN and SW Disposition inpatient management as above DPOA: History of Present Illness History of Present Illness 76 year old female with history of CHF, on oxygen at home, presented to ER for evaluation due to 2-days history of shortness of air with exertion. Patient said when she was he tried to walk to the bathroom or do anything strenuous she having trouble breathing. Patient denies any cough or fever, denies any chest pain. Patient called her plant engineering manager who instructed her to come to ER for evaluation. Patient was recently admitted here due to CHF exacerbation. 06/20 Patient evaluated examined at bedside this morning. She was on nasal cannula. Apparently required BiPAP overnight but removed without complication this morning. Echo being performed this morning along with lower extremity duplexes. VQ scan ordered per pulmonary. Reviewed pulmonology recommendations. Continue antibiotics for presumed bacterial pneumonia. Continue steroids and breathing treatments.. Cardiology consulted for fluid management. Reviewed their recommendations. Discussed with bedside RN. Continue as needed diuresis. 06/21 Patient evaluated examined at bedside. On nasal cannula resting in bed. Did well overnight. V/Q scan to be performed still. Cardiology and pulmonology following. Recommendations reviewed. Transition all orals on discharge. Discussed with bedside RN. Possible discharge this afternoon if VQ scan completed and okay with consultants. 06/22 Evaluated examined at bedside. Discussed with Dr. Santillan no need for VQ scan at this point. However worsening creatinine today. Respiratory status improved. Monitor creatinine. Give we will give a 500 bolus today recheck labs in the morning if improving will discharge with home health. Discussed with patient at great length about her increasing creatinine. She and her were not very concerned about it I encouraged her to stay another night so that we can recheck labs in the morning. They are still very adamant about discharging home. At the same time had a VQ scan not be delayed we would never have seen this creatinine increase. Informed her I highly recommend she contact her kidney doctor Dr. Vaz in the morning about this and with recommending follow-up labs. She is agreeable to this. Discharge home today. Greater than 30 minutes spent on this discharge. 22 minutes advance care planning. Disposition: Disposition/Orders: D/C to Home Activity: Activity: Resume previous activity Diet: Diet: Renal, Cardiac Medications: Home Meds Active Scripts Polyethylene Glycol 3350 (MIRALAX) 17 Gm Powd.pack, 1 PACKET PO DAILY for constipation for 30 Days, #30 PACKET 0 Refills dissolve in water Prov:KRISHAN TURNER DO 05/05/21 Insulin Glargine,Hum.rec.anlog (Basaglar Kwikpen U-100) 100 Unit/1 Ml Insuln.pen, 10 UNIT SQ QHS for DM2 for 30 Days, #3 EACH 2 Refills Prov:SIMÓN PATINO MD 05/04/21 Guaifenesin/Codeine Phosphate (Codeine-Guaifen 10-100 mg/5 ml) 120 Ml Liquid, 5 ML PO TID PRN for cough and congestion MDD 20 Milliliter(s) for 4 Days, #120 ML 0 Refills Prov:RADAMES STOKES DO 04/18/21 Reported Medications Budesonide/Glycopyr/Formoterol (Breztri Aerosphere Inhaler) 10.7 Gm Hfa.aer.ad, 2 PUFF PO BID for COPD 06/19/21 Benzonatate (BENZONATATE) 200 Mg Capsule, 1 CAP PO TID PRN for cough 06/19/21 Apixaban (ELIQUIS) 5 Mg Tablet, 1 TAB PO BID for blood thinner 06/19/21 Potassium Chloride (KLOR-CON 10) 10 Meq Tablet.er, 2 MEQ PO DAILY for supplement 04/14/21 Omeprazole (OMEPRAZOLE) 40 Mg Capsule.dr, 1 CAP PO BID for GERD 04/14/21 Carvedilol (Carvedilol) 12.5 Mg Tablet, 1 TAB PO BID for HTN 04/14/21 Ipratropium/Albuterol Sulfate (DUONEB 0.5-3(2.5) MG/3 ML) 3 Ml Ampul.neb, 1 VIAL NEB QID PRN for COPD 04/14/21 Cholecalciferol (Vitamin D3) (Vitamin D3) 1,250 Mcg Capsule, 1250 MCG PO DAILY for , CAP 01/18/21 Bumetanide (BUMETANIDE) 1 Mg Tablet, 1 MG PO DAILY for CHF, TAB 04/15/20 Aspirin (ASPIR 81) 81 Mg Tablet.dr, 1 TAB PO DAILY, #30 TAB 5 Refills 05/04/15 Atorvastatin Calcium (ATORVASTATIN CALCIUM) 20 Mg Tablet, 1 TAB PO HS, #30 TAB 5 Refills 05/04/15 Discontinued Reported Medications Olmesartan Medoxomil (Olmesartan Medoxomil) 40 Mg Tablet, 1 TAB PO DAILY for HTN 04/14/21 Scheduled Apixaban (Eliquis), 1 TAB PO BID, (Reported) Aspirin (Aspir 81), 1 TAB PO DAILY, (Reported) Atorvastatin Calcium (Atorvastatin Calcium), 1 TAB PO HS, (Reported) Budesonide/Glycopyr/Formoterol (Breztri Aerosphere Inhaler), 2 PUFF PO BID, (Reported) Bumetanide (Bumetanide), 1 MG PO DAILY, (Reported) Carvedilol (Carvedilol), 1 TAB PO BID, (Reported) Cholecalciferol (Vitamin D3) (Vitamin D3), 1,250 MCG PO DAILY, (Reported) Insulin Glargine,Hum.rec.anlog (Basaglar Kwikpen U-100), 10 UNIT SQ QHS Omeprazole (Omeprazole), 1 CAP PO BID, (Reported) Polyethylene Glycol 3350 (Miralax), 1 PACKET PO DAILY Potassium Chloride (Klor-Con 10), 2 MEQ PO DAILY, (Reported) Scheduled PRN Benzonatate (Benzonatate), 1 CAP PO TID PRN for cough, (Reported) Guaifenesin/Codeine Phosphate (Codeine-Guaifen 10-100 mg/5 ml), 5 ML PO TID PRN for cough and congestion Ipratropium/Albuterol Sulfate (Duoneb 0.5-3(2.5) Mg/3 Ml), 1 VIAL NEB QID PRN for COPD, (Reported) Discontinued Medications Olmesartan Medoxomil (Olmesartan Medoxomil), 1 TAB PO DAILY, (Reported) Justicifation of Admission Dx: Justifications for Admission: Justification of Admission Dx: N/A SIMÓN ORO MD Jun 22, 2021 22:11
== END 2021-06-22 16:40 | disposition home health service (06) | DRG 193 ==
LOC: ER 19:01 → 6 SOUTH 21:05
PROVIDERS: ADMIT Internal Medicine; ATTEND Internal Medicine
PROC: 5A09357 Assistance with Respiratory Ventilation, Less than 24 Consecutive Hours, Continuous Positive Airway Pressure (ICD-10-PCS; principal; 2021-06-20)
DX: J15.9 Unspecified bacterial pneumonia (principal); J96.21 Acute and chronic respiratory failure with hypoxia; N17.0 Acute kidney failure with tubular necrosis; I50.23 Acute on chronic systolic (congestive) heart failure; J44.1 Chronic obstructive pulmonary disease with (acute) exacerbation; I13.0 Hypertensive heart and chronic kidney disease with heart failure and stage 1 through stage 4 chronic kidney disease, or unspecified chronic kidney disease; J44.0 Chronic obstructive pulmonary disease with (acute) lower respiratory infection; D64.9 Anemia, unspecified; E11.22 Type 2 diabetes mellitus with diabetic chronic kidney disease; E78.00 Pure hypercholesterolemia, unspecified; E78.5 Hyperlipidemia, unspecified; I25.10 Atherosclerotic heart disease of native coronary artery without angina pectoris; I25.5 Ischemic cardiomyopathy; I48.0 Paroxysmal atrial fibrillation; N18.9 Chronic kidney disease, unspecified; Z86.711 Personal history of pulmonary embolism; Z87.891 Personal history of nicotine dependence; Z95.1 Presence of aortocoronary bypass graft; Z95.810 Presence of automatic (implantable) cardiac defibrillator; K21.9 Gastro-esophageal reflux disease without esophagitis
CPT/HCPCS: 36415; 36600; 71045; 80048; 80053; 82805; 82962; 83735; 83880; 84100; 84484; 85007; 85025; 87426; 93005; 93970; 94640; 94660; 94760; 96374; J1815; J1940; J2060; J2920; J3490; J7040; U0003; 92526-GN; 92610-GN; 97110-GP; 97116-GP; 97530-GO; 97535-GO; 99285-25; G0378; J7613; J7626

== ENCOUNTER → 2021-07-04 | Outpatient (CLI) | payer OTHER, MEDICARE ==
[2021-06-22 15:00] VITALS: BP 127/72
[~2021-07-04] MED LIST changes: +BENZ200C47 PO; +BUDE10.7 PO
--- NOTE | 2021-07-04 17:08 | RAD ---
EXAM: CT CHEST WITHOUT [id number] LUNG SCREENING HISTORY: Lung cancer screening. Ex-smoker. Asthma, COPD, CHF, CABG COMPARISON: CT chest from 04/15/2020 TECHNIQUE: Helical CT of the chest performed without contrast. Coronal and sagittal reformats were o btained. One or more of the following individualized dose reduction techniques were utilized for this examinat ion: 1. Automated exposure control 2. Adjustment of the mA and/or kV according to patient size 3. Use of iterative reconstruction technique. FINDINGS: Thyroid gland and thoracic inlet: Normal. Heart and great vessels: The heart is enlarged. There is a pacemaker/AICD in place. No pericardial ef fusion. There are coronary artery calcifications and surgical changes of CABG. Mediastinum and jim: No mediastinal or hilar lymphadenopathy. Lungs and pleura: There are new nodular opacities along the left major fissure measuring up to 1.6 cm , likely atelectasis. There is a possible new 6 mm groundglass nodule in the left apex (image 51, ser ies 2). There is a 1.7 cm nodule along the right major fissure on image 188, series 2). There are inc reased patchy consolidative opacities in the posterior medial right lower lobe, likely atelectasis or pneumonia. Unchanged 3 mm nodule along the right major fissure (image 180, series 2). A few addition al scattered 2 to 3 mm nodules in the right lung are unchanged. Unchanged 4 mm nodule in the anterior left apex (image 43, series 2). Mild centrilobular emphysema. There is airway wall thickening. No no pleural effusion or pneumothorax Chest wall and axillae: No axillary lymphadenopathy. Upper abdomen: Calcified atherosclerosis in the abdominal aorta. Bones: No acute osseous abnormality. IMPRESSION: 1. New nodular opacities along both major fissures measuring 1.7 cm on the right and 1.6 cm on the l eft. Based on size criteria these are suspicious (lung RADS category 4B), however the appearance is f avored to be due to atelectasis rather than actual pulmonary nodules. Recommend short interval follow -up CT in 1-3 months to reevaluate. 2. Possible new 6 mm groundglass nodule in the right apex. This can be reevaluated and short interva l follow-up CT as above. 3. Several additional pulmonary nodules measuring up to 4 mm are unchanged. 4. Increased patchy opacities in the posterior medial right lower lobe, likely atelectasis or pneumo alesha. 5. Mild emphysema. Cardiomegaly. Electronically signed by: Carina Mcknight MD (07/04/2021 5:05 PM) [id number]
== END ==
LOC: CT 14:42
PROVIDERS: ATTEND Internal Medicine Pulmonary Disease
DX: R91.8 Other nonspecific abnormal finding of lung field (principal); I25.10 Atherosclerotic heart disease of native coronary artery without angina pectoris; I51.7 Cardiomegaly; I70.0 Atherosclerosis of aorta; J43.2 Centrilobular emphysema; Z95.1 Presence of aortocoronary bypass graft; Z95.0 Presence of cardiac pacemaker; Z87.891 Personal history of nicotine dependence
CPT/HCPCS: 71271

== ENCOUNTER 2021-07-10 17:54 | Emergency (ER) | payer OTHER, MEDICARE ==
[~2021-07-10] VITALS: Ht 160 cm; Wt 57.3 kg
[2021-07-10 18:26] LABS: BASO # 0.1 x10^3/uL (0.0-0.2); BASO % 1 % (0-3); EOS # 0.5 x10^3/uL (0.0-0.7); EOS % 8 % (0-3); HEMATOCRIT 28.8 % (36.0-47.0); HEMOGLOBIN 9.3 g/dL (12.0-15.5); LYMPH # 1.2 x10^3/uL (1.0-4.8); LYMPH % 20 % (24-48); MEAN CORPUSCULAR HEMOGLOBIN 29 pg (25-35); MEAN CORPUSCULAR HGB CONC 32 g/dL (31-37); MEAN CORPUSCULAR VOLUME 89 fL (79-100); MONO # 0.7 x10^3/uL (0.0-1.1); MONO % 10 % (0-9); NEUT # 3.8 x10^3/uL (1.8-7.7); NEUT % 61 % (31-73); PLATELET COUNT 174 x10^3/uL (140-400); RED BLOOD COUNT 3.23 x10^6/uL (3.50-5.40); RED CELL DISTRIBUTION WIDTH 20.3 % (11.5-14.5); WHITE BLOOD COUNT 6.3 x10^3/uL (4.0-11.0)
--- NOTE | 2021-07-10 18:35 | PHYS DOC ---
Past Medical History Past Medical History: Asthma, CHF, COPD, Diabetes-Type II, GERD, High Cho lesterol, Heart Disease, Hypertension, Renal Disease Past Surgical History: Coronary Bypass Surgery, Pacemaker Additional Past Surgical Histo: VALVE REPAIR x's 2, AICD Smoking Status: Former Smoker Alcohol Use: None Drug Use: None General Adult EDM: Chief Complaint: HYPERTENSION HPI: HPI: Patient is a 76 year old female who presents with sitting at home when suddenly she started having palpitations. Her then took her blood pressure and it was in the 160s. Patient states she was feeling fine and was having a good day. She states she was not stressed or anxious. She denies chest pain, dizziness, syncope, cold sweat, numbness or tingling, focal weakness, vision change, abdominal pain, nausea, vomiting, diarrhea, fever. She states she has been taking all of her medications as prescribed. Patient has a history of A. fib, diabetes, COPD with 2 L of oxygen, CHF, asthma, high cholesterol, heart disease, hypertension, [employer] pacemaker, renal disease, coronary bypass, smoking. Review of Systems: Review of Systems: Constitutional: Denies fever or chills. [] Eyes: Denies change in visual acuity. [] HENT: Denies nasal congestion or sore throat. [] Respiratory: Denies cough or shortness of breath. [] Cardiovascular: Denies chest pain or edema. +palpitations. +htn [] GI: Denies abdominal pain, nausea, vomiting, bloody stools or diarrhea. [] : Denies dysuria. [] Musculoskeletal: Denies back pain or joint pain. [] Integument: Denies rash. [] Neurologic: Denies headache, focal weakness or sensory changes. [] Endocrine: Denies polyuria or polydipsia. [] Lymphatic: Denies swollen glands. [] Psychiatric: Denies depression or anxiety. [] Heart Score: C/O Chest Pain: No (no chest pain or pressure) HEART Score for Chest Pain: HEART Score for Chest Pain Response (Comments) Value History Slighlty/Non-Suspicious 0 ECG Nonspecific Repolarizatio 1 Age > 65 2 Risk Factors >3 Risk Factors or Hx CAD 2 Troponin < Normal Limit 0 Total 5 Allergies: Allergies: Allergies Coded Allergies Type Severity Reaction Last Updated Verified No Known Drug Allergies 04/27/21 No Physical Exam: PE: Constitutional: Well developed, well nourished, no acute distress, non-toxic appearance. [] HENT: Normocephalic, atraumatic, bilateral external ears normal, oropharynx moist, no oral exudates, nose normal. [] Eyes: PERRLA, EOMI, conjunctiva normal, no discharge. [] Neck: Normal range of motion, no tenderness, supple, no stridor. [] Cardiovascular:Heart rate irregular rhythm, no murmur [] Lungs & Thorax: Bilateral breath sounds clear to auscultation [] Abdomen: Bowel sounds normal, soft, no tenderness, no masses, no pulsatile masses. [] Skin: Warm, dry, no erythema, no rash. [] Back: No tenderness, no CVA tenderness. [] Extremities: No tenderness, no cyanosis, no clubbing, ROM intact, bilateral lower 2+ edema. [] Neurologic: Alert and oriented X 3, normal motor function, normal sensory function, no focal deficits noted. [] Psychologic: Affect normal, judgement normal, mood normal. [] EKG: EK and read by Dr. Soriano as Right bundle branch block, diffuse T wave inversio ns, no STEMI Radiology/Procedures: Radiology/Procedures: [] Impression: [facility] [address] [facility] [place] [address] IMAGING REPORT Signed PATIENT: MAJO CONNOLLY JACCOUNT: [id number] : 1945 LOCATION: ER AGE: 76 SEX: F EXAM STATUS: REG ER ORD. PHYSICIAN: JANETT GOYAL APRN REASON: palpitations PROCEDURE: PORTABLE CHEST 1V Study: XR CHEST 1V Indication: Palpitations. Comparison: 06/20/2021 Findings: Unchanged enlargement of the cardiomediastinal silhouette. Left chest wall dual- lead pacer/AICD. Unchanged sequela of surgery. Aortic calcific atherosclerosis. No lobar consolidation or pneumothorax. Minimal increased thickness of the right minor fissure. There is again blunting of the left costophrenic angle from probable mild basilar atelectasis on the left. No newly apparent focal airspace abnormality. Impression: Possible minimally increased interstitial edema with the minor fissure better seen on this study. Unchanged small left pleural effusion. Electronically signed by: ANAHI JOHN MD (07/10/2021 7:16 PM) [facility] DICTATED and SIGNED BY: ANAHI JOHN MD DATE: 07/10/211913 Course & Med Decision Making: Course & Med Decision Making Pertinent Labs and Imaging studies reviewed. (See chart for details) See HPI. Alert and oriented x4. Ambulatory steady gait. Speaks in full clear sentences. She is on 2 L oxygen at all times. She is satting at 100%. Bilateral ankles and feet are 2+ swollen of which she states is normal for her. She states she is feeling fine at this time. Lungs are clear to auscultation in all lobes. Vital signs are within normal limits. EKG is same compared to old ekg. Blood work unremarkable. Patient continues to feel fine and states she feels great. She continues to deny chest pain, soa, numbness or tingling, light headedness, dizziness, weakness. Vital signs continue to be normal. Patient is stable and agree to call her physician in the morning. [] Dragon Disclaimer: Dragon Disclaimer: This electronic medical record was generated, in whole or in part, using a voice recognition dictation system. Departure Departure Impression: Primary Impression: Palpitations Disposition: HOME / SELF CARE / HOMELESS Condition: STABLE Referrals: SHAHAB GARCIA MD (PCP) Patient Instructions: Palpitations, Urinary Tract Infection Additional Instructions: Follow up with primary care provider in the morning. Drink plenty of fluids. Take medication as prescribed. If you begin having chest pain, shortness of breath, numbness or tingling, cold sweat, left arm pain, chest pressure call 911. Scripts Nitrofurantoin Monohyd/M-Cryst (MACROBID 100 MG CAPSULE) 100 Mg Capsule 1 CAP PO BID for 7 Days, #14 CAP 0 Refills Prov: JANETT GOYAL APRN 07/10/21 JANETT GOYAL APRN July 10, 2021 18:35
[2021-07-10 19:07] LABS: BACTERIA,URINE FEW /HPF (0-FEW); WBC,URINE TNTC /HPF (0-4)
[2021-07-10 19:11] LABS: PLT ESTIMATE ADEQUATE (ADEQUATE)
[2021-07-10 19:14] LABS: ANISOCYTOSIS MOD; POLYCHROMASIA SLIGHT
--- NOTE | 2021-07-10 19:19 | RAD ---
Study: XR CHEST 1V Indication: Palpitations. Comparison: 06/20/2021 Findings: Unchanged enlargement of the cardiomediastinal silhouette. Left chest wall dual-lead pacer/AICD. Unch anged sequela of surgery. Aortic calcific atherosclerosis. No lobar consolidation or pneumothorax. Mi nimal increased thickness of the right minor fissure. There is again blunting of the left costophreni c angle from probable mild basilar atelectasis on the left. No newly apparent focal airspace abnormal ity. Impression: Possible minimally increased interstitial edema with the minor fissure better seen on this study. Unc hanged small left pleural effusion. Electronically signed by: ANAHI JOHN MD (07/10/2021 7:16 PM) [facility]
[2021-07-10] MEDS ORDERED: cefTRIAXone IV Push 1 GM VIAL. IVP ONE (19:30)
[2021-07-10 19:53] LABS: CALCIUM 8.6 mg/dL (8.5-10.1); CREATININE 1.6 mg/dL (0.6-1.0); GFR 37.8; POTASSIUM 4.1 mmol/L (3.5-5.1)
[2021-07-10 19:59] LABS: ALBUMIN 2.4 g/dL (3.4-5.0); ALBUMIN/GLOBULIN RATIO 0.5 (1.0-1.7); MAGNESIUM 1.8 mg/dL (1.8-2.4); TOTAL BILIRUBIN 0.3 mg/dL (0.2-1.0); TOTAL PROTEIN 6.8 g/dL (6.4-8.2)
--- NOTE | 2021-07-10 20:06 | EKG ---
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
[2021-07-10] MEDS ORDERED: NITR100C62 PO (20:21)
[2021-07-10 20:30] VITALS: BP 149/72
== END 2021-07-10 20:35 | disposition home or self-care (01) ==
LOC: ER 17:54
DX: R00.2 Palpitations (principal); J44.9 Chronic obstructive pulmonary disease, unspecified; I11.0 Hypertensive heart disease with heart failure; I50.9 Heart failure, unspecified; E11.9 Type 2 diabetes mellitus without complications; K21.9 Gastro-esophageal reflux disease without esophagitis; E78.00 Pure hypercholesterolemia, unspecified; Z95.1 Presence of aortocoronary bypass graft; Z95.0 Presence of cardiac pacemaker
CPT/HCPCS: 36415; 71045; 80053; 81001; 83735; 83880; 84484; 85025; 87086; 93005; 96374; 99285; J0696